=== PATIENT | female | born 1980 | race American Indian/Alaskan Native ===

== ENCOUNTER 2022-02-10 18:36 | Inpatient (IN) | payer MEDICARE ==
[2022-02-10] MEDS ORDERED: ACETAMINOPHEN 650 MG RECT SUPP PR STA (19:26)
[2022-02-10] MEDS ORDERED: SODIUM CHLORIDE 0.9% 500 ML 500 ML IV ONE (19:26)
[2022-02-10] MEDS ORDERED: cefTRIAXone/NS 1 GM/50 ML 1 GM/50 ML BAG IV ONE (19:46)
--- NOTE | 2022-02-10 20:26 | XRay Report ---
CHEST 1 VIEW 02/10/2022 7:20 PM INDICATION / CLINICAL INFORMATION: possible Sepsis. COMPARISON: None available. FINDINGS: SUPPORT DEVICES: None. HEART / MEDIASTINUM: No significant abnormality. LUNGS / PLEURA: Right greater than left coarsened interstitial markings may represent an atypical inf ectious process. No pneumothorax. ADDITIONAL FINDINGS: No significant additional findings. IMPRESSION: 1. Right lung infiltrates possibly representing developing pneumonia. Signer Name: Isaak Vital MD Signed: 02/10/2022 8:22 PM Workstation Name: [email or web address]
[2022-02-10 20:53] LABS: Basophils % (Auto) 0.1 % (0.0-1.8); Hemoglobin 9.9 gm/dl (10.1-14.3); Lymphocytes # (Auto) 0.5 K/mm3 (1.2-5.4); Lymphocytes % (Auto) 4.2 % (13.4-35.0); Mean Corpuscular HGB Conc 32 % (30-34); Mean Corpuscular Volume 91 fl (79-97); Monocytes % (Auto) 8.4 % (0.0-7.3); Platelet Count 642 K/mm3 (140-440); Red Cell Distribution Width 14.8 % (13.2-15.2)
[2022-02-10 20:58] LABS: INR 1.12 (0.87-1.13)
[2022-02-10 21:06] LABS: Albumin 3.2 g/dL (3.9-5); Calcium 11.8 mg/dL (8.4-10.2)
[2022-02-10 21:38] LABS: Chol/HDL Ratio 3.61 %
[2022-02-10 21:50] LABS: Color,Urine Yellow (Yellow)
[2022-02-10 21:53] LABS: Bacteria,Urine 3+ /HPF (Negative); Mucus,Urine FEW /HPF
[2022-02-10 21:54] LABS: Ictotest,Urine Negative (Negative)
[2022-02-10] MEDS ORDERED: SODIUM CHLORIDE 0.9% 1000 ML 1,000 ML ONE (22:04)
[2022-02-10] MEDS ORDERED: POTASSIUM CHLORIDE ER 20 MEQ TAB PO ONE (22:17)
--- NOTE | 2022-02-10 22:21 | Emergency Department Report ---
ED General Adult HPI - General Chief complaint: Altered Mental Status Stated complaint: AMS PUI?: No Time Seen by Provider: 02/10/22 19:45 Source: EMS Mode of arrival: Stretcher Limitations: Altered Mental Status - History of Present Illness Initial comments: Per EMS pt coming from [facility] was found to have AMS around 1500, per staff pt usually verbal however pt is now non-verbal and just looking around Pt febrile, tachycardic with HR of 140 -: days(s) Severity scale (0 -10): 0 Consistency: constant Improves with: none Worsens with: none Associated Symptoms: confusion, fever/chills, weakness Treatments Prior to Arrival: none - Related Data Allergies Allergy/AdvReac Type Severity Reaction Status Date / Time Penicillins Allergy Unknown Verified 02/10/22 19:25 ED Review of Systems ROS: Stated complaint: AMS Other details as noted in HPI Constitutional: denies: chills, fever Eyes: denies: eye pain, eye discharge, vision change ENT: denies: ear pain, throat pain Respiratory: denies: cough, shortness of breath, wheezing Cardiovascular: denies: chest pain, palpitations Endocrine: no symptoms reported Gastrointestinal: denies: abdominal pain, nausea, diarrhea Genitourinary: denies: urgency, dysuria, discharge Musculoskeletal: denies: back pain, joint swelling, arthralgia Skin: denies: rash, lesions Neurological: denies: headache, weakness, paresthesias Psychiatric: denies: anxiety, depression Hematological/Lymphatic: denies: easy bleeding, easy bruising ED Past Medical Hx - Past Medical History Previous Medical History?: No Hx Hypertension: No Hx HIV: Yes Additional medical history: chronic resp failure - Social History Smoking Status: Unknown if ever smoked ED Physical Exam - General Limitations: Altered Mental Status General appearance: lethargic, cachectic - Head Head exam: Present: atraumatic, normocephalic - Eye Eye exam: Present: normal appearance - ENT ENT exam: Present: mucous membranes moist - Neck Neck exam: Present: normal inspection - Respiratory Respiratory exam: Present: rales. Absent: respiratory distress - Cardiovascular Cardiovascular Exam: Present: normal rhythm, tachycardia. Absent: systolic murmur, diastolic murmur, rubs, gallop - GI/Abdominal GI/Abdominal exam: Present: soft, normal bowel sounds - Extremities Exam Extremities exam: Present: normal inspection - Back Exam Back exam: Present: normal inspection - Expanded Neurological Exam Expanded Neurological exam: Present: innattentive Best Eye Response (Spring): (4) open spontaneously Best Motor Response (Spring): (6) obeys commands Best Verbal Response (Spring): (4) confused conversation Spring Total: 14 - Psychiatric Psychiatric exam: Present: normal affect, normal mood - Skin Skin exam: Present: warm, dry, intact, normal color. Absent: rash ED Course Vital Signs 02/10/22 02/10/22 02/10/22 19:15 20:24 20:25 Temperature 101.5 F H 100.9 F H Pulse Rate 140 H 128 H 117 H Respiratory 26 H 39 H 22 Rate Blood Pressure 114/84 Blood Pressure 112/70 [Left] O2 Sat by Pulse 98 80 L Oximetry 02/10/22 02/10/22 02/10/22 20:30 20:46 21:00 Temperature Pulse Rate 126 H 124 H 119 H Respiratory 37 H 33 H 30 H Rate Blood Pressure 114/84 109/82 109/82 Blood Pressure [Left] O2 Sat by Pulse 89 92 94 Oximetry 02/10/22 02/10/22 02/10/22 21:16 21:30 21:45 Temperature Pulse Rate 119 H 118 H 118 H Respiratory 31 H 32 H 37 H Rate Blood Pressure 107/80 107/80 113/79 Blood Pressure [Left] O2 Sat by Pulse 95 97 98 Oximetry 02/10/22 22:01 Temperature Pulse Rate 116 H Respiratory 32 H Rate Blood Pressure 113/79 Blood Pressure [Left] O2 Sat by Pulse 99 Oximetry ED Medical Decision Making - Lab Data Result diagrams: 02/10/22 19:58 02/10/22 19:58 - EKG Data -: EKG Interpreted by Pr EKG shows normal: sinus rhythm Rate: tachycardia - EKG Data Interpretation: no acute changes, nonspecific ST-T wave katie Critical care attestation.: If time is entered above; I have spent that time in minutes in the direct care of this critically ill patient, excluding procedure time. ED Disposition Clinical Impression: Fever, Altered mental status, Pneumonia, Hypokalemia Disposition: ADMITTED INPATIENT Is pt being admited?: Yes Does the pt Need Aspirin: No Condition: Fair Instructions: Bacterial Pneumonia (ED) Referrals: XANDER GARCIA MD [Primary Care Provider] - 3-5 Days
[2022-02-10] MEDS ORDERED: ACETAMINOPHEN 325 MG TAB PO PRN (22:29)
[2022-02-10] MEDS ORDERED: MORPHINE 4 MG/1 ML INJ IV PRN (22:29)
[2022-02-10] MEDS ORDERED: MORPHINE 2 MG/1 ML INJ IV PRN (22:29)
[2022-02-10] MEDS ORDERED: ONDANSETRON 4 MG/2 ML INJ IV PRN (22:29)
[2022-02-10] MEDS ORDERED: MAGNESIUM HYDROXIDE (MOM) ORAL LIQD UDC PO PRN (22:29)
[2022-02-10] MEDS ORDERED: SODIUM CHLORIDE 0.9% 1000 ML 1,000 ML IV SCH (22:30)
--- NOTE | 2022-02-10 22:37 | History and Physical Report ---
History of Present Illness Date of examination: 02/10/22 Date of admission: 02/10/2022 Chief complaint: Altered Mental Status History of present illness: 41 year year female with known history of HIV -CD4 count unknown resident of a nursing brought in to the emergency room today for evaluation of changes in mental status. Most of the history was obtained from the ER staff as patient is unable to give any history at this time. Patient was said to have been having a fever in the [facility]. There has been no history of fall, no nausea or vomiting, no diarrhea, no hematuria or dysuria. Upon arrival in the emergency room patient was found to be tachycardic with heart rate in the 140s. Work-up in the emergency room today, lab reveals mild leukocytosis of 11.5, sodium of 146, hypokalemia of 2.7, BUN of 82 and creatinine of 1.8. Troponin 0.375. Urinalysis was significant for few WBCs and 3+ bacteria. Chest x-ray shows right lung infiltrate possibly representing developing pneumonia. Patient started on empiric IV antibiotics and IV fluid. Potassium is also being repleted. Past History Past Medical History: HIV/AIDS, other (Chronic Respiratory Failure ) Past Surgical History: No surgical history Social history: other (Resides in a Detention) Family history: no significant family history Medications and Allergies Allergies Allergy/AdvReac Type Severity Reaction Status Date / Time Penicillins Allergy Unknown Verified 02/10/22 19:25 Active Meds: Active Medications Acetaminophen (Acetaminophen 325 Mg Tab) 650 mg PO Q4H PRN PRN Reason: Pain MILD(1-3)/Fever >100.5/BONNER Heparin Sodium (Porcine) (Heparin 5,000 Unit/1 Ml Vial) 5,000 unit SUB-Q Q8HR MARTINEZ Sodium Chloride (Nacl 0.9% 1000 Ml) 1,000 mls @ 125 mls/hr IV DIRECT MARTINEZ Magnesium Hydroxide (Magnesium Hydroxide (Mom) Oral Liqd Udc) 30 ml PO Q4H PRN PRN Reason: Constipation Morphine Sulfate (Morphine 2 Mg/1 Ml Inj) 2 mg IV Q4H PRN PRN Reason: Pain, Moderate (4-6) Morphine Sulfate (Morphine 4 Mg/1 Ml Inj) 4 mg IV Q4H PRN PRN Reason: Pain , Severe (7-10) Ondansetron HCl (Ondansetron 4 Mg/2 Ml Inj) 4 mg IV Q8H PRN PRN Reason: Nausea And Vomiting Sodium Chloride (Sodium Chloride 0.9% 10 Ml Flush Syringe) 10 ml IV BID MARTINEZ Sodium Chloride (Sodium Chloride 0.9% 10 Ml Flush Syringe) 10 ml IV PRN PRN PRN Reason: LINE FLUSH Review of Systems ROS unobtainable: due to mental status Exam - Constitutional Vitals: Temp Pulse Resp BP Pulse Ox 100.9 F H 116 H 32 H 113/79 99 02/10/22 20:25 02/10/22 22:01 02/10/22 22:01 02/10/22 22:01 02/10/22 22:01 General appearance: Present: no acute distress, cachectic - EENT Eyes: Present: PERRL, EOM intact. Absent: scleral icterus ENT: hearing intact, clear oral mucosa, dentition normal - Neck Neck: Present: supple, normal ROM - Respiratory Respiratory effort: normal Respiratory: bilateral: diminished - Cardiovascular Rhythm: regular Heart Sounds: Present: S1 & S2. Absent: gallop, systolic murmur, diastolic murmur, rub, click - Extremities Extremities: no ischemia, pulses intact, pulses symmetrical, No edema, normal temperature, normal color, Full ROM Peripheral Pulses: within normal limits - Abdominal General gastrointestinal: Present: soft, non-tender, non-distended, normal bowel sounds. Absent: mass - Integumentary Integumentary: Present: clear, warm, dry, normal turgor. Absent: rash - Musculoskeletal Musculoskeletal: strength equal bilaterally - Psychiatric Psychiatric: appropriate mood/affect, intact judgment & insight, memory intact, cooperative - Neurologic Neurologic: CNII-XII intact, no focal deficits, moves all extremities HEART Score - HEART Score Troponin: Troponin T 0.375 ng/mL (0.00-0.029) H* 02/10/22 19:58 Results - Labs CBC & Chem 7: 02/10/22 19:58 02/10/22 19:58 Labs: Abnormal lab results 02/10/22 02/10/22 02/10/22 Range/Units 19:58 19:58 19:58 WBC 11.5 H (4.5-11.0) K/mm3 RBC 3.40 L (3.65-5.03) M/mm3 Hgb 9.9 L (10.1-14.3) gm/dl Plt Count 642 H (140-440) K/mm3 Lymph % (Auto) 4.2 L (13.4-35.0) % Mccone % (Auto) 8.4 H (0.0-7.3) % Lymph # (Auto) 0.5 L (1.2-5.4) K/mm3 [place]one # (Auto) 1.0 H (0.0-0.8) K/mm3 Seg Neutrophils % 87.3 H (40.0-70.0) % Seg Neutrophils # 10.0 H (1.8-7.7) K/mm3 PT 15.7 H (12.2-14.9) Sec. VBG pH (7.320-7.420) Sodium 146 H (137-145) mmol/L Potassium 2.7 L* (3.6-5.0) mmol/L Chloride 97.3 L (98-107) mmol/L Carbon Dioxide 33 H (22-30) mmol/L BUN 82 H (7-17) mg/dL Creatinine 1.8 H (0.6-1.2) mg/dL Glucose 130 H (65-100) mg/dL Calcium 11.8 H (8.4-10.2) mg/dL Total Creatine Kinase (30-135) units/L Troponin T (0.00-0.029) ng/mL Total Protein 8.9 H (6.3-8.2) g/dL Albumin 3.2 L (3.9-5) g/dL Triglycerides (2-149) mg/dL HDL Cholesterol (40-59) mg/dL Urine WBC (Auto) (0.0-6.0) /HPF 02/10/22 02/10/22 02/10/22 Range/Units 19:58 19:58 Unknown WBC (4.5-11.0) K/mm3 RBC (3.65-5.03) M/mm3 Hgb (10.1-14.3) gm/dl Plt Count (140-440) K/mm3 Lymph % (Auto) (13.4-35.0) % Mccone % (Auto) (0.0-7.3) % Lymph # (Auto) (1.2-5.4) K/mm3 M[place]one # (Auto) (0.0-0.8) K/mm3 Seg Neutrophils % (40.0-70.0) % Seg Neutrophils # (1.8-7.7) K/mm3 PT (12.2-14.9) Sec. VBG pH 7.483 H (7.320-7.420) Sodium (137-145) mmol/L Potassium (3.6-5.0) mmol/L Chloride (98-107) mmol/L Carbon Dioxide (22-30) mmol/L BUN (7-17) mg/dL Creatinine (0.6-1.2) mg/dL Glucose (65-100) mg/dL Calcium (8.4-10.2) mg/dL Total Creatine Kinase 469 H (30-135) units/L Troponin T 0.375 H* (0.00-0.029) ng/mL Total Protein (6.3-8.2) g/dL Albumin (3.9-5) g/dL Triglycerides 178 H (2-149) mg/dL HDL Cholesterol 36 L (40-59) mg/dL Urine WBC (Auto) 7.0 H (0.0-6.0) /HPF Assessment and Plan Assessment : 1.Altered Mental Status 2.Pneumonia 3.Hypokalemia 4.H/O HIV- CD 4 count unknown 5. Pyuria Plan: 1.Commenced on empiric antibiotics 2.Potassium will be repleted. Will Monitor chemistry 3.Resume on routine home medications 4.Consult placed to infectious disease for evaluation and recommendations. DVT Prophylaxis:SQ heparin Code Status: Full Code
[2022-02-10] MEDS ORDERED: VANCOMYCIN PHARMACY TO DOSE IV SCH (23:45)
[2022-02-10] MEDS ORDERED: VANCOMYCIN 1,250 MG in SODIUM CHLORIDE 0.9% 250ML 250 ML IV ONE (23:45)
[2022-02-11] MEDS: HEPARIN 5,000 UNIT/1 ML VIAL SUB-Q SCH ×3 (05:30→21:35)
--- NOTE | 2022-02-11 08:05 | Progress Note ---
Assessment and Plan Assessment and plan: #Sepsis secondary to acute cystitis #Left axilla wound, chronic -T-max 101.5, [facility] -Chest x-ray reviewed and UA with pyuria; urine culture pending -Blood cultures collected; coronavirus PCR also ordered -Continue vancomycin and cefepime at this time -Will order wound care for left axillary wound -Infectious disease consulted, assistance appreciated #Acute toxic metabolic encephalopathy -Unsure of patient's baseline, she is responsive to her name but unable to provide history -We will continue to monitor #Severe hypokalemia #Hypomagnesemia-resolved -K 2.7-> 2.9 -will continue to replete and monitor K levels -magnesium repleted #HIV -CD4 count unknown -Records reviewed from [facility], patient taking ARV -will restart prezista, ritonavir, emtricitabine/tenofovir at home doses -CD4 count collected -ID following, assistance appreciated #moderate calorie malnutrition #poor PO intake -Nutrition consult -if patient continues to have poor intake, may need PEG tube prior to discharge #Seizure disorder -Continue Keppra 1 g daily #Discharge planning -Patient a resident at [facility]. Next of kin contacted (mother Neetu Enamorado [phone]) voicemail left. Plan to discharge back to prison once clinically stable History Interval history: Patient febrile with last temp of 100.9. She does not respond to questioning but moaned when left arm move. Left axillary wound visualized and does not appear to be infected. We will continue with current care plan. Hospitalist Physical - Physical exam Narrative exam: GENERAL: Cachextic female. In no acute distress. HEENT: Poor dentition. Temporal wasting. PERRL. CHEST/LUNGS: CTAB on room air HEART/CARDIOVASCULAR: RRR. No murmur, rubs or gallops appreciated. ABDOMEN: +BS. NT/ND. SKIN: L axilla with white substance, no drainage appreciated. NEURO: No focal motor deficit appreciated. MUSCULOSKELETAL: No joint effusion EXTREMITIES: No cyanosis, clubbing or edema. PSYCH: Unable to assess. - Constitutional Vitals: Temp Pulse Resp BP Pulse Ox 100.9 F H 97 H 29 H 115/84 98 02/10/22 20:25 02/11/22 03:16 02/11/22 03:16 02/11/22 03:16 02/11/22 05:47 HEART Score - HEART Score Troponin: Troponin T 0.375 ng/mL (0.00-0.029) H* 02/10/22 19:58 Results - Labs CBC & Chem 7: 02/16/22 11:46 02/19/22 05:52 Labs: Laboratory Last Values WBC 11.5 K/mm3 (4.5-11.0) H 02/10/22 19:58 RBC 3.40 M/mm3 (3.65-5.03) L 02/10/22 19:58 Hgb 9.9 gm/dl (10.1-14.3) L 02/10/22 19:58 Hct 31.0 % (30.3-42.9) 02/10/22 19:58 MCV 91 fl (79-97) 02/10/22 19:58 MCH 29 pg (28-32) 02/10/22 19:58 MCHC 32 % (30-34) 02/10/22 19:58 RDW 14.8 % (13.2-15.2) 02/10/22 19:58 Plt Count 642 K/mm3 (140-440) H 02/10/22 19:58 Lymph % (Auto) 4.2 % (13.4-35.0) L 02/10/22 19:58 [place] % (Auto) 8.4 % (0.0-7.3) H 02/10/22 19:58 Eos % (Auto) 0.0 % (0.0-4.3) 02/10/22 19:58 Baso % (Auto) 0.1 % (0.0-1.8) 02/10/22 19:58 Lymph # (Auto) 0.5 K/mm3 (1.2-5.4) L 02/10/22 19:58 [place] # (Auto) 1.0 K/mm3 (0.0-0.8) H 02/10/22 19:58 Eos # (Auto) 0.0 K/mm3 (0.0-0.4) 02/10/22 19:58 Baso # (Auto) 0.0 K/mm3 (0.0-0.1) 02/10/22 19:58 Seg Neutrophils % 87.3 % (40.0-70.0) H 02/10/22 19:58 Seg Neutrophils # 10.0 K/mm3 (1.8-7.7) H 02/10/22 19:58 PT 15.7 Sec. (12.2-14.9) H 02/10/22 19:58 INR 1.12 (0.87-1.13) 02/10/22 19:58 VBG pH 7.483 (7.320-7.420) H 02/10/22 19:58 Sodium 146 mmol/L (137-145) H 02/10/22 19:58 Potassium 2.7 mmol/L (3.6-5.0) L* 02/10/22 19:58 Chloride 97.3 mmol/L (98-107) L 02/10/22 19:58 Carbon Dioxide 33 mmol/L (22-30) H 02/10/22 19:58 Anion Gap 18 mmol/L 02/10/22 19:58 BUN 82 mg/dL (7-17) H 02/10/22 19:58 Creatinine 1.8 mg/dL (0.6-1.2) H 02/10/22 19:58 Estimated GFR 38 ml/min 02/10/22 19:58 BUN/Creatinine Ratio 46 % 02/10/22 19:58 Glucose 130 mg/dL (65-100) H 02/10/22 19:58 Lactic Acid 0.90 mmol/L (0.7-2.0) 02/11/22 01:54 Calcium 11.8 mg/dL (8.4-10.2) H 02/10/22 19:58 Total Bilirubin 0.60 mg/dL (0.1-1.2) 02/10/22 19:58 AST 34 units/L (5-40) 02/10/22 19:58 ALT 12 units/L (7-56) 02/10/22 19:58 Alkaline Phosphatase 102 units/L (35-129) 02/10/22 19:58 Total Creatine Kinase 469 units/L (30-135) H 02/10/22 19:58 Troponin T 0.375 ng/mL (0.00-0.029) H* 02/10/22 19:58 Total Protein 8.9 g/dL (6.3-8.2) H 02/10/22 19:58 Albumin 3.2 g/dL (3.9-5) L 02/10/22 19:58 Albumin/Globulin Ratio 0.6 % 02/10/22 19:58 Triglycerides 178 mg/dL (2-149) H 02/10/22 19:58 Cholesterol 130 mg/dL (50-199) 02/10/22 19:58 LDL Cholesterol Direct 50 mg/dL (50-130) 02/10/22 19:58 HDL Cholesterol 36 mg/dL (40-59) L 02/10/22 19:58 Cholesterol/HDL Ratio 3.61 % 02/10/22 19:58 Urine Color Yellow (Yellow) 02/10/22 Unknown Urine Turbidity Clear (Clear) 02/10/22 Unknown Specific [place] (Man) 1.020 (1.003-1.030) 02/10/22 Unknown Ur Protein (Man) 2+ mg/dL (Negative) 02/10/22 Unknown Ur Ketones (Man) 5mg/dl (Negative) 02/10/22 Unknown Ur Nitrite (Man) Negative (Negative) 02/10/22 Unknown Urine Bilirubin (Man) Moderate (Negative) 02/10/22 Unknown Urine Ictotest Negative (Negative) 02/10/22 Unknown Leukocyte Esterase (Man) Negative (Negative) 02/10/22 Unknown Urine WBC (Auto) 7.0 /HPF (0.0-6.0) H 02/10/22 Unknown Urine RBC (Auto) 2.0 /HPF (0.0-6.0) 02/10/22 Unknown U Epithel Cells (Auto) 5.0 /HPF (0-13.0) 02/10/22 Unknown Urine Bacteria (Auto) 3+ /HPF (Negative) 02/10/22 Unknown Urine RBC (Manual) 5+ (Negative) 02/10/22 Unknown Urine Mucus Few /HPF 02/10/22 Unknown Urine Yeast (Budding) 2+ /HPF 02/10/22 Unknown Microbiology: Microbiology 02/10/22 19:58 Peripheral/Venous Blood Culture - Preliminary Culture in Progress 02/10/22 19:58 Peripheral/Venous Blood Culture - Preliminary Culture in Progress Bunn/IV: Voiding Method Incontinent Active Medications - Current Medications Current Medications: Generic Name Dose Route Start Last Admin Trade Name Freq PRN Reason Stop Dose Admin Acetaminophen 650 mg 02/10/22 22:29 Acetaminophen 325 Mg Tab PO Q4H PRN Pain MILD(1-3)/Fever >100.5/BONNER Heparin Sodium (Porcine) 5,000 unit 02/11/22 06:00 02/11/22 05:30 Heparin 5,000 Unit/1 Ml Vial SUB-Q 5,000 unit Q8HR MARTINEZ Administration Sodium Chloride 1,000 mls @ 125 mls/hr 02/10/22 22:30 02/11/22 04:26 Nacl 0.9% 1000 Ml IV 125 mls/hr DIRECT MARTINEZ Administration Cefepime HCl 2 gm in 100 mls @ 200 mls/hr 02/11/22 10:00 Cefepime/Ns 2 Gm/100 Ml IV Q12H MARTINEZ Protocol Vancomycin HCl 1 gm in 250 mls @ 166.667 mls/hr 02/11/22 22:00 Vancomycin/Ns 1 Gm/250 Ml IV Q24H MARTINEZ Magnesium Hydroxide 30 ml 02/10/22 22:29 Magnesium Hydroxide (Mom) Oral Liqd Udc PO Q4H PRN Constipation Morphine Sulfate 2 mg 02/10/22 22:29 02/11/22 04:23 Morphine 2 Mg/1 Ml Inj IV 2 mg Q4H PRN Administration Pain, Moderate (4-6) Morphine Sulfate 4 mg 02/10/22 22:29 Morphine 4 Mg/1 Ml Inj IV Q4H PRN Pain , Severe (7-10) Ondansetron HCl 4 mg 02/10/22 22:29 Ondansetron 4 Mg/2 Ml Inj IV Q8H PRN Nausea And Vomiting Sodium Chloride 10 ml 02/11/22 10:00 Sodium Chloride 0.9% 10 Ml Flush Syringe IV BID MARTINEZ Sodium Chloride 10 ml 02/10/22 22:29 Sodium Chloride 0.9% 10 Ml Flush Syringe IV PRN PRN LINE FLUSH
[2022-02-11 09:03] LABS: Calcium 10.6 mg/dL (8.4-10.2)
[2022-02-11] MEDS: CEFEPIME/NS 2 GM/100 ML 2 GM/100 ML BAG IV SCH ×2 (09:17→22:55)
[2022-02-11] MEDS: POTASSIUM CHLORIDE 10 MEQ 10 MEQ/100 ML BAG IV SCH ×4 (10:12→13:37)
[2022-02-11] MEDS: POTASSIUM CHLORIDE ER 20 MEQ TAB PO SCH ×2 (10:15→13:40)
--- NOTE | 2022-02-11 15:55 | Consultation ---
History of Present Illness - Reason for Consult Consult date: 02/11/22 - History of Present Illness 41-year-old female past medical history HIV, who is a [facility] of a [facility] presented to hospital with altered mental status. She was reportedly having fever at the [facility]. She is found to be septic, and urinalysis was revealing a possible UTI. Febrile to 101.5 with a white count of 11.5. eGFR 50. Blood cultures no growth so far. Currently on cefepime and vancomycin. Imaging personally reviewed: Chest x-ray: Right lung infiltrates Unable to complete review of systems due to altered mental status. Past History Past Medical History: HIV/AIDS, other (Chronic Respiratory Failure ) Past Surgical History: No surgical history Social history: other (Resides in a Senior Care) Family history: no significant family history Medications and Allergies Allergies Allergy/AdvReac Type Severity Reaction Status Date / Time Penicillins Allergy Unknown Verified 02/10/22 19:25 Home Medications Medication Instructions Recorded Confirmed Last Taken Type No Known Home Medications [No 02/11/22 02/11/22 Unknown History Reported Home Medications] Active Meds: Active Medications Acetaminophen (Acetaminophen 325 Mg Tab) 650 mg PO Q4H PRN PRN Reason: Pain MILD(1-3)/Fever >100.5/BONNER Heparin Sodium (Porcine) (Heparin 5,000 Unit/1 Ml Vial) 5,000 unit SUB-Q Q8HR MARTINEZ Last Admin: 02/11/22 14:13 Dose: 5,000 unit Sodium Chloride (Nacl 0.9% 1000 Ml) 1,000 mls @ 125 mls/hr IV DIRECT MARTINEZ Last Admin: 02/11/22 04:26 Dose: 125 mls/hr Cefepime HCl (Cefepime/Ns 2 Gm/100 Ml) 2 gm in 100 mls @ 200 mls/hr IV Q12H MARTINEZ; Protocol Last Admin: 02/11/22 09:17 Dose: 200 mls/hr Vancomycin HCl (Vancomycin/Ns 1 Gm/250 Ml) 1 gm in 250 mls @ 166.667 mls/hr IV Q24H MARTINEZ Magnesium Hydroxide (Magnesium Hydroxide (Mom) Oral Liqd Udc) 30 ml PO Q4H PRN PRN Reason: Constipation Morphine Sulfate (Morphine 2 Mg/1 Ml Inj) 2 mg IV Q4H PRN PRN Reason: Pain, Moderate (4-6) Last Admin: 02/11/22 04:23 Dose: 2 mg Morphine Sulfate (Morphine 4 Mg/1 Ml Inj) 4 mg IV Q4H PRN PRN Reason: Pain , Severe (7-10) Ondansetron HCl (Ondansetron 4 Mg/2 Ml Inj) 4 mg IV Q8H PRN PRN Reason: Nausea And Vomiting Sodium Chloride (Sodium Chloride 0.9% 10 Ml Flush Syringe) 10 ml IV BID MARTINEZ Last Admin: 02/11/22 09:17 Dose: 10 ml Sodium Chloride (Sodium Chloride 0.9% 10 Ml Flush Syringe) 10 ml IV PRN PRN PRN Reason: LINE FLUSH Physical Examination - Physical Exam Narrative exam: Physical Exam: Constitutional: Awake, confused Head, Ears, Nose: Normocephalic, atraumatic. External ears, nose normal Eyes: Conjunctivae/corneas clear. No icterus. No ptosis. Neck: Supple, no meningeal signs Oral: dentition fair, no thrush Cardiovascular: S1, S2 normal. Respiratory: Good air entry, clear to auscultation bilaterally GI: Soft, non-tender; bowel sounds normal. No peritoneal signs. Musculoskeletal: No pedal edema, no cyanosis. Skin: No rash or abscess Hem/Lymphatic: No palpable cervical or supraclavicular nodes. No lymphangitis Psych: Confused Neurological: Awake, confused - Constitutional Vitals: Vital Signs Temp Pulse Resp BP Pulse Ox 100.9 F H 97 H 29 H 115/84 100 02/10/22 20:25 02/11/22 03:16 02/11/22 03:16 02/11/22 03:16 02/11/22 10:00 Temperature -Last 24 Hours Temperature 100.9 F Temperature 101.5 F Results - Labs CBC & Chem 7: 02/10/22 19:58 02/11/22 07:58 Labs: Abnormal lab results 02/10/22 02/10/22 02/10/22 Range/Units 19:58 19:58 19:58 WBC 11.5 H (4.5-11.0) K/mm3 RBC 3.40 L (3.65-5.03) M/mm3 Hgb 9.9 L (10.1-14.3) gm/dl Plt Count 642 H (140-440) K/mm3 Lymph % (Auto) 4.2 L (13.4-35.0) % [place] % (Auto) 8.4 H (0.0-7.3) % Lymph # (Auto) 0.5 L (1.2-5.4) K/mm3 [place] # (Auto) 1.0 H (0.0-0.8) K/mm3 Seg Neutrophils % 87.3 H (40.0-70.0) % Seg Neutrophils # 10.0 H (1.8-7.7) K/mm3 PT 15.7 H (12.2-14.9) Sec. VBG pH (7.320-7.420) Sodium 146 H (137-145) mmol/L Potassium 2.7 L* (3.6-5.0) mmol/L Chloride 97.3 L (98-107) mmol/L Carbon Dioxide 33 H (22-30) mmol/L BUN 82 H (7-17) mg/dL Creatinine 1.8 H (0.6-1.2) mg/dL Glucose 130 H (65-100) mg/dL Calcium 11.8 H (8.4-10.2) mg/dL Magnesium (1.7-2.3) mg/dL Total Creatine Kinase (30-135) units/L Troponin T (0.00-0.029) ng/mL Total Protein 8.9 H (6.3-8.2) g/dL Albumin 3.2 L (3.9-5) g/dL Triglycerides (2-149) mg/dL HDL Cholesterol (40-59) mg/dL Urine WBC (Auto) (0.0-6.0) /HPF 02/10/22 02/10/22 02/10/22 Range/Units 19:58 19:58 Unknown WBC (4.5-11.0) K/mm3 RBC (3.65-5.03) M/mm3 Hgb (10.1-14.3) gm/dl Plt Count (140-440) K/mm3 Lymph % (Auto) (13.4-35.0) % [place] % (Auto) (0.0-7.3) % Lymph # (Auto) (1.2-5.4) K/mm3 [place] # (Auto) (0.0-0.8) K/mm3 Seg Neutrophils % (40.0-70.0) % Seg Neutrophils # (1.8-7.7) K/mm3 PT (12.2-14.9) Sec. VBG pH 7.483 H (7.320-7.420) Sodium (137-145) mmol/L Potassium (3.6-5.0) mmol/L Chloride (98-107) mmol/L Carbon Dioxide (22-30) mmol/L BUN (7-17) mg/dL Creatinine (0.6-1.2) mg/dL Glucose (65-100) mg/dL Calcium (8.4-10.2) mg/dL Magnesium (1.7-2.3) mg/dL Total Creatine Kinase 469 H (30-135) units/L Troponin T 0.375 H* (0.00-0.029) ng/mL Total Protein (6.3-8.2) g/dL Albumin (3.9-5) g/dL Triglycerides 178 H (2-149) mg/dL HDL Cholesterol 36 L (40-59) mg/dL Urine WBC (Auto) 7.0 H (0.0-6.0) /HPF 02/11/22 Range/Units 07:58 WBC (4.5-11.0) K/mm3 RBC (3.65-5.03) M/mm3 Hgb (10.1-14.3) gm/dl Plt Count (140-440) K/mm3 Lymph % (Auto) (13.4-35.0) % [place] % (Auto) (0.0-7.3) % Lymph # (Auto) (1.2-5.4) K/mm3 [place] # (Auto) (0.0-0.8) K/mm3 Seg Neutrophils % (40.0-70.0) % Seg Neutrophils # (1.8-7.7) K/mm3 PT (12.2-14.9) Sec. VBG pH (7.320-7.420) Sodium (137-145) mmol/L Potassium 2.8 L* (3.6-5.0) mmol/L Chloride (98-107) mmol/L Carbon Dioxide (22-30) mmol/L BUN 76 H (7-17) mg/dL Creatinine 1.4 H (0.6-1.2) mg/dL Glucose 111 H (65-100) mg/dL Calcium 10.6 H (8.4-10.2) mg/dL Magnesium 2.50 H (1.7-2.3) mg/dL Total Creatine Kinase (30-135) units/L Troponin T 0.281 H* D (0.00-0.029) ng/mL Total Protein (6.3-8.2) g/dL Albumin (3.9-5) g/dL Triglycerides (2-149) mg/dL HDL Cholesterol (40-59) mg/dL Urine WBC (Auto) (0.0-6.0) /HPF Assessment and Plan Cultures: Blood culture 02/10/2022 no growth so far A/P: 41-year-old female past medical history HIV now with: #Acute sepsis: Present with fevers, leukocytosis. Secondary to possible UTI. #Pyuria: With altered mental status, unable to assess for dysuria. Awaiting urine cultures. #Acute encephalopathy: Possibly secondary to UTI #HIV: Unable to assess if she is taking antiretrovirals. She is in a fci as such would presume she is on ART, however unclear what regimen #LEAH: Improving #Penicillin allergy: Tolerating cefepime Recs: -Continue cefepime for now. Plan 3 to 5 days -Follow-up blood, urine cultures -CD4, viral load ordered by primary team, follow-up results. -When encephalopathy improves, will assess if currently on ART Thank you for the consult, we will continue to follow. MD [facility] ([facility]) O: [phone] F: [phone]
[2022-02-11] MEDS: hydroCHLOROthiazide 25 MG TAB PO SCH (18:29)
[2022-02-11] MEDS: RITONAVIR 100 MG TAB PO SCH (18:29)
[2022-02-11] MEDS: DARUNAVIR 800 MG TAB PO SCH (18:29)
[2022-02-11] MEDS: EMTRICITABINE 200 MG CAP PO SCH (18:29)
[2022-02-11] MEDS: levETIRAcetam 500 MG TAB PO SCH (18:29)
[2022-02-11] MEDS: TENOFOVIR 300 MG TAB PO SCH (18:30)
[2022-02-11] MEDS ORDERED: VANCOMYCIN/NS 1 GM/250 ML 1 GM/250 ML BAG IV SCH (22:00)
[2022-02-11] MEDS: D5W/0.45% NACL 1,000 ML IV SCH (22:56)
[2022-02-12] MEDS: HEPARIN 5,000 UNIT/1 ML VIAL SUB-Q SCH ×3 (06:01→21:42)
[2022-02-12] MEDS ORDERED: POTASSIUM CHLORIDE ER 20 MEQ TAB PO SCH (10:00)
[2022-02-12] MEDS: CEFEPIME/NS 2 GM/100 ML 2 GM/100 ML BAG IV SCH ×2 (10:00→21:41)
[2022-02-12] MEDS: DARUNAVIR 800 MG TAB PO SCH (10:38)
[2022-02-12] MEDS: EMTRICITABINE 200 MG CAP PO SCH (10:38)
[2022-02-12] MEDS: levETIRAcetam 500 MG TAB PO SCH (10:38)
[2022-02-12] MEDS: hydroCHLOROthiazide 25 MG TAB PO SCH (10:38)
[2022-02-12] MEDS: ASPIRIN 81 MG TAB CHEW PO SCH (10:38)
[2022-02-12] MEDS: RITONAVIR 100 MG TAB PO SCH (10:38)
[2022-02-12] MEDS: TENOFOVIR 300 MG TAB PO SCH (10:39)
[2022-02-12] MEDS: POTASSIUM CHLORIDE 10 MEQ 10 MEQ/100 ML BAG IV SCH ×8 (11:47→21:41)
--- NOTE | 2022-02-12 11:48 | Progress Note ---
Assessment and Plan Cultures: Blood culture 02/10/2022 no growth so far A/P: 41-year-old female past medical history HIV now with: #Acute sepsis: Present with fevers, leukocytosis. Secondary to possible UTI. #Pyuria: With altered mental status, unable to assess for dysuria. Awaiting urine cultures. #Acute encephalopathy: Possibly secondary to UTI #HIV: Unable to assess if she is taking antiretrovirals. She is in a assisted as such would presume she is on ART, however unclear what regimen #LEAH: Improving #Penicillin allergy: Tolerating cefepime Recs: -Continue cefepime for now. Plan 3 to 5 days -Follow-up blood, urine cultures -CD4, viral load ordered by primary team, follow-up results. -When encephalopathy improves, will assess if currently on ART -Ordered new CBC in AM. Thank you for the consult, we will continue to follow. Dahlia Lucas MD [facility] ([facility] O: [phone] F: [phone] Subjective Date of service: 02/12/22 Interval history: Afebrile now, no acute changes. Urine culture with Enterococcus Objective - Exam Narrative Exam: Physical Exam: Constitutional: Awake, confused Head, Ears, Nose: Normocephalic, atraumatic. External ears, nose normal Eyes: Conjunctivae/corneas clear. No icterus. No ptosis. Neck: Supple, no meningeal signs Oral: dentition fair, no thrush Cardiovascular: S1, S2 normal. Respiratory: Good air entry, clear to auscultation bilaterally GI: Soft, non-tender; bowel sounds normal. No peritoneal signs. Musculoskeletal: No pedal edema, no cyanosis. Skin: No rash or abscess Hem/Lymphatic: No palpable cervical or supraclavicular nodes. No lymphangitis Psych: Confused Neurological: Awake, confused - Constitutional Vitals: Vital Signs Temp Pulse Resp BP Pulse Ox 97.3 F L 87 16 120/88 92 02/12/22 05:06 02/12/22 05:06 02/12/22 05:06 02/12/22 05:06 02/12/22 05:06 Temperature -Last 24 Hours Temperature 97.3 F Temperature 97.8 F - Labs CBC & Chem 7: 02/10/22 19:58 02/12/22 04:41 Labs: Abnormal lab results 02/11/22 02/12/22 02/12/22 Range/Units 08:49 04:41 04:41 Potassium 2.7 L* (3.6-5.0) mmol/L Troponin T 0.276 H* (0.00-0.029) ng/mL Coronavirus (PCR) Positive A (Negative)
--- NOTE | 2022-02-12 12:25 | Progress Note ---
Assessment and Plan Assessment and plan: #Sepsis secondary to Enterococcus UTI/cystitis #Left axilla wound, chronic -T-max 101.5, patient reported fevers at senior living -Chest x-ray reviewed and UA with pyuria; urine culture pending -Blood cultures collected; coronavirus PCR also ordered -Vancomycin discontinued. Continue cefepime (completes on 02/14/2022) -Will order wound care for left axillary wound -Infectious disease consulted, assistance appreciated #Acute toxic metabolic encephalopathy -Unsure of patient's baseline, she is responsive to her name but unable to provide history -We will continue to monitor #Severe hypokalemia #Hypomagnesemia-resolved -K 2.7-> 2.9-->2.8 -Continue aggressive potassium repletion. -magnesium repleted #HIV -CD4 count unknown -Records reviewed from [place], patient taking ARV -Continue prezista, ritonavir, emtricitabine/tenofovir at home doses -CD4 count collected -ID following, assistance appreciated #moderate calorie malnutrition #poor PO intake -Nutrition consult -if patient continues to have poor intake, may need PEG tube prior to discharge #Seizure disorder -Continue Keppra 1 g daily #Discharge planning -Patient a resident at [facility] Next of kin contacted (mother Neetu Enamorado [phone]) voicemail left. Plan to discharge back to senior living once clinically stable Disposition Plan: Continue medical management Total Time Spent with Patient (Minutes): 45 minutes History Interval history: No acute events overnight. Hospitalist Physical - Constitutional Vitals: Temp Pulse Resp BP Pulse Ox 97.3 F L 87 16 120/88 94 02/12/22 05:06 02/12/22 05:06 02/12/22 05:06 02/12/22 05:06 02/12/22 10:00 General appearance: Present: no acute distress, cachectic, disheveled - EENT Eyes: Present: PERRL, EOM intact ENT: hearing intact, clear oral mucosa, poor dentition, edentulous - Neck Neck: Present: supple, normal ROM - Respiratory Respiratory effort: normal Respiratory: bilateral: CTA - Cardiovascular Rhythm: regular Heart Sounds: Present: S1 & S2 - Extremities Extremities: no ischemia, pulses intact, pulses symmetrical, No edema, normal temperature, normal color Peripheral Pulses: within normal limits - Abdominal General gastrointestinal: soft, non-tender, non-distended, normal bowel sounds - Integumentary Integumentary: Present: clear, warm, dry - Psychiatric Psychiatric: other (Unable to fully examine given patient's acute metabolic encephalopathy) - Neurologic Neurologic: other (Generalized weakness; alert and oriented x1) - Allied Health Allied health notes reviewed: nursing, social work HEART Score - HEART Score Troponin: Troponin T 0.276 ng/mL (0.00-0.029) H* 02/12/22 04:41 Results - Labs CBC & Chem 7: 02/10/22 19:58 02/12/22 04:41 Labs: Laboratory Last Values WBC 11.5 K/mm3 (4.5-11.0) H 02/10/22 19:58 RBC 3.40 M/mm3 (3.65-5.03) L 02/10/22 19:58 Hgb 9.9 gm/dl (10.1-14.3) L 02/10/22 19:58 Hct 31.0 % (30.3-42.9) 02/10/22 19:58 MCV 91 fl (79-97) 02/10/22 19:58 MCH 29 pg (28-32) 02/10/22 19:58 MCHC 32 % (30-34) 02/10/22 19:58 RDW 14.8 % (13.2-15.2) 02/10/22 19:58 Plt Count 642 K/mm3 (140-440) H 02/10/22 19:58 Lymph % (Auto) 4.2 % (13.4-35.0) L 02/10/22 19:58 [place] % (Auto) 8.4 % (0.0-7.3) H 02/10/22 19:58 Eos % (Auto) 0.0 % (0.0-4.3) 02/10/22 19:58 Baso % (Auto) 0.1 % (0.0-1.8) 02/10/22 19:58 Lymph # (Auto) 0.5 K/mm3 (1.2-5.4) L 02/10/22 19:58 [place] # (Auto) 1.0 K/mm3 (0.0-0.8) H 02/10/22 19:58 Eos # (Auto) 0.0 K/mm3 (0.0-0.4) 02/10/22 19:58 Baso # (Auto) 0.0 K/mm3 (0.0-0.1) 02/10/22 19:58 Seg Neutrophils % 87.3 % (40.0-70.0) H 02/10/22 19:58 Seg Neutrophils # 10.0 K/mm3 (1.8-7.7) H 02/10/22 19:58 PT 15.7 Sec. (12.2-14.9) H 02/10/22 19:58 INR 1.12 (0.87-1.13) 02/10/22 19:58 VBG pH 7.483 (7.320-7.420) H 02/10/22 19:58 Sodium 145 mmol/L (137-145) 02/11/22 07:58 Potassium 2.7 mmol/L (3.6-5.0) L* 02/12/22 04:41 Chloride 105.4 mmol/L (98-107) 02/11/22 07:58 Carbon Dioxide 24 mmol/L (22-30) D 02/11/22 07:58 Anion Gap 18 mmol/L 02/11/22 07:58 BUN 76 mg/dL (7-17) H 02/11/22 07:58 Creatinine 1.4 mg/dL (0.6-1.2) H 02/11/22 07:58 Estimated GFR 50 ml/min 02/11/22 07:58 BUN/Creatinine Ratio 54 % 02/11/22 07:58 Glucose 111 mg/dL (65-100) H 02/11/22 07:58 POC Glucose 97 mg/dL (70-105) 02/12/22 05:54 Lactic Acid 0.90 mmol/L (0.7-2.0) 02/11/22 01:54 Calcium 10.6 mg/dL (8.4-10.2) H 02/11/22 07:58 Magnesium 2.50 mg/dL (1.7-2.3) H 02/11/22 07:58 Total Bilirubin 0.60 mg/dL (0.1-1.2) 02/10/22 19:58 AST 34 units/L (5-40) 02/10/22 19:58 ALT 12 units/L (7-56) 02/10/22 19:58 Alkaline Phosphatase 102 units/L (35-129) 02/10/22 19:58 Total Creatine Kinase 469 units/L (30-135) H 02/10/22 19:58 Troponin T 0.276 ng/mL (0.00-0.029) H* 02/12/22 04:41 Total Protein 8.9 g/dL (6.3-8.2) H 02/10/22 19:58 Albumin 3.2 g/dL (3.9-5) L 02/10/22 19:58 Albumin/Globulin Ratio 0.6 % 02/10/22 19:58 Triglycerides 178 mg/dL (2-149) H 02/10/22 19:58 Cholesterol 130 mg/dL (50-199) 02/10/22 19:58 LDL Cholesterol Direct 50 mg/dL (50-130) 02/10/22 19:58 HDL Cholesterol 36 mg/dL (40-59) L 02/10/22 19:58 Cholesterol/HDL Ratio 3.61 % 02/10/22 19:58 Urine Color Yellow (Yellow) 02/10/22 Unknown Urine Turbidity Clear (Clear) 02/10/22 Unknown Specific [place] (Man) 1.020 (1.003-1.030) 02/10/22 Unknown Ur Protein (Man) 2+ mg/dL (Negative) 02/10/22 Unknown Ur Ketones (Man) 5mg/dl (Negative) 02/10/22 Unknown Ur Nitrite (Man) Negative (Negative) 02/10/22 Unknown Urine Bilirubin (Man) Moderate (Negative) 02/10/22 Unknown Urine Ictotest Negative (Negative) 02/10/22 Unknown Leukocyte Esterase (Man) Negative (Negative) 02/10/22 Unknown Urine WBC (Auto) 7.0 /HPF (0.0-6.0) H 02/10/22 Unknown Urine RBC (Auto) 2.0 /HPF (0.0-6.0) 02/10/22 Unknown U Epithel Cells (Auto) 5.0 /HPF (0-13.0) 02/10/22 Unknown Urine Bacteria (Auto) 3+ /HPF (Negative) 02/10/22 Unknown Urine RBC (Manual) 5+ (Negative) 02/10/22 Unknown Urine Mucus Few /HPF 02/10/22 Unknown Urine Yeast ([place]) 2+ /HPF 02/10/22 Unknown Coronavirus (PCR) Positive (Negative) A 02/11/22 08:49 Microbiology: Microbiology 02/10/22 21:39 Urine,Clean Catch Urine Culture - Preliminary Enterococcus Species 02/10/22 19:58 Peripheral/Venous Blood Culture - Preliminary NO GROWTH AFTER 24 HOURS 02/10/22 19:58 Peripheral/Venous Blood Culture - Preliminary NO GROWTH AFTER 24 HOURS [place]/IV: Voiding Method Incontinent Active Medications - Current Medications Current Medications: Generic Name Dose Route Start Last Admin Trade Name Freq PRN Reason Stop Dose Admin Acetaminophen 650 mg 02/10/22 22:29 Acetaminophen 325 Mg Tab PO Q4H PRN Pain MILD(1-3)/Fever >100.5/BONNER Aspirin 81 mg 02/12/22 10:00 02/12/22 10:38 Aspirin 81 Mg Tab Chew PO Not Given QDAY MARTINEZ Atorvastatin Calcium 20 mg 02/11/22 22:00 02/11/22 21:35 Atorvastatin 20 Mg Tab PO 20 mg QHS MARTINEZ Administration Darunavir 800 mg 02/11/22 18:00 02/12/22 10:38 Darunavir 800 Mg Tab PO Not Given QDAY MARTINEZ Emtricitabine 200 mg 02/11/22 18:00 02/12/22 10:38 Emtricitabine 200 Mg Cap PO Not Given QDAY MARTINEZ Heparin Sodium (Porcine) 5,000 unit 02/11/22 06:00 02/12/22 06:01 Heparin 5,000 Unit/1 Ml Vial SUB-Q 5,000 unit Q8HR MARTINEZ Administration Hydrochlorothiazide 25 mg 02/11/22 18:00 02/12/22 10:38 Hydrochlorothiazide 25 Mg Tab PO Not Given QDAY MARTINEZ Cefepime HCl 2 gm in 100 mls @ 200 mls/hr 02/11/22 10:00 02/11/22 22:55 Cefepime/Ns 2 Gm/100 Ml IV 02/14/22 09:59 200 mls/hr Q12H MARTINEZ Administration Protocol Dextrose/Sodium Chloride 1,000 mls @ 75 mls/hr 02/11/22 22:00 02/11/22 22:56 D5/0.45ns IV 75 mls/hr DIRECT MARTINEZ Administration Potassium Chloride 10 meq in 100 mls @ 100 mls/hr 02/12/22 09:30 02/12/22 11:47 Kcl 10meq/100ml IV 02/12/22 13:29 100 mls/hr Q1H MARTINEZ Administration Potassium Chloride 10 meq in 100 mls @ 100 mls/hr 02/12/22 14:00 Kcl 10meq/100ml IV 02/12/22 17:59 Q1H MARTINEZ Levetiracetam 1,000 mg 02/11/22 18:00 02/12/22 10:38 Levetiracetam 500 Mg Tab PO Not Given QDAY MARTINEZ Magnesium Hydroxide 30 ml 02/10/22 22:29 Magnesium Hydroxide (Mom) Oral Liqd Udc PO Q4H PRN Constipation Morphine Sulfate 2 mg 02/10/22 22:29 02/11/22 04:23 Morphine 2 Mg/1 Ml Inj IV 2 mg Q4H PRN Administration Pain, Moderate (4-6) Morphine Sulfate 4 mg 02/10/22 22:29 Morphine 4 Mg/1 Ml Inj IV Q4H PRN Pain , Severe (7-10) Ondansetron HCl 4 mg 02/10/22 22:29 Ondansetron 4 Mg/2 Ml Inj IV Q8H PRN Nausea And Vomiting Ritonavir 100 mg 02/11/22 18:00 02/12/22 10:38 Ritonavir 100 Mg Tab PO Not Given QDAY MARTINEZ Sodium Chloride 10 ml 02/11/22 10:00 02/11/22 21:35 Sodium Chloride 0.9% 10 Ml Flush Syringe IV 10 ml BID MARTINEZ Administration Sodium Chloride 10 ml 02/10/22 22:29 Sodium Chloride 0.9% 10 Ml Flush Syringe IV PRN PRN LINE FLUSH Tenofovir Disoproxil Fumarate 300 mg 02/11/22 18:00 02/12/22 10:39 Tenofovir 300 Mg Tab PO Not Given QDAY MARTINEZ Nutrition/Malnutrition Assess - Dietary Evaluation Nutrition/Malnutrition Findings: Nutrition Notes Start: 02/11/22 14:09 Freq: Status: Active Protocol: Document 02/12/22 11:09 CM (Rec: 02/12/22 11:21 CM [id number]) Co-Sign 02/12/22 11:09 WW Nutrition Notes Need for Assessment generated from: MD Order Initial or Follow up Brief Note Current Diagnosis Acute Kidney Injury,Sepsis Other Pertinent Diagnosis AMS, HIV, COVID-19 Current Diet Renal Diet Labs/Tests 02/12: K 2.7 BUN 76 Cr 1.4 Mg 2.5 Ca 10.6 Pertinent Medications 02/12: Atorvastatin Hydrochlorothiazide Height 5 ft Weight 63 kg [place] Body Weight (kg) 45.45 BMI 27.1 Intake Prior to Admission Poor Weight change and time frame 14-23lb unintentional wt loss prior to admission per malnutrition screening tool assessment. Weight Status Overweight Subjective/Other Information RD consult for malnutrition per MD. Pt currently COVID-19+ per RN. Appetite changes, bilaterally weak plasterer maintenance strength per physical assessment. No %PO intake per ADL notes. Pt refused eating/drinking per RN. MD notified by RN. Unable to perform nutrition- focused physical assessment at this time. Attempted to call pt and mother - no answer. Percent of energy/protein needs met: Renal Diet provides 2072kcal / 77g PRO q day (109% / 101%) Current % PO Negligible Minimum of two criteria No #1 Nutrition Diagnosis Altered nutrition-related laboratory values Diagnosis Progress(for reassessment Continues documentation) Nutrition Intervention Change Diet Order: Continue current diet order Goal #1 Pt to consume >75% of estimated energy/protein needs through current diet order Goal #2 Pt to maintain current wt status within 2.5% during LOS Follow-Up By: 02/14/22 Additional Comments Monitor %PO intake, nutrition- related labs, and wt status.
[2022-02-12 13:09] LABS: BUN/Creatinine Ratio 63; Blood Urea Nitrogen 63 mg/dL (7-17); Calcium 10.4 mg/dL (8.4-10.2); Hemolysis Index 115
[2022-02-13] MEDS: D5W/0.45% NACL 1,000 ML IV SCH ×2 (03:04→15:50)
[2022-02-13 05:27] LABS: Hematocrit 24.6 % (30.3-42.9); Hemoglobin 7.9 gm/dl (10.1-14.3); Mean Corpuscular HGB Conc 32 % (30-34); Mean Corpuscular Volume 92 fl (79-97); Platelet Count 336 K/mm3 (140-440); Red Blood Count 2.68 M/mm3 (3.65-5.03); Red Cell Distribution Width 15.5 % (13.2-15.2)
[2022-02-13 05:44] LABS: BUN/Creatinine Ratio 57; Blood Urea Nitrogen 51 mg/dL (7-17); Calcium 10.4 mg/dL (8.4-10.2); Hemolysis Index 28
[2022-02-13] MEDS: HEPARIN 5,000 UNIT/1 ML VIAL SUB-Q SCH ×3 (06:09→21:04)
[2022-02-13 06:25] LABS: Basophils % (Manual) 0 % (0.0-1.8); Eosinophils % (Manual) 0 % (0.0-4.3); Platelet Estimate Consistent w Auto; Total Cells Counted 100
--- NOTE | 2022-02-13 10:08 | Progress Note ---
Assessment and Plan Cultures: Blood culture 02/10/2022 no growth so far A/P: 41-year-old female past medical history HIV now with: #Acute sepsis: Present with fevers, leukocytosis. Secondary to possible UTI. #Pyuria: With altered mental status, unable to assess for dysuria. Awaiting urine cultures. #Acute encephalopathy: Possibly secondary to UTI #HIV: Noted she is on Truvada, Prezcobix. Continue. #LEAH: Improving #Penicillin allergy: Tolerating cefepime Recs: -Continue cefepime for now. Plan 3 days -Follow-up blood, urine cultures -CD4, viral load ordered by primary team, follow-up results. -Continue Truvada, Prezcobix Thank you for the consult, we will sign off. Please call questions. Dahlia Lucas MD [facility] ([facility]) O: [phone] F: [phone] Subjective Date of service: 02/13/22 Interval history: Remains afebrile, white count 7.3. Objective - Exam Narrative Exam: Physical Exam: Constitutional: Awake, confused Head, Ears, Nose: Normocephalic, atraumatic. External ears, nose normal Eyes: Conjunctivae/corneas clear. No icterus. No ptosis. Neck: Supple, no meningeal signs Oral: dentition fair, no thrush Cardiovascular: S1, S2 normal. Respiratory: Good air entry, clear to auscultation bilaterally GI: Soft, non-tender; bowel sounds normal. No peritoneal signs. Musculoskeletal: No pedal edema, no cyanosis. Skin: No rash or abscess Hem/Lymphatic: No palpable cervical or supraclavicular nodes. No lymphangitis Psych: Confused Neurological: Awake, confused - Constitutional Vitals: Vital Signs Temp Pulse Resp BP Pulse Ox 97.5 F L 106 H 17 138/87 100 02/12/22 21:51 02/12/22 21:51 02/12/22 22:00 02/12/22 21:51 02/12/22 22:00 Temperature -Last 24 Hours Temperature 97.5 F Temperature 98.2 F Temperature 97.5 F - Labs CBC & Chem 7: 02/13/22 04:17 02/13/22 04:17 Labs: Abnormal lab results 09/02/13/22 02/13/22 Range/Units 12:52 04:17 04:17 RBC 2.68 L (3.65-5.03) M/mm3 Hgb 7.9 L (10.1-14.3) gm/dl Hct 24.6 L D (30.3-42.9) % RDW 15.5 H (13.2-15.2) % Seg Neuts % (Manual) 95.0 H (40.0-70.0) % Lymphocytes % (Manual) 2.0 L (13.4-35.0) % Lymphocytes # (Manual) 0.1 L (1.2-5.4) K/mm3 Sodium 146 H 147 H (137-145) mmol/L Potassium 3.1 L (3.6-5.0) mmol/L Chloride 112.4 H 116.1 H (98-107) mmol/L Carbon Dioxide 20 L 21 L (22-30) mmol/L BUN 63 H 51 H (7-17) mg/dL Calcium 10.4 H 10.4 H (8.4-10.2) mg/dL
[2022-02-13] MEDS: DARUNAVIR 800 MG TAB PO SCH (10:52)
[2022-02-13] MEDS: TENOFOVIR 300 MG TAB PO SCH (10:52)
[2022-02-13] MEDS: RITONAVIR 100 MG TAB PO SCH (10:52)
[2022-02-13] MEDS: ASPIRIN 81 MG TAB CHEW PO SCH (10:52)
[2022-02-13] MEDS: EMTRICITABINE 200 MG CAP PO SCH (10:52)
[2022-02-13] MEDS: hydroCHLOROthiazide 25 MG TAB PO SCH (10:52)
[2022-02-13] MEDS: levETIRAcetam 500 MG TAB PO SCH (10:53)
[2022-02-13] MEDS: CEFEPIME/NS 2 GM/100 ML 2 GM/100 ML BAG IV SCH ×2 (10:53→21:04)
--- NOTE | 2022-02-13 11:40 | Progress Note ---
Assessment and Plan Assessment and plan: #Sepsis secondary to Enterococcus UTI/cystitis #Left axilla wound, chronic -T-max 101.5, patient reported fevers at custodial -Chest x-ray reviewed and UA with pyuria; urine culture pending -Blood cultures collected; coronavirus PCR also ordered -Vancomycin discontinued. Continue cefepime (completes on 02/14/2022) -Will order wound care for left axillary wound -Infectious disease consulted, assistance appreciated #Acute toxic metabolic encephalopathy -Unsure of patient's baseline, she is responsive to her name but unable to provide history -We will continue to monitor #Severe hypokalemiaresolved #Hypomagnesemia-resolved -K 2.7-> 2.9-->2.8--> 3.7 -Continue aggressive potassium repletion. -magnesium repleted #HIV -CD4 count unknown -Records reviewed from [facility], patient taking ARV -Continue prezista, ritonavir, emtricitabine/tenofovir at home doses -CD4 count collected -ID following, assistance appreciated #moderate calorie malnutrition #poor PO intake -Nutrition consult -if patient continues to have poor intake, may need PEG tube prior to discharge #Seizure disorder -Continue Keppra 1 g daily #Discharge planning -Patient a resident at [facility]. Next of kin contacted (mother Neetu Enamorado [phone]) voicemail left. Plan to discharge back to custodial once clinically stable Social: Multiple attempts at the need trying to contact patient's/mother and were unsuccessful. We will continue to follow the patient's mother but we will consider notifying the police for a welfare check. Disposition Plan: Continue medical management Total Time Spent with Patient (Minutes): 45 min History Interval history: No acute events overnight. Hospitalist Physical - Constitutional Vitals: Temp Pulse Resp BP Pulse Ox 97.5 F L 106 H 17 138/87 100 02/12/22 21:51 02/12/22 21:51 02/12/22 22:00 02/12/22 21:51 02/12/22 22:00 General appearance: Present: no acute distress, cachectic, disheveled - EENT Eyes: Present: PERRL, EOM intact ENT: hearing intact, poor dentition, edentulous - Neck Neck: Present: supple, normal ROM - Respiratory Respiratory effort: normal Respiratory: bilateral: diminished - Cardiovascular Heart rate: 106 Rhythm: regular Heart Sounds: Present: S1 & S2 - Extremities Extremities: no ischemia, pulses intact, pulses symmetrical, normal temperature, normal color Peripheral Pulses: within normal limits - Abdominal General gastrointestinal: soft, non-tender, non-distended, normal bowel sounds - Integumentary Integumentary: Present: clear, warm, dry - Psychiatric Psychiatric: agitated, depressed - Neurologic Neurologic: CNII-XII intact - Allied Health Allied health notes reviewed: nursing, social work HEART Score - HEART Score Troponin: Troponin T 0.276 ng/mL (0.00-0.029) H* 02/12/22 04:41 Results - Labs CBC & Chem 7: 02/13/22 04:17 02/13/22 04:17 Labs: Laboratory Last Values WBC 7.3 K/mm3 (4.5-11.0) 02/13/22 04:17 RBC 2.68 M/mm3 (3.65-5.03) L 02/13/22 04:17 Hgb 7.9 gm/dl (10.1-14.3) L 02/13/22 04:17 Hct 24.6 % (30.3-42.9) L D 02/13/22 04:17 MCV 92 fl (79-97) 02/13/22 04:17 MCH 30 pg (28-32) 02/13/22 04:17 MCHC 32 % (30-34) 02/13/22 04:17 RDW 15.5 % (13.2-15.2) H 02/13/22 04:17 Plt Count 336 K/mm3 (140-440) 02/13/22 04:17 Lymph % (Auto) 4.2 % (13.4-35.0) L 02/10/22 19:58 [place] % (Auto) 8.4 % (0.0-7.3) H 02/10/22 19:58 Eos % (Auto) 0.0 % (0.0-4.3) 02/10/22 19:58 Baso % (Auto) 0.1 % (0.0-1.8) 02/10/22 19:58 Lymph # (Auto) 0.5 K/mm3 (1.2-5.4) L 02/10/22 19:58 [place] # (Auto) 1.0 K/mm3 (0.0-0.8) H 02/10/22 19:58 Eos # (Auto) 0.0 K/mm3 (0.0-0.4) 02/10/22 19:58 Baso # (Auto) 0.0 K/mm3 (0.0-0.1) 02/10/22 19:58 Add Manual Diff Complete 02/13/22 04:17 Total Counted 100 02/13/22 04:17 Seg Neutrophils % Pretzel Twister 02/13/22 04:17 Seg Neuts % (Manual) 95.0 % (40.0-70.0) H 02/13/22 04:17 Band Neutrophils % 0 % 02/13/22 04:17 Lymphocytes % (Manual) 2.0 % (13.4-35.0) L 02/13/22 04:17 Reactive Lymphs % (Man) 0 % 02/13/22 04:17 Monocytes % (Manual) 3.0 % (0.0-7.3) 02/13/22 04:17 Eosinophils % (Manual) 0 % (0.0-4.3) 02/13/22 04:17 Basophils % (Manual) 0 % (0.0-1.8) 02/13/22 04:17 Metamyelocytes % 0 % 02/13/22 04:17 Myelocytes % 0 % 02/13/22 04:17 Promyelocytes % 0 % 02/13/22 04:17 Blast Cells % 0 % 02/13/22 04:17 Nucleated RBC % Not Reportable 02/13/22 04:17 Seg Neutrophils # 10.0 K/mm3 (1.8-7.7) H 02/10/22 19:58 Seg Neutrophils # Man 6.9 K/mm3 (1.8-7.7) 02/13/22 04:17 Band Neutrophils # 0.0 K/mm3 02/13/22 04:17 Lymphocytes # (Manual) 0.1 K/mm3 (1.2-5.4) L 02/13/22 04:17 Abs React Lymphs (Man) 0.0 K/mm3 02/13/22 04:17 Monocytes # (Manual) 0.2 K/mm3 (0.0-0.8) 02/13/22 04:17 Eosinophils # (Manual) 0.0 K/mm3 (0.0-0.4) 02/13/22 04:17 Basophils # (Manual) 0.0 K/mm3 (0.0-0.1) 02/13/22 04:17 Metamyelocytes # 0.0 K/mm3 02/13/22 04:17 Myelocytes # 0.0 K/mm3 02/13/22 04:17 Promyelocytes # 0.0 K/mm3 02/13/22 04:17 Blast Cells # 0.0 K/mm3 02/13/22 04:17 WBC Morphology Not Reportable 02/13/22 04:17 Hypersegmented Neuts Not Reportable 02/13/22 04:17 Hyposegmented Neuts Not Reportable 02/13/22 04:17 Hypogranular Neuts Not Reportable 02/13/22 04:17 Smudge Cells Not Reportable 02/13/22 04:17 Toxic Granulation Not Reportable 02/13/22 04:17 Toxic Vacuolation Not Reportable 02/13/22 04:17 Dohle Bodies Not Reportable 02/13/22 04:17 Pelger-Huet Anomaly Not Reportable 02/13/22 04:17 April Rods Not Reportable 02/13/22 04:17 Platelet Estimate Consistent w auto 02/13/22 04:17 Clumped Platelets Not Reportable 02/13/22 04:17 Plt Clumps, EDTA Not Reportable 02/13/22 04:17 Large Platelets Not Reportable 02/13/22 04:17 Giant Platelets Not Reportable 02/13/22 04:17 Platelet Satelliting Not Reportable 02/13/22 04:17 Plt Morphology Comment Not Reportable 02/13/22 04:17 RBC Morphology Not Reportable 02/13/22 04:17 Dimorphic RBCs Not Reportable 02/13/22 04:17 Polychromasia Not Reportable 02/13/22 04:17 Hypochromasia Not Reportable 02/13/22 04:17 Poikilocytosis Not Reportable 02/13/22 04:17 Anisocytosis Not Reportable 02/13/22 04:17 Microcytosis Not Reportable 02/13/22 04:17 Macrocytosis Not Reportable 02/13/22 04:17 Spherocytes Not Reportable 02/13/22 04:17 Pappenheimer Bodies Not Reportable 02/13/22 04:17 Sickle Cells Not Reportable 02/13/22 04:17 Target Cells Not Reportable 02/13/22 04:17 Tear Drop Cells Not Reportable 02/13/22 04:17 Ovalocytes Not Reportable 02/13/22 04:17 Helmet Cells Not Reportable 02/13/22 04:17 [place] Bodies Not Reportable 02/13/22 04:17 [place] Rings Not Reportable 02/13/22 04:17 [place] Cells Not Reportable 02/13/22 04:17 Bite Cells Not Reportable 02/13/22 04:17 Crenated Cell Not Reportable 02/13/22 04:17 Elliptocytes Not Reportable 02/13/22 04:17 Acanthocytes (Spur) Not Reportable 02/13/22 04:17 Rouleaux Not Reportable 02/13/22 04:17 Hemoglobin C Crystals Not Reportable 02/13/22 04:17 Schistocytes Not Reportable 02/13/22 04:17 Malaria parasites Not Reportable 02/13/22 04:17 Flo Bodies Not Reportable 02/13/22 04:17 Hem Pathologist Commnt No 02/13/22 04:17 PT 15.7 Sec. (12.2-14.9) H 02/10/22 19:58 INR 1.12 (0.87-1.13) 02/10/22 19:58 VBG pH 7.483 (7.320-7.420) H 02/10/22 19:58 Sodium 147 mmol/L (137-145) H 02/13/22 04:17 Potassium 3.7 mmol/L (3.6-5.0) 02/13/22 04:17 Chloride 116.1 mmol/L (98-107) H 02/13/22 04:17 Carbon Dioxide 21 mmol/L (22-30) L 02/13/22 04:17 Anion Gap 14 mmol/L 02/13/22 04:17 BUN 51 mg/dL (7-17) H 02/13/22 04:17 Creatinine 0.9 mg/dL (0.6-1.2) 02/13/22 04:17 Estimated GFR > 60 ml/min 02/13/22 04:17 BUN/Creatinine Ratio 57 % 02/13/22 04:17 Glucose 84 mg/dL (65-100) 02/13/22 04:17 POC Glucose 100 mg/dL (70-105) 02/13/22 05:59 Lactic Acid 0.90 mmol/L (0.7-2.0) 02/11/22 01:54 Calcium 10.4 mg/dL (8.4-10.2) H 02/13/22 04:17 Magnesium 2.50 mg/dL (1.7-2.3) H 02/11/22 07:58 Total Bilirubin 0.60 mg/dL (0.1-1.2) 02/10/22 19:58 AST 34 units/L (5-40) 02/10/22 19:58 ALT 12 units/L (7-56) 02/10/22 19:58 Alkaline Phosphatase 102 units/L (35-129) 02/10/22 19:58 Total Creatine Kinase 469 units/L (30-135) H 02/10/22 19:58 Troponin T 0.276 ng/mL (0.00-0.029) H* 02/12/22 04:41 Total Protein 8.9 g/dL (6.3-8.2) H 02/10/22 19:58 Albumin 3.2 g/dL (3.9-5) L 02/10/22 19:58 Albumin/Globulin Ratio 0.6 % 02/10/22 19:58 Triglycerides 178 mg/dL (2-149) H 02/10/22 19:58 Cholesterol 130 mg/dL (50-199) 02/10/22 19:58 LDL Cholesterol Direct 50 mg/dL (50-130) 02/10/22 19:58 HDL Cholesterol 36 mg/dL (40-59) L 02/10/22 19:58 Cholesterol/HDL Ratio 3.61 % 02/10/22 19:58 Urine Color Yellow (Yellow) 02/10/22 Unknown Urine Turbidity Clear (Clear) 02/10/22 Unknown Specific [place] (Man) 1.020 (1.003-1.030) 02/10/22 Unknown Ur Protein (Man) 2+ mg/dL (Negative) 02/10/22 Unknown Ur Ketones (Man) 5mg/dl (Negative) 02/10/22 Unknown Ur Nitrite (Man) Negative (Negative) 02/10/22 Unknown Urine Bilirubin (Man) Moderate (Negative) 02/10/22 Unknown Urine Ictotest Negative (Negative) 02/10/22 Unknown Leukocyte Esterase (Man) Negative (Negative) 02/10/22 Unknown Urine WBC (Auto) 7.0 /HPF (0.0-6.0) H 02/10/22 Unknown Urine RBC (Auto) 2.0 /HPF (0.0-6.0) 02/10/22 Unknown U Epithel Cells (Auto) 5.0 /HPF (0-13.0) 02/10/22 Unknown Urine Bacteria (Auto) 3+ /HPF (Negative) 02/10/22 Unknown Urine RBC (Manual) 5+ (Negative) 02/10/22 Unknown Urine Mucus Few /HPF 02/10/22 Unknown Urine Yeast (Budding) 2+ /HPF 02/10/22 Unknown Coronavirus (PCR) Positive (Negative) A 02/11/22 08:49 Microbiology: Microbiology 02/10/22 19:58 Peripheral/Venous Blood Culture - Preliminary NO GROWTH AFTER 48 HOURS 02/10/22 19:58 Peripheral/Venous Blood Culture - Preliminary NO GROWTH AFTER 48 HOURS 02/10/22 21:39 Urine,Clean Catch Urine Culture - Preliminary Enterococcus Species Bunn/IV: Voiding Method Incontinent Active Medications - Current Medications Current Medications: Generic Name Dose Route Start Last Admin Trade Name Freq PRN Reason Stop Dose Admin Acetaminophen 650 mg 02/10/22 22:29 Acetaminophen 325 Mg Tab PO Q4H PRN Pain MILD(1-3)/Fever >100.5/BONNER Aspirin 81 mg 02/12/22 10:00 02/13/22 10:52 Aspirin 81 Mg Tab Chew PO 81 mg QDAY MARTINEZ Administration Atorvastatin Calcium 20 mg 02/11/22 22:00 02/12/22 21:42 Atorvastatin 20 Mg Tab PO 20 mg QHS MARTINEZ Administration Darunavir 800 mg 02/11/22 18:00 02/13/22 10:52 Darunavir 800 Mg Tab PO 800 mg QDAY MARTINEZ Administration Emtricitabine 200 mg 02/11/22 18:00 02/13/22 10:52 Emtricitabine 200 Mg Cap PO 200 mg QDAY MARTINEZ Administration Heparin Sodium (Porcine) 5,000 unit 02/11/22 06:00 02/13/22 06:09 Heparin 5,000 Unit/1 Ml Vial SUB-Q 5,000 unit Q8HR MARTINEZ Administration Hydrochlorothiazide 25 mg 02/11/22 18:00 02/13/22 10:52 Hydrochlorothiazide 25 Mg Tab PO 25 mg QDAY MARTINEZ Administration Cefepime HCl 2 gm in 100 mls @ 200 mls/hr 02/11/22 10:00 02/13/22 10:53 Cefepime/Ns 2 Gm/100 Ml IV 02/14/22 09:59 200 mls/hr Q12H MARTINEZ Administration Protocol Dextrose/Sodium Chloride 1,000 mls @ 75 mls/hr 02/11/22 22:00 02/13/22 03:04 D5/0.45ns IV 75 mls/hr DIRECT MARTINEZ Administration Levetiracetam 1,000 mg 02/11/22 18:00 02/13/22 10:53 Levetiracetam 500 Mg Tab PO 1,000 mg QDAY MARTINEZ Administration Magnesium Hydroxide 30 ml 02/10/22 22:29 Magnesium Hydroxide (Mom) Oral Liqd Udc PO Q4H PRN Constipation Morphine Sulfate 2 mg 02/10/22 22:29 02/11/22 04:23 Morphine 2 Mg/1 Ml Inj IV 2 mg Q4H PRN Administration Pain, Moderate (4-6) Morphine Sulfate 4 mg 02/10/22 22:29 Morphine 4 Mg/1 Ml Inj IV Q4H PRN Pain , Severe (7-10) Ondansetron HCl 4 mg 02/10/22 22:29 Ondansetron 4 Mg/2 Ml Inj IV Q8H PRN Nausea And Vomiting Ritonavir 100 mg 02/11/22 18:00 02/13/22 10:52 Ritonavir 100 Mg Tab PO 100 mg QDAY MARTINEZ Administration Sodium Chloride 10 ml 02/11/22 10:00 02/13/22 10:53 Sodium Chloride 0.9% 10 Ml Flush Syringe IV 10 ml BID MARTINEZ Administration Sodium Chloride 10 ml 02/10/22 22:29 Sodium Chloride 0.9% 10 Ml Flush Syringe IV PRN PRN LINE FLUSH Tenofovir Disoproxil Fumarate 300 mg 02/11/22 18:00 02/13/22 10:52 Tenofovir 300 Mg Tab PO 300 mg QDAY MARTINEZ Administration Nutrition/Malnutrition Assess - Dietary Evaluation Nutrition/Malnutrition Findings: Nutrition Notes Start: 02/11/22 14:09 Freq: Status: Active Protocol: Document 02/13/22 08:28 CM (Rec: 02/13/22 08:39 CM [id number]) Co-Sign 02/13/22 08:28 WW Nutrition Notes Need for Assessment generated from: MD Order Initial or Follow up Assessment Current Diagnosis Sepsis,Malnutrition Other Pertinent Diagnosis AMS, HIV, Seizure Current Diet Pureed Diet Labs/Tests 02/13: Na 147 Cl 116.1 CO2 21 BUN 51 Pertinent Medications 02/13: Atorvastatin Hydrochlorothiazide Height 5 ft Weight 63 kg [place] Body Weight (kg) 45.45 BMI 27.1 Intake Prior to Admission Poor Weight change and time frame 14-23lb unintentional wt loss prior to admission per malnutrition screening tool assessment. Weight Status Overweight Subjective/Other Information RD consult for write/manage tube feed. Diet modified to pureed 02/12. Potential PEG placement prior to d/c per MD. No NG tube/PEG placed at this time. No diet % per ADL notes. Appetite changes / swallowing impaired, abdomen soft, flat, BS+ per physical assessment. Weight remains stable per EMR. Tube feed recommendations below when medically necessary . Percent of energy/protein needs met: Pureed Diet provides 1804kcal/ 77g PRO q day (92%/101%) Burn Absent Trauma Absent GI Symptoms None Difficulty In Swallowing Food Allergy No Skin Integrity/Comment Sukhwinder 14 - Area of concern Current % PO Negligible Minimum of two criteria No #1 Diagnosis Progress(for reassessment Continues documentation) Is patient on ventilator? No Is Patient Ambulatory and/or Out of Bed No REE-([facility]-confined to bed) 1462.980 Kcal/Kg value to use for calculation 31 Approximate Energy Requirements Using 1953 kcal/Kg Calculation Used for Recommendations Kcal/kg Additional Notes Protein: 1.0-1.2g/kg ABW; 63- 76g PRO q day Fluids: 1mL/kcal or per MD Nutrition Intervention Change Diet Order: Continue current diet as tolerable. Nutrition Support: Once NG or PEG tube placed, recommend initiating Osmolite 1.5 @ 20mL/hr and increasing by 10mL q 8hr to goal rate of 50mL/hr. Flush with 150mL q 4hr or per MD. Kcal 1,800 Protein (gm) 75 % RDI: 93%kcal/100%AA Goal #1 Pt to consume >75% of estimated energy/protein needs through current diet order Goal #2 Pt to maintain current wt status within 2.5% during LOS Follow-Up By: 02/15/22 Additional Comments Monitor %PO intake, nutrition- related labs, and wt status.
--- NOTE | 2022-02-13 14:15 | Electrocardiograph Report ---
[facility] Test Date: 2022-02-10 Test Time: 21:07:54 Pat Name: ANIA ESPINOZA Department: Room: A352 Gender: F Special Education Coordinator: ANU : 1980 Requested By: BETHANIE ONEIL Order Number: [id number] Reading MD: Leida Ward Measurements Intervals [place] Rate: 119 P: 4 [place]: 53 QRS: 43 QRSD: 107 T: 23 QT: 424 QTc: 597 Interpretive Statements Sinus tachycardia Nonspecific ST segment changes Prolonged QT interval No previous ECG available for comparison Electronically Signed On 02-13-2022 14:15:42 EDT by Leida Ward
[2022-02-13 14:49] LABS: CD4/CD8 Ratio 0.24 (0.86-5.00)
[2022-02-14] MEDS ORDERED: TEMAZEPAM 15 MG CAP PO PRN (03:08)
[2022-02-14] MEDS: HEPARIN 5,000 UNIT/1 ML VIAL SUB-Q SCH ×3 (05:31→21:17)
[2022-02-14 08:19] LABS: BUN/Creatinine Ratio 52; Blood Urea Nitrogen 47 mg/dL (7-17); Calcium 10.6 mg/dL (8.4-10.2); Hemolysis Index 0
[2022-02-14] MEDS: hydroCHLOROthiazide 25 MG TAB PO SCH (11:29)
[2022-02-14] MEDS: levETIRAcetam 500 MG TAB PO SCH (11:29)
[2022-02-14] MEDS: DARUNAVIR 800 MG TAB PO SCH (11:30)
[2022-02-14] MEDS: TENOFOVIR 300 MG TAB PO SCH (11:30)
[2022-02-14] MEDS: ASPIRIN 81 MG TAB CHEW PO SCH (11:30)
[2022-02-14] MEDS: RITONAVIR 100 MG TAB PO SCH (11:30)
[2022-02-14] MEDS: EMTRICITABINE 200 MG CAP PO SCH (11:30)
[2022-02-14] MEDS ORDERED: POTASSIUM CHLORIDE 20 MEQ 20 MEQ/100 ML BAG IV SCH (14:00)
--- NOTE | 2022-02-14 17:40 | Progress Note ---
Assessment and Plan Assessment and plan: #Sepsis secondary to Enterococcus UTI/cystitis #Left axilla wound, chronic -T-max 101.5, patient reported fevers at skilled nursing -Chest x-ray reviewed and UA with pyuria; urine culture pending -Blood cultures collected; coronavirus PCR also ordered -Vancomycin discontinued. Continue cefepime (completes on 02/14/2022) -Will order wound care for left axillary wound -Infectious disease consulted, assistance appreciated #Acute toxic metabolic encephalopathy -Unsure of patient's baseline, she is responsive to her name but unable to provide history -We will continue to monitor #Severe hypokalemia #Hypomagnesemia-resolved -K 2.7-> 2.9-->2.8--> 3.7--> 3.0 -Continue aggressive potassium repletion. -magnesium repleted #HIV -CD4 count unknown -Records reviewed from [place], patient taking ARV -Continue prezista, ritonavir, emtricitabine/tenofovir at home doses -CD4 count collected -ID following, assistance appreciated #moderate calorie malnutrition #poor PO intake -Nutrition consult -if patient continues to have poor intake, may need PEG tube prior to discharge #Seizure disorder -Continue Keppra 1 g daily #Discharge planning -Patient a resident at [facility]. Next of kin contacted (mother Neetu Enamorado [phone]) voicemail left. Plan to discharge back to skilled nursing once clinically stable Social: Multiple attempts at the need trying to contact patient's/mother and were unsuccessful. We will continue to follow the patient's mother but we will consider notifying the police for a welfare check. Disposition Plan: Continue medical management Total Time Spent with Patient (Minutes): 45 minutes History Interval history: No acute events overnight. Hospitalist Physical - Constitutional Vitals: Temp Pulse Resp BP Pulse Ox 97.4 F L 100 H 16 99/72 96 02/14/22 05:04 02/14/22 05:04 02/14/22 05:04 02/14/22 05:04 02/14/22 05:04 General appearance: Present: no acute distress, cachectic, disheveled - EENT Eyes: Present: PERRL, EOM intact ENT: hearing intact, clear oral mucosa, poor dentition, edentulous - Neck Neck: Present: supple, normal ROM - Respiratory Respiratory effort: normal Respiratory: bilateral: diminished - Cardiovascular Rhythm: regular Heart Sounds: Present: S1 & S2 - Extremities Extremities: no ischemia, pulses intact, pulses symmetrical, No edema, normal temperature, normal color Peripheral Pulses: within normal limits - Abdominal General gastrointestinal: soft, non-tender, non-distended, normal bowel sounds - Integumentary Integumentary: Present: clear, warm, dry - Psychiatric Psychiatric: appropriate mood/affect, other - Neurologic Neurologic: CNII-XII intact, other (Alert and oriented x1) - Allied Health Allied health notes reviewed: nursing HEART Score - HEART Score Troponin: Troponin T 0.276 ng/mL (0.00-0.029) H* 02/12/22 04:41 Results - Labs CBC & Chem 7: 02/13/22 04:17 02/14/22 06:58 Labs: Laboratory Last Values WBC 7.3 K/mm3 (4.5-11.0) 02/13/22 04:17 RBC 2.68 M/mm3 (3.65-5.03) L 02/13/22 04:17 Hgb 7.9 gm/dl (10.1-14.3) L 02/13/22 04:17 Hct 24.6 % (30.3-42.9) L D 02/13/22 04:17 MCV 92 fl (79-97) 02/13/22 04:17 MCH 30 pg (28-32) 02/13/22 04:17 MCHC 32 % (30-34) 02/13/22 04:17 RDW 15.5 % (13.2-15.2) H 02/13/22 04:17 Plt Count 336 K/mm3 (140-440) 02/13/22 04:17 Lymph % (Auto) 4.2 % (13.4-35.0) L 02/10/22 19:58 Callahan % (Auto) 8.4 % (0.0-7.3) H 02/10/22 19:58 Eos % (Auto) 0.0 % (0.0-4.3) 02/10/22 19:58 Baso % (Auto) 0.1 % (0.0-1.8) 02/10/22 19:58 Lymph # (Auto) 0.5 K/mm3 (1.2-5.4) L 02/10/22 19:58 Callahan # (Auto) 1.0 K/mm3 (0.0-0.8) H 02/10/22 19:58 Eos # (Auto) 0.0 K/mm3 (0.0-0.4) 18 19:58 Baso # (Auto) 0.0 K/mm3 (0.0-0.1) 02/10/22 19:58 Add Manual Diff Complete 02/13/22 04:17 Total Counted 100 02/13/22 04:17 Seg Neutrophils % Metal Wire Technician 02/13/22 04:17 Seg Neuts % (Manual) 95.0 % (40.0-70.0) H 02/13/22 04:17 Band Neutrophils % 0 % 02/13/22 04:17 Lymphocytes % (Manual) 2.0 % (13.4-35.0) L 02/13/22 04:17 Reactive Lymphs % (Man) 0 % 02/13/22 04:17 Monocytes % (Manual) 3.0 % (0.0-7.3) 02/13/22 04:17 Eosinophils % (Manual) 0 % (0.0-4.3) 02/13/22 04:17 Basophils % (Manual) 0 % (0.0-1.8) 02/13/22 04:17 Metamyelocytes % 0 % 02/13/22 04:17 Myelocytes % 0 % 02/13/22 04:17 Promyelocytes % 0 % 02/13/22 04:17 Blast Cells % 0 % 02/13/22 04:17 Nucleated RBC % Not Reportable 02/13/22 04:17 Seg Neutrophils # 10.0 K/mm3 (1.8-7.7) H 02/10/22 19:58 Seg Neutrophils # Man 6.9 K/mm3 (1.8-7.7) 02/13/22 04:17 Band Neutrophils # 0.0 K/mm3 02/13/22 04:17 Abs Lymphs (Manual) 344 cells/uL (850-3900) L 02/11/22 08:08 Lymphocytes # (Manual) 0.1 K/mm3 (1.2-5.4) L 02/13/22 04:17 Abs React Lymphs (Man) 0.0 K/mm3 02/13/22 04:17 Monocytes # (Manual) 0.2 K/mm3 (0.0-0.8) 02/13/22 04:17 Eosinophils # (Manual) 0.0 K/mm3 (0.0-0.4) 02/13/22 04:17 Basophils # (Manual) 0.0 K/mm3 (0.0-0.1) 02/13/22 04:17 Metamyelocytes # 0.0 K/mm3 02/13/22 04:17 Myelocytes # 0.0 K/mm3 02/13/22 04:17 Promyelocytes # 0.0 K/mm3 02/13/22 04:17 Blast Cells # 0.0 K/mm3 02/13/22 04:17 WBC Morphology Not Reportable 02/13/22 04:17 Hypersegmented Neuts Not Reportable 02/13/22 04:17 Hyposegmented Neuts Not Reportable 02/13/22 04:17 Hypogranular Neuts Not Reportable 02/13/22 04:17 Smudge Cells Not Reportable 02/13/22 04:17 Toxic Granulation Not Reportable 02/13/22 04:17 Toxic Vacuolation Not Reportable 02/13/22 04:17 Dohle Bodies Not Reportable 02/13/22 04:17 Pelger-Huet Anomaly Not Reportable 02/13/22 04:17 April Rods Not Reportable 02/13/22 04:17 Platelet Estimate Consistent w auto 02/13/22 04:17 Clumped Platelets Not Reportable 02/13/22 04:17 Plt Clumps, EDTA Not Reportable 02/13/22 04:17 Large Platelets Not Reportable 02/13/22 04:17 Giant Platelets Not Reportable 02/13/22 04:17 Platelet Satelliting Not Reportable 02/13/22 04:17 Plt Morphology Comment Not Reportable 02/13/22 04:17 RBC Morphology Not Reportable 02/13/22 04:17 Dimorphic RBCs Not Reportable 02/13/22 04:17 Polychromasia Not Reportable 02/13/22 04:17 Hypochromasia Not Reportable 02/13/22 04:17 Poikilocytosis Not Reportable 02/13/22 04:17 Anisocytosis Not Reportable 02/13/22 04:17 Microcytosis Not Reportable 02/13/22 04:17 Macrocytosis Not Reportable 02/13/22 04:17 Spherocytes Not Reportable 02/13/22 04:17 Pappenheimer Bodies Not Reportable 02/13/22 04:17 Sickle Cells Not Reportable 02/13/22 04:17 Target Cells Not Reportable 02/13/22 04:17 Tear Drop Cells Not Reportable 02/13/22 04:17 Ovalocytes Not Reportable 02/13/22 04:17 Helmet Cells Not Reportable 02/13/22 04:17 [place] Bodies Not Reportable 02/13/22 04:17 [place] Rings Not Reportable 02/13/22 04:17 [place] Cells Not Reportable 02/13/22 04:17 Bite Cells Not Reportable 02/13/22 04:17 Crenated Cell Not Reportable 02/13/22 04:17 Elliptocytes Not Reportable 02/13/22 04:17 Acanthocytes (Spur) Not Reportable 02/13/22 04:17 Rouleaux Not Reportable 02/13/22 04:17 Hemoglobin C Crystals Not Reportable 02/13/22 04:17 Schistocytes Not Reportable 02/13/22 04:17 Malaria parasites Not Reportable 02/13/22 04:17 Flo Bodies Not Reportable 02/13/22 04:17 Hem Pathologist Commnt No 02/13/22 04:17 PT 15.7 Sec. (12.2-14.9) H 02/10/22 19:58 INR 1.12 (0.87-1.13) 02/10/22 19:58 VBG pH 7.483 (7.320-7.420) H 02/10/22 19:58 Sodium 145 mmol/L (137-145) 02/14/22 06:58 Potassium 3.0 mmol/L (3.6-5.0) L 02/14/22 06:58 Chloride 113.5 mmol/L (98-107) H 02/14/22 06:58 Carbon Dioxide 22 mmol/L (22-30) 02/14/22 06:58 Anion Gap 13 mmol/L 02/14/22 06:58 BUN 47 mg/dL (7-17) H 02/14/22 06:58 Creatinine 0.9 mg/dL (0.6-1.2) 02/14/22 06:58 Estimated GFR > 60 ml/min 02/14/22 06:58 BUN/Creatinine Ratio 52 % 02/14/22 06:58 Glucose 81 mg/dL (65-100) 02/14/22 06:58 POC Glucose 83 mg/dL (70-105) 02/14/22 10:51 Lactic Acid 0.90 mmol/L (0.7-2.0) 02/11/22 01:54 Calcium 10.6 mg/dL (8.4-10.2) H 02/14/22 06:58 Phosphorus 2.30 mg/dL (2.5-4.5) L 02/14/22 06:58 Magnesium 1.90 mg/dL (1.7-2.3) 02/14/22 06:58 Total Bilirubin 0.60 mg/dL (0.1-1.2) 02/10/22 19:58 AST 34 units/L (5-40) 02/10/22 19:58 ALT 12 units/L (7-56) 02/10/22 19:58 Alkaline Phosphatase 102 units/L (35-129) 02/10/22 19:58 Total Creatine Kinase 469 units/L (30-135) H 02/10/22 19:58 Troponin T 0.276 ng/mL (0.00-0.029) H* 02/12/22 04:41 Total Protein 8.9 g/dL (6.3-8.2) H 02/10/22 19:58 Albumin 3.2 g/dL (3.9-5) L 02/10/22 19:58 Albumin/Globulin Ratio 0.6 % 02/10/22 19:58 Triglycerides 178 mg/dL (2-149) H 02/10/22 19:58 Cholesterol 130 mg/dL (50-199) 02/10/22 19:58 LDL Cholesterol Direct 50 mg/dL (50-130) 02/10/22 19:58 HDL Cholesterol 36 mg/dL (40-59) L 02/10/22 19:58 Cholesterol/HDL Ratio 3.61 % 02/10/22 19:58 Urine Color Yellow (Yellow) 02/10/22 Unknown Urine Turbidity Clear (Clear) 02/10/22 Unknown Specific [place] (Man) 1.020 (1.003-1.030) 02/10/22 Unknown Ur Protein (Man) 2+ mg/dL (Negative) 02/10/22 Unknown Ur Ketones (Man) 5mg/dl (Negative) 02/10/22 Unknown Ur Nitrite (Man) Negative (Negative) 02/10/22 Unknown Urine Bilirubin (Man) Moderate (Negative) 02/10/22 Unknown Urine Ictotest Negative (Negative) 02/10/22 Unknown Leukocyte Esterase (Man) Negative (Negative) 02/10/22 Unknown Urine WBC (Auto) 7.0 /HPF (0.0-6.0) H 02/10/22 Unknown Urine RBC (Auto) 2.0 /HPF (0.0-6.0) 02/10/22 Unknown U Epithel Cells (Auto) 5.0 /HPF (0-13.0) 02/10/22 Unknown Urine Bacteria (Auto) 3+ /HPF (Negative) 02/10/22 Unknown Urine RBC (Manual) 5+ (Negative) 02/10/22 Unknown Urine Mucus Few /HPF 02/10/22 Unknown Urine Yeast (Budding) 2+ /HPF 02/10/22 Unknown Lymph Enumerat CD4/CD8 0.24 (0.86-5.00) L 02/11/22 08:08 % CD3 Cells 53 % (57-85) L 02/11/22 08:08 Absolute CD3 Count 184 cells/uL (840-3060) L 02/11/22 08:08 % CD4 Cells 10 % (30-61) L 02/11/22 08:08 Absolute CD4 Count 34 cells/uL (490-1740) L 02/11/22 08:08 % CD8 Cells 42 % (12-42) 02/11/22 08:08 Absolute CD8 Count 145 cells/uL (180-1170) L 02/11/22 08:08 % CD19 Cells 10 % (6-29) 02/11/22 08:08 Absolute CD19 Count 35 cells/uL (110-660) L 02/11/22 08:08 Coronavirus (PCR) Positive (Negative) A 02/11/22 08:49 Microbiology: Microbiology 02/10/22 21:39 Urine,Clean Catch Urine Culture - Preliminary Enterococcus Faecium 02/10/22 19:58 Peripheral/Venous Blood Culture - Preliminary NO GROWTH AFTER 72 HOURS 02/10/22 19:58 Peripheral/Venous Blood Culture - Preliminary NO GROWTH AFTER 72 HOURS Bunn/IV: Voiding Method Incontinent Active Medications - Current Medications Current Medications: Generic Name Dose Route Start Last Admin Trade Name Freq PRN Reason Stop Dose Admin Acetaminophen 650 mg 02/10/22 22:29 Acetaminophen 325 Mg Tab PO Q4H PRN Pain MILD(1-3)/Fever >100.5/BONNER Aspirin 81 mg 02/12/22 10:00 02/14/22 11:30 Aspirin 81 Mg Tab Chew PO 81 mg QDAY MARTINEZ Administration Atorvastatin Calcium 20 mg 02/11/22 22:00 02/13/22 21:04 Atorvastatin 20 Mg Tab PO 20 mg QHS MARTINEZ Administration Darunavir 800 mg 02/11/22 18:00 02/14/22 11:30 Darunavir 800 Mg Tab PO 800 mg QDAY MARTINEZ Administration Emtricitabine 200 mg 02/11/22 18:00 02/14/22 11:30 Emtricitabine 200 Mg Cap PO 200 mg QDAY MARTINEZ Administration Heparin Sodium (Porcine) 5,000 unit 02/11/22 06:00 02/14/22 13:11 Heparin 5,000 Unit/1 Ml Vial SUB-Q 5,000 unit Q8HR MARTINEZ Administration Hydrochlorothiazide 25 mg 02/11/22 18:00 02/14/22 11:29 Hydrochlorothiazide 25 Mg Tab PO 25 mg QDAY MARTINEZ Administration Dextrose/Sodium Chloride 1,000 mls @ 75 mls/hr 02/11/22 22:00 02/13/22 15:50 D5/0.45ns IV 75 mls/hr DIRECT MARTINEZ Administration Potassium Chloride 10 meq in 100 mls @ 100 mls/hr 02/14/22 14:00 Kcl 10meq/100ml IV 02/14/22 17:59 Q1H MARTINEZ Levetiracetam 1,000 mg 02/11/22 18:00 02/14/22 11:29 Levetiracetam 500 Mg Tab PO 1,000 mg QDAY MARTINEZ Administration Magnesium Hydroxide 30 ml 02/10/22 22:29 Magnesium Hydroxide (Mom) Oral Liqd Udc PO Q4H PRN Constipation Morphine Sulfate 2 mg 02/10/22 22:29 02/11/22 04:23 Morphine 2 Mg/1 Ml Inj IV 2 mg Q4H PRN Administration Pain, Moderate (4-6) Morphine Sulfate 4 mg 02/10/22 22:29 Morphine 4 Mg/1 Ml Inj IV Q4H PRN Pain , Severe (7-10) Ondansetron HCl 4 mg 02/10/22 22:29 Ondansetron 4 Mg/2 Ml Inj IV Q8H PRN Nausea And Vomiting Ritonavir 100 mg 02/11/22 18:00 02/14/22 11:30 Ritonavir 100 Mg Tab PO 100 mg QDAY MARTINEZ Administration Sodium Chloride 10 ml 02/11/22 10:00 02/14/22 11:31 Sodium Chloride 0.9% 10 Ml Flush Syringe IV 10 ml BID MARTINEZ Administration Sodium Chloride 10 ml 02/10/22 22:29 Sodium Chloride 0.9% 10 Ml Flush Syringe IV PRN PRN LINE FLUSH Tenofovir Disoproxil Fumarate 300 mg 02/11/22 18:00 02/14/22 11:30 Tenofovir 300 Mg Tab PO 300 mg QDAY MARTINEZ Administration Nutrition/Malnutrition Assess - Dietary Evaluation Nutrition/Malnutrition Findings: Nutrition Notes Start: 02/11/22 14:09 Freq: Status: Active Protocol: Document 02/13/22 08:28 CM (Rec: 02/13/22 08:39 CM [id number]) Co-Sign 02/13/22 08:28 WW Nutrition Notes Need for Assessment generated from: MD Order Initial or Follow up Assessment Current Diagnosis Sepsis,Malnutrition Other Pertinent Diagnosis AMS, HIV, Seizure Current Diet Pureed Diet Labs/Tests 02/13: Na 147 Cl 116.1 CO2 21 BUN 51 Pertinent Medications 02/13: Atorvastatin Hydrochlorothiazide Height 5 ft Weight 63 kg [place] Body Weight (kg) 45.45 BMI 27.1 Intake Prior to Admission Poor Weight change and time frame 14-23lb unintentional wt loss prior to admission per malnutrition screening tool assessment. Weight Status Overweight Subjective/Other Information RD consult for write/manage tube feed. Diet modified to pureed 02/12. Potential PEG placement prior to d/c per MD. No NG tube/PEG placed at this time. 25% Lunch consumed today per ADL notes. Appetite changes / swallowing impaired, abdomen soft, flat, BS+ per physical assessment. Weight remains stable per EMR. Tube feed recommendations below when medically necessary . Pt will eat with assistance and consumed 50% of her meal at lunch per RN - recommend assistance by RN tech during pt's LOS. Percent of energy/protein needs met: Pureed Diet provides 1804kcal/ 77g PRO q day (92%/101%) Burn Absent Trauma Absent GI Symptoms None Difficulty In Swallowing Food Allergy No Skin Integrity/Comment Sukhwinder 14 - Area of concern Current % PO Negligible Minimum of two criteria No Fluid Accumulation N/A Reduced Contaminated Land Consultant Strength N/A (non-severe) Protein-Calorie Malnutrition N\A #2 Nutrition Diagnosis Inadequate oral intake Etiology Inability to self-feed As Evidenced by Signs and Symptoms RN report of pt consuming if assisted. No eating/drinking without assistance. #1 Nutrition Diagnosis Altered nutrition-related laboratory values Diagnosis Progress(for reassessment Continues documentation) Is patient on ventilator? No Is Patient Ambulatory and/or Out of Bed No REE-([facility]-confined to bed) 1462.980 Kcal/Kg value to use for calculation 31 Approximate Energy Requirements Using 1953 kcal/Kg Calculation Used for Recommendations Kcal/kg Additional Notes Protein: 1.0-1.2g/kg ABW; 63- 76g PRO q day Fluids: 1mL/kcal or per MD Nutrition Intervention Change Diet Order: Continue current diet as tolerable. Nutrition Support: If NG or PEG tube placed, recommend initiating Osmolite 1.5 @ 20mL/hr and increasing by 10mL q 8hr to goal rate of 50mL/hr. Flush with 150mL q 4hr or per MD. Kcal 1,800 Protein (gm) 75 % RDI: 93%kcal/100%AA Goal #1 Pt to consume >75% of estimated energy/protein needs through current diet order Goal #2 Pt to maintain current wt status within 2.5% during LOS Follow-Up By: 02/15/22 Additional Comments Monitor %PO intake, eating assistance, nutrition-related labs, and wt status.
[2022-02-14] MEDS: POTASSIUM CHLORIDE 10 MEQ 10 MEQ/100 ML BAG IV SCH ×3 (18:00→21:15)
[2022-02-14] MEDS: D5W/0.45% NACL 1,000 ML IV SCH (18:01)
[2022-02-15] MEDS: HEPARIN 5,000 UNIT/1 ML VIAL SUB-Q SCH ×3 (06:39→23:28)
[2022-02-15] MEDS: EMTRICITABINE 200 MG CAP PO SCH (11:00)
[2022-02-15] MEDS: hydroCHLOROthiazide 25 MG TAB PO SCH (12:00)
[2022-02-15] MEDS: ASPIRIN 81 MG TAB CHEW PO SCH (12:00)
[2022-02-15] MEDS: levETIRAcetam 500 MG TAB PO SCH (12:00)
[2022-02-15] MEDS: DARUNAVIR 800 MG TAB PO SCH (12:01)
[2022-02-15] MEDS: RITONAVIR 100 MG TAB PO SCH (12:59)
[2022-02-15] MEDS: TENOFOVIR 300 MG TAB PO SCH (13:02)
[2022-02-15 13:59] LABS: BUN/Creatinine Ratio 46; Blood Urea Nitrogen 41 mg/dL (7-17); Hemolysis Index 9
[2022-02-15 16:09] LABS: HIV-1 RNA QN PCR 2.35 Log cps/mL
--- NOTE | 2022-02-15 19:43 | Progress Note ---
Assessment and Plan Assessment and plan: #Sepsis secondary to Enterococcus UTI/cystitis #Left axilla wound, chronic -T-max 101.5, patient reported fevers at residential -Chest x-ray reviewed and UA with pyuria; urine culture pending -Blood cultures collected; coronavirus PCR also ordered -Vancomycin discontinued. Continue cefepime (completes on 02/14/2022) -Will order wound care for left axillary wound -Infectious disease consulted, assistance appreciated #Acute toxic metabolic encephalopathy -Unsure of patient's baseline, she is responsive to her name but unable to provide history -We will continue to monitor #Severe hypokalemia #Hypomagnesemia-resolved -K 2.7-> 2.9-->2.8--> 3.7--> 3.0 -Continue aggressive potassium repletion. -magnesium repleted #HIV -CD4 count unknown -Records reviewed from [place], patient taking ARV -Continue prezista, ritonavir, emtricitabine/tenofovir at home doses -CD4 count collected -ID following, assistance appreciated #moderate calorie malnutrition #poor PO intake -Nutrition consult -if patient continues to have poor intake, may need PEG tube prior to discharge #Seizure disorder -Continue Keppra 1 g daily #Discharge planning -Patient a resident at [facility]. Next of kin contacted (mother Neetu Enamorado [phone]) voicemail left. Plan to discharge back to residential once clinically stable Social: Multiple attempts at the need trying to contact patient's/mother and were unsuccessful. We will continue to follow the patient's mother but we will consider notifying the police for a welfare check. Disposition Plan: Continue medical management Total Time Spent with Patient (Minutes): 45 minutes History Interval history: No acute events overnight. Hospitalist Physical - Constitutional Vitals: Temp Pulse Resp BP Pulse Ox 97.6 F 71 18 116/82 100 02/15/22 17:03 02/15/22 17:03 02/15/22 17:03 02/15/22 17:03 02/15/22 17:03 General appearance: Present: no acute distress, cachectic, disheveled - EENT Eyes: Present: PERRL, EOM intact ENT: hearing intact, oropharyngeal erythema, poor dentition, edentulous - Neck Neck: Present: supple, normal ROM - Respiratory Respiratory: bilateral: CTA - Cardiovascular Rhythm: regular Heart Sounds: Present: S1 & S2 - Extremities Extremities: no ischemia, pulses intact, pulses symmetrical, No edema, normal temperature, normal color Peripheral Pulses: within normal limits - Abdominal General gastrointestinal: soft, non-tender, non-distended, normal bowel sounds - Integumentary Integumentary: Present: clear, warm, dry - Psychiatric Psychiatric: other (Unable to fully assess given patient's current medical condition) - Neurologic Neurologic: other (Alert and oriented x1) - Allied Health Allied health notes reviewed: nursing, social work, case management HEART Score - HEART Score Troponin: Troponin T 0.276 ng/mL (0.00-0.029) H* 02/12/22 04:41 Results - Labs CBC & Chem 7: 02/13/22 04:17 02/15/22 13:20 Labs: Laboratory Last Values WBC 7.3 K/mm3 (4.5-11.0) 02/13/22 04:17 RBC 2.68 M/mm3 (3.65-5.03) L 02/13/22 04:17 Hgb 7.9 gm/dl (10.1-14.3) L 02/13/22 04:17 Hct 24.6 % (30.3-42.9) L D 02/13/22 04:17 MCV 92 fl (79-97) 02/13/22 04:17 MCH 30 pg (28-32) 02/13/22 04:17 MCHC 32 % (30-34) 02/13/22 04:17 RDW 15.5 % (13.2-15.2) H 02/13/22 04:17 Plt Count 336 K/mm3 (140-440) 02/13/22 04:17 Lymph % (Auto) 4.2 % (13.4-35.0) L 02/10/22 19:58 [place] % (Auto) 8.4 % (0.0-7.3) H 02/10/22 19:58 Eos % (Auto) 0.0 % (0.0-4.3) 02/10/22 19:58 Baso % (Auto) 0.1 % (0.0-1.8) 02/10/22 19:58 Lymph # (Auto) 0.5 K/mm3 (1.2-5.4) L 02/10/22 19:58 [place] # (Auto) 1.0 K/mm3 (0.0-0.8) H 02/10/22 19:58 Eos # (Auto) 0.0 K/mm3 (0.0-0.4) 18 19:58 Baso # (Auto) 0.0 K/mm3 (0.0-0.1) 02/10/22 19:58 Add Manual Diff Complete 02/13/22 04:17 Total Counted 100 02/13/22 04:17 Seg Neutrophils % Independent Freight Agent 02/13/22 04:17 Seg Neuts % (Manual) 95.0 % (40.0-70.0) H 02/13/22 04:17 Band Neutrophils % 0 % 02/13/22 04:17 Lymphocytes % (Manual) 2.0 % (13.4-35.0) L 02/13/22 04:17 Reactive Lymphs % (Man) 0 % 02/13/22 04:17 Monocytes % (Manual) 3.0 % (0.0-7.3) 02/13/22 04:17 Eosinophils % (Manual) 0 % (0.0-4.3) 02/13/22 04:17 Basophils % (Manual) 0 % (0.0-1.8) 02/13/22 04:17 Metamyelocytes % 0 % 02/13/22 04:17 Myelocytes % 0 % 02/13/22 04:17 Promyelocytes % 0 % 02/13/22 04:17 Blast Cells % 0 % 02/13/22 04:17 Nucleated RBC % Not Reportable 02/13/22 04:17 Seg Neutrophils # 10.0 K/mm3 (1.8-7.7) H 02/10/22 19:58 Seg Neutrophils # Man 6.9 K/mm3 (1.8-7.7) 02/13/22 04:17 Band Neutrophils # 0.0 K/mm3 02/13/22 04:17 Abs Lymphs (Manual) 344 cells/uL (850-3900) L 02/11/22 08:08 Lymphocytes # (Manual) 0.1 K/mm3 (1.2-5.4) L 02/13/22 04:17 Abs React Lymphs (Man) 0.0 K/mm3 02/13/22 04:17 Monocytes # (Manual) 0.2 K/mm3 (0.0-0.8) 02/13/22 04:17 Eosinophils # (Manual) 0.0 K/mm3 (0.0-0.4) 02/13/22 04:17 Basophils # (Manual) 0.0 K/mm3 (0.0-0.1) 02/13/22 04:17 Metamyelocytes # 0.0 K/mm3 02/13/22 04:17 Myelocytes # 0.0 K/mm3 02/13/22 04:17 Promyelocytes # 0.0 K/mm3 02/13/22 04:17 Blast Cells # 0.0 K/mm3 02/13/22 04:17 WBC Morphology Not Reportable 02/13/22 04:17 Hypersegmented Neuts Not Reportable 02/13/22 04:17 Hyposegmented Neuts Not Reportable 02/13/22 04:17 Hypogranular Neuts Not Reportable 02/13/22 04:17 Smudge Cells Not Reportable 02/13/22 04:17 Toxic Granulation Not Reportable 02/13/22 04:17 Toxic Vacuolation Not Reportable 02/13/22 04:17 Dohle Bodies Not Reportable 02/13/22 04:17 Pelger-Huet Anomaly Not Reportable 02/13/22 04:17 April Rods Not Reportable 02/13/22 04:17 Platelet Estimate Consistent w auto 02/13/22 04:17 Clumped Platelets Not Reportable 02/13/22 04:17 Plt Clumps, EDTA Not Reportable 02/13/22 04:17 Large Platelets Not Reportable 02/13/22 04:17 Giant Platelets Not Reportable 02/13/22 04:17 Platelet Satelliting Not Reportable 02/13/22 04:17 Plt Morphology Comment Not Reportable 02/13/22 04:17 RBC Morphology Not Reportable 02/13/22 04:17 Dimorphic RBCs Not Reportable 02/13/22 04:17 Polychromasia Not Reportable 02/13/22 04:17 Hypochromasia Not Reportable 02/13/22 04:17 Poikilocytosis Not Reportable 02/13/22 04:17 Anisocytosis Not Reportable 02/13/22 04:17 Microcytosis Not Reportable 02/13/22 04:17 Macrocytosis Not Reportable 02/13/22 04:17 Spherocytes Not Reportable 02/13/22 04:17 Pappenheimer Bodies Not Reportable 02/13/22 04:17 Sickle Cells Not Reportable 02/13/22 04:17 Target Cells Not Reportable 02/13/22 04:17 Tear Drop Cells Not Reportable 02/13/22 04:17 Ovalocytes Not Reportable 02/13/22 04:17 Helmet Cells Not Reportable 02/13/22 04:17 [place] Bodies Not Reportable 02/13/22 04:17 [place] Rings Not Reportable 02/13/22 04:17 [place] Cells Not Reportable 02/13/22 04:17 Bite Cells Not Reportable 02/13/22 04:17 Crenated Cell Not Reportable 02/13/22 04:17 Elliptocytes Not Reportable 02/13/22 04:17 Acanthocytes (Spur) Not Reportable 02/13/22 04:17 Rouleaux Not Reportable 02/13/22 04:17 Hemoglobin C Crystals Not Reportable 02/13/22 04:17 Schistocytes Not Reportable 02/13/22 04:17 Malaria parasites Not Reportable 02/13/22 04:17 Flo Bodies Not Reportable 02/13/22 04:17 Hem Pathologist Commnt No 02/13/22 04:17 PT 15.7 Sec. (12.2-14.9) H 02/10/22 19:58 INR 1.12 (0.87-1.13) 02/10/22 19:58 VBG pH 7.483 (7.320-7.420) H 02/10/22 19:58 Sodium 141 mmol/L (137-145) 02/15/22 13:20 Potassium 3.1 mmol/L (3.6-5.0) L 02/15/22 13:20 Chloride 111.4 mmol/L (98-107) H 02/15/22 13:20 Carbon Dioxide 19 mmol/L (22-30) L 02/15/22 13:20 Anion Gap 14 mmol/L 02/15/22 13:20 BUN 41 mg/dL (7-17) H 02/15/22 13:20 Creatinine 0.9 mg/dL (0.6-1.2) 02/15/22 13:20 Estimated GFR > 60 ml/min 02/15/22 13:20 BUN/Creatinine Ratio 46 % 02/15/22 13:20 Glucose 95 mg/dL (65-100) 02/15/22 13:20 POC Glucose 92 mg/dL (70-105) 02/15/22 12:07 Lactic Acid 0.90 mmol/L (0.7-2.0) 02/11/22 01:54 Calcium 10.0 mg/dL (8.4-10.2) 02/15/22 13:20 Phosphorus 2.30 mg/dL (2.5-4.5) L 02/14/22 06:58 Magnesium 1.90 mg/dL (1.7-2.3) 02/14/22 06:58 Total Bilirubin 0.60 mg/dL (0.1-1.2) 02/10/22 19:58 AST 34 units/L (5-40) 02/10/22 19:58 ALT 12 units/L (7-56) 02/10/22 19:58 Alkaline Phosphatase 102 units/L (35-129) 02/10/22 19:58 Total Creatine Kinase 469 units/L (30-135) H 02/10/22 19:58 Troponin T 0.276 ng/mL (0.00-0.029) H* 02/12/22 04:41 Total Protein 8.9 g/dL (6.3-8.2) H 02/10/22 19:58 Albumin 3.2 g/dL (3.9-5) L 02/10/22 19:58 Albumin/Globulin Ratio 0.6 % 02/10/22 19:58 Triglycerides 178 mg/dL (2-149) H 02/10/22 19:58 Cholesterol 130 mg/dL (50-199) 02/10/22 19:58 LDL Cholesterol Direct 50 mg/dL (50-130) 02/10/22 19:58 HDL Cholesterol 36 mg/dL (40-59) L 02/10/22 19:58 Cholesterol/HDL Ratio 3.61 % 02/10/22 19:58 Urine Color Yellow (Yellow) 02/10/22 Unknown Urine Turbidity Clear (Clear) 02/10/22 Unknown Specific [place] (Man) 1.020 (1.003-1.030) 02/10/22 Unknown Ur Protein (Man) 2+ mg/dL (Negative) 02/10/22 Unknown Ur Ketones (Man) 5mg/dl (Negative) 02/10/22 Unknown Ur Nitrite (Man) Negative (Negative) 02/10/22 Unknown Urine Bilirubin (Man) Moderate (Negative) 02/10/22 Unknown Urine Ictotest Negative (Negative) 02/10/22 Unknown Leukocyte Esterase (Man) Negative (Negative) 02/10/22 Unknown Urine WBC (Auto) 7.0 /HPF (0.0-6.0) H 02/10/22 Unknown Urine RBC (Auto) 2.0 /HPF (0.0-6.0) 02/10/22 Unknown U Epithel Cells (Auto) 5.0 /HPF (0-13.0) 02/10/22 Unknown Urine Bacteria (Auto) 3+ /HPF (Negative) 02/10/22 Unknown Urine RBC (Manual) 5+ (Negative) 02/10/22 Unknown Urine Mucus Few /HPF 02/10/22 Unknown Urine Yeast (Budding) 2+ /HPF 02/10/22 Unknown Lymph Enumerat CD4/CD8 0.24 (0.86-5.00) L 02/11/22 08:08 % CD3 Cells 53 % (57-85) L 02/11/22 08:08 Absolute CD3 Count 184 cells/uL (840-3060) L 02/11/22 08:08 % CD4 Cells 10 % (30-61) L 02/11/22 08:08 Absolute CD4 Count 34 cells/uL (490-1740) L 02/11/22 08:08 % CD8 Cells 42 % (12-42) 02/11/22 08:08 Absolute CD8 Count 145 cells/uL (180-1170) L 02/11/22 08:08 % CD19 Cells 10 % (6-29) 02/11/22 08:08 Absolute CD19 Count 35 cells/uL (110-660) L 02/11/22 08:08 Coronavirus (PCR) Positive (Negative) A 02/11/22 08:49 HIV-1 RNA PCR copies/ml 225 Copies/mL H 02/13/22 08:47 HIV-1 RNA (PCR) log 2.35 Log cps/mL H 02/13/22 08:47 Microbiology: Microbiology 02/10/22 19:58 Peripheral/Venous Blood Culture - Preliminary NO GROWTH AFTER 4 DAYS 02/10/22 19:58 Peripheral/Venous Blood Culture - Preliminary NO GROWTH AFTER 4 DAYS Bunn/IV: Voiding Method Incontinent Active Medications - Current Medications Current Medications: Generic Name Dose Route Start Last Admin Trade Name Freq PRN Reason Stop Dose Admin Acetaminophen 650 mg 02/10/22 22:29 Acetaminophen 325 Mg Tab PO Q4H PRN Pain MILD(1-3)/Fever >100.5/BONNER Aspirin 81 mg 02/12/22 10:00 02/15/22 12:00 Aspirin 81 Mg Tab Chew PO 81 mg QDAY MARTINEZ Administration Atorvastatin Calcium 20 mg 02/11/22 22:00 02/14/22 21:17 Atorvastatin 20 Mg Tab PO 20 mg QHS MARTINEZ Administration Darunavir 800 mg 02/11/22 18:00 02/15/22 12:01 Darunavir 800 Mg Tab PO 800 mg QDAY MARTINEZ Administration Emtricitabine 200 mg 02/11/22 18:00 02/15/22 11:00 Emtricitabine 200 Mg Cap PO 200 mg QDAY MARTINEZ Administration Heparin Sodium (Porcine) 5,000 unit 02/11/22 06:00 02/15/22 14:03 Heparin 5,000 Unit/1 Ml Vial SUB-Q 5,000 unit Q8HR MARTINEZ Administration Hydrochlorothiazide 25 mg 02/11/22 18:00 02/15/22 12:00 Hydrochlorothiazide 25 Mg Tab PO 25 mg QDAY MARTINEZ Administration Dextrose/Sodium Chloride 1,000 mls @ 75 mls/hr 02/11/22 22:00 02/14/22 18:01 D5/0.45ns IV 75 mls/hr DIRECT MARTINEZ Administration Levetiracetam 1,000 mg 02/11/22 18:00 02/15/22 12:00 Levetiracetam 500 Mg Tab PO 1,000 mg QDAY MARTINEZ Administration Magnesium Hydroxide 30 ml 02/10/22 22:29 Magnesium Hydroxide (Mom) Oral Liqd Udc PO Q4H PRN Constipation Morphine Sulfate 2 mg 02/10/22 22:29 02/11/22 04:23 Morphine 2 Mg/1 Ml Inj IV 2 mg Q4H PRN Administration Pain, Moderate (4-6) Morphine Sulfate 4 mg 02/10/22 22:29 Morphine 4 Mg/1 Ml Inj IV Q4H PRN Pain , Severe (7-10) Ondansetron HCl 4 mg 02/10/22 22:29 Ondansetron 4 Mg/2 Ml Inj IV Q8H PRN Nausea And Vomiting Ritonavir 100 mg 02/11/22 18:00 02/15/22 12:59 Ritonavir 100 Mg Tab PO 100 mg QDAY MARTINEZ Administration Sodium Chloride 10 ml 02/11/22 10:00 02/15/22 12:59 Sodium Chloride 0.9% 10 Ml Flush Syringe IV 10 ml BID MARTINEZ Administration Sodium Chloride 10 ml 02/10/22 22:29 Sodium Chloride 0.9% 10 Ml Flush Syringe IV PRN PRN LINE FLUSH Tenofovir Disoproxil Fumarate 300 mg 02/11/22 18:00 02/15/22 13:02 Tenofovir 300 Mg Tab PO Not Given QDAY MARTINEZ Nutrition/Malnutrition Assess - Dietary Evaluation Nutrition/Malnutrition Findings: Nutrition Notes Start: 02/11/22 14:09 Freq: Status: Active Protocol: Document 02/15/22 15:07 CM (Rec: 02/15/22 15:13 CM [id number]) Co-Sign 02/15/22 15:07 WW Nutrition Notes Initial or Follow up Brief Note Current Diagnosis Sepsis,Malnutrition Other Pertinent Diagnosis AMS, HIV, Seizure, L Axilla Wound Current Diet Pureed Diet Labs/Tests 02/15: K 3.0 Cl 113.5 BUN 47 Pertinent Medications 02/15: Atorvastatin Hctz Height 5 ft Weight 63 kg [place] Body Weight (kg) 45.45 BMI 27.1 Subjective/Other Information RD follow-up per protocol. 25% Lunch/Dinner 02/13 per ADL notes. 25% breakfast 02/15 per RN. Low appetite, decreased PO intake. No PEG or NGT placed at this time. Recommend initiating enteral nutrition within next 24-48 hours with PO intake continues to be <50%. Percent of energy/protein needs met: Pureed Diet provides 1804kcal/ 77g PRO q day (92%/101%) GI Symptoms None Difficulty In Swallowing Food Allergy No #2 Nutrition Diagnosis Inadequate oral intake Diagnosis Progress(for reassessment Continues documentation) #1 Nutrition Diagnosis Altered nutrition-related laboratory values Diagnosis Progress(for reassessment Improved documentation) Is patient on ventilator? No Is Patient Ambulatory and/or Out of Bed No REE-([place]-St. Jeor-confined to bed) 1462.980 Kcal/Kg value to use for calculation 31 Approximate Energy Requirements Using 1953 kcal/Kg Calculation Used for Recommendations Kcal/kg Additional Notes Protein: 1.0-1.2g/kg ABW; 63- 76g PRO q day Fluids: 1mL/kcal or per MD Nutrition Intervention Change Diet Order: Continue current diet as tolerable. Nutrition Support: Recommend initiating enteral nutrition within 24-48hrs if PO intake does not increase. Osmolite 1.5 @ 20mL/hr and increasing by 10mL q 8hr to goal rate of 50mL/hr. Flush with 150mL q 4hr or per MD. Kcal 1,800 Protein (gm) 75 % RDI: 93%kcal/100%AA Goal #1 Pt to consume >75% of estimated energy/protein needs through current diet order Goal #2 Pt to maintain current wt status within 2.5% during LOS Goal #3 Initiate enteral nutrition within 24-48 hrs if PO intake remains <50% Follow-Up By: 02/16/22 Additional Comments Monitor %PO intake, enteral nutrition administration, eating assistance, nutrition- related labs, and wt status.
[2022-02-15] MEDS: POTASSIUM CHLORIDE 10 MEQ 10 MEQ/100 ML BAG IV SCH ×3 (20:10→22:49)
[2022-02-16] MEDS: POTASSIUM CHLORIDE 10 MEQ 10 MEQ/100 ML BAG IV SCH ×5 (00:51→06:11)
[2022-02-16] MEDS: HEPARIN 5,000 UNIT/1 ML VIAL SUB-Q SCH ×3 (06:20→21:42)
[2022-02-16] MEDS: D5W/0.45% NACL 1,000 ML IV SCH ×2 (06:21→21:41)
[2022-02-16 07:23] LABS: BUN/Creatinine Ratio 43; Blood Urea Nitrogen 39 mg/dL (7-17); Calcium 10.3 mg/dL (8.4-10.2); Hemolysis Index 0
[2022-02-16 12:37] LABS: Hematocrit 26.8 % (30.3-42.9); Hemoglobin 8.6 gm/dl (10.1-14.3); Mean Corpuscular HGB Conc 32 % (30-34); Mean Corpuscular Volume 92 fl (79-97); Platelet Count 199 K/mm3 (140-440); Red Blood Count 2.91 M/mm3 (3.65-5.03); Red Cell Distribution Width 16.6 % (13.2-15.2)
--- NOTE | 2022-02-16 13:45 | Progress Note ---
Assessment and Plan Assessment and plan: #Sepsis secondary to Enterococcus UTI/cystitis #Left axilla wound, chronic -T-max 101.5, [facility] -Chest x-ray reviewed and UA with pyuria; urine culture pending -Blood cultures collected; coronavirus PCR also ordered -Vancomycin discontinued. Continue cefepime (completes on 02/14/2022) -Will order wound care for left axillary wound -Infectious disease consulted, assistance appreciated #Acute toxic metabolic encephalopathy -Unsure of patient's baseline, she is responsive to her name but unable to provide history -We will continue to monitor #Severe hypokalemiaresolved #Hypomagnesemia-resolved -K 2.7-> 2.9-->2.8--> 3.7--> 3.0-->4.8 -Continue aggressive potassium repletion. -magnesium repleted #HIV -CD4 count unknown -Records reviewed from [place], patient taking ARV -Continue prezista, ritonavir, emtricitabine/tenofovir at home doses -CD4 count collected -ID following, assistance appreciated #moderate calorie malnutrition #poor PO intake -Nutrition consult -if patient continues to have poor intake, may need PEG tube prior to discharge #Seizure disorder -Continue Keppra 1 g daily #Discharge planning -Patient a resident at [facility]. Next of kin contacted (mother Neetu Enamorado [phone]) voicemail left. Plan to [facility] back to jail once clinically stable Social: Multiple attempts at the need trying to contact patient's/mother and were unsuccessful. We will continue to follow the patient's mother but we will consider notifying the police for a welfare check. Disposition Plan: Pending placement Total Time Spent with Patient (Minutes): 30 minutes History Interval history: No acute events overnight. Hospitalist Physical - Constitutional Vitals: Temp Pulse Resp BP Pulse Ox 97.0 F L 86 16 107/78 93 02/16/22 11:32 02/16/22 11:32 02/16/22 11:32 02/16/22 11:32 02/16/22 11:32 General appearance: Present: no acute distress, cachectic, disheveled - EENT Eyes: Present: PERRL, EOM intact ENT: hearing intact, oropharyngeal erythema, poor dentition, edentulous - Neck Neck: Present: supple, normal ROM - Respiratory Respiratory effort: normal Respiratory: bilateral: CTA - Cardiovascular Rhythm: regular Heart Sounds: Present: S1 & S2 - Extremities Extremities: no ischemia, pulses intact, pulses symmetrical, No edema, normal temperature, normal color Peripheral Pulses: within normal limits - Abdominal General gastrointestinal: soft, non-tender, non-distended, normal bowel sounds - Integumentary Integumentary: Present: clear, warm, dry - Psychiatric Psychiatric: other (Confused and requiring excessive redirection) - Neurologic Neurologic: other (Alert and oriented x1) - Allied Health Allied health notes reviewed: nursing HEART Score - HEART Score Troponin: Troponin T 0.276 ng/mL (0.00-0.029) H* 02/12/22 04:41 Results - Labs CBC & Chem 7: 02/16/22 11:46 02/16/22 06:53 Labs: Laboratory Last Values WBC 6.9 K/mm3 (4.5-11.0) 02/16/22 11:46 RBC 2.91 M/mm3 (3.65-5.03) L 02/16/22 11:46 Hgb 8.6 gm/dl (10.1-14.3) L 02/16/22 11:46 Hct 26.8 % (30.3-42.9) L 02/16/22 11:46 MCV 92 fl (79-97) 02/16/22 11:46 MCH 30 pg (28-32) 02/16/22 11:46 MCHC 32 % (30-34) 02/16/22 11:46 RDW 16.6 % (13.2-15.2) H 02/16/22 11:46 Plt Count 199 K/mm3 (140-440) 02/16/22 11:46 Lymph % (Auto) 4.2 % (13.4-35.0) L 02/10/22 19:58 Starr % (Auto) 8.4 % (0.0-7.3) H 02/10/22 19:58 Eos % (Auto) 0.0 % (0.0-4.3) 02/10/22 19:58 Baso % (Auto) 0.1 % (0.0-1.8) 02/10/22 19:58 Lymph # (Auto) 0.5 K/mm3 (1.2-5.4) L 02/10/22 19:58 Starr # (Auto) 1.0 K/mm3 (0.0-0.8) H 02/10/22 19:58 Eos # (Auto) 0.0 K/mm3 (0.0-0.4) 18 19:58 Baso # (Auto) 0.0 K/mm3 (0.0-0.1) 02/10/22 19:58 Add Manual Diff Complete 02/13/22 04:17 Total Counted 100 02/13/22 04:17 Seg Neutrophils % [employer] 02/13/22 04:17 Seg Neuts % (Manual) 95.0 % (40.0-70.0) H 02/13/22 04:17 Band Neutrophils % 0 % 02/13/22 04:17 Lymphocytes % (Manual) 2.0 % (13.4-35.0) L 02/13/22 04:17 Reactive Lymphs % (Man) 0 % 02/13/22 04:17 Monocytes % (Manual) 3.0 % (0.0-7.3) 02/13/22 04:17 Eosinophils % (Manual) 0 % (0.0-4.3) 02/13/22 04:17 Basophils % (Manual) 0 % (0.0-1.8) 02/13/22 04:17 Metamyelocytes % 0 % 02/13/22 04:17 Myelocytes % 0 % 02/13/22 04:17 Promyelocytes % 0 % 02/13/22 04:17 Blast Cells % 0 % 02/13/22 04:17 Nucleated RBC % Not Reportable 02/13/22 04:17 Seg Neutrophils # 10.0 K/mm3 (1.8-7.7) H 02/10/22 19:58 Seg Neutrophils # Man 6.9 K/mm3 (1.8-7.7) 02/13/22 04:17 Band Neutrophils # 0.0 K/mm3 02/13/22 04:17 Abs Lymphs (Manual) 344 cells/uL (850-3900) L 02/11/22 08:08 Lymphocytes # (Manual) 0.1 K/mm3 (1.2-5.4) L 02/13/22 04:17 Abs React Lymphs (Man) 0.0 K/mm3 02/13/22 04:17 Monocytes # (Manual) 0.2 K/mm3 (0.0-0.8) 02/13/22 04:17 Eosinophils # (Manual) 0.0 K/mm3 (0.0-0.4) 02/13/22 04:17 Basophils # (Manual) 0.0 K/mm3 (0.0-0.1) 02/13/22 04:17 Metamyelocytes # 0.0 K/mm3 02/13/22 04:17 Myelocytes # 0.0 K/mm3 02/13/22 04:17 Promyelocytes # 0.0 K/mm3 02/13/22 04:17 Blast Cells # 0.0 K/mm3 02/13/22 04:17 WBC Morphology Not Reportable 02/13/22 04:17 Hypersegmented Neuts Not Reportable 02/13/22 04:17 Hyposegmented Neuts Not Reportable 02/13/22 04:17 Hypogranular Neuts Not Reportable 02/13/22 04:17 Smudge Cells Not Reportable 02/13/22 04:17 Toxic Granulation Not Reportable 02/13/22 04:17 Toxic Vacuolation Not Reportable 02/13/22 04:17 Dohle Bodies Not Reportable 02/13/22 04:17 Pelger-Huet Anomaly Not Reportable 02/13/22 04:17 April Rods Not Reportable 02/13/22 04:17 Platelet Estimate Consistent w auto 02/13/22 04:17 Clumped Platelets Not Reportable 02/13/22 04:17 Plt Clumps, EDTA Not Reportable 02/13/22 04:17 Large Platelets Not Reportable 02/13/22 04:17 Giant Platelets Not Reportable 02/13/22 04:17 Platelet Satelliting Not Reportable 02/13/22 04:17 Plt Morphology Comment Not Reportable 02/13/22 04:17 RBC Morphology Not Reportable 02/13/22 04:17 Dimorphic RBCs Not Reportable 02/13/22 04:17 Polychromasia Not Reportable 02/13/22 04:17 Hypochromasia Not Reportable 02/13/22 04:17 Poikilocytosis Not Reportable 02/13/22 04:17 Anisocytosis Not Reportable 02/13/22 04:17 Microcytosis Not Reportable 02/13/22 04:17 Macrocytosis Not Reportable 02/13/22 04:17 Spherocytes Not Reportable 02/13/22 04:17 Pappenheimer Bodies Not Reportable 02/13/22 04:17 Sickle Cells Not Reportable 02/13/22 04:17 Target Cells Not Reportable 02/13/22 04:17 Tear Drop Cells Not Reportable 02/13/22 04:17 Ovalocytes Not Reportable 02/13/22 04:17 Helmet Cells Not Reportable 02/13/22 04:17 Medrano-Charlo Bodies Not Reportable 02/13/22 04:17 [place] Rings Not Reportable 02/13/22 04:17 Lindsay Cells Not Reportable 02/13/22 04:17 Bite Cells Not Reportable 02/13/22 04:17 Crenated Cell Not Reportable 02/13/22 04:17 Elliptocytes Not Reportable 02/13/22 04:17 Acanthocytes (Spur) Not Reportable 02/13/22 04:17 Rouleaux Not Reportable 02/13/22 04:17 Hemoglobin C Crystals Not Reportable 02/13/22 04:17 Schistocytes Not Reportable 02/13/22 04:17 Malaria parasites Not Reportable 02/13/22 04:17 Flo Bodies Not Reportable 02/13/22 04:17 Hem Pathologist Commnt No 02/13/22 04:17 PT 15.7 Sec. (12.2-14.9) H 02/10/22 19:58 INR 1.12 (0.87-1.13) 02/10/22 19:58 VBG pH 7.483 (7.320-7.420) H 02/10/22 19:58 Sodium 139 mmol/L (137-145) 02/16/22 06:53 Potassium 4.8 mmol/L (3.6-5.0) D 02/16/22 06:53 Chloride 110.1 mmol/L (98-107) H 02/16/22 06:53 Carbon Dioxide 22 mmol/L (22-30) 02/16/22 06:53 Anion Gap 12 mmol/L 02/16/22 06:53 BUN 39 mg/dL (7-17) H 02/16/22 06:53 Creatinine 0.9 mg/dL (0.6-1.2) 02/16/22 06:53 Estimated GFR > 60 ml/min 02/16/22 06:53 BUN/Creatinine Ratio 43 % 02/16/22 06:53 Glucose 79 mg/dL (65-100) 02/16/22 06:53 POC Glucose 105 mg/dL (70-105) 02/15/22 23:39 Lactic Acid 0.90 mmol/L (0.7-2.0) 02/11/22 01:54 Calcium 10.3 mg/dL (8.4-10.2) H 02/16/22 06:53 Phosphorus 2.30 mg/dL (2.5-4.5) L 02/14/22 06:58 Magnesium 1.90 mg/dL (1.7-2.3) 02/14/22 06:58 Total Bilirubin 0.60 mg/dL (0.1-1.2) 02/10/22 19:58 AST 34 units/L (5-40) 02/10/22 19:58 ALT 12 units/L (7-56) 02/10/22 19:58 Alkaline Phosphatase 102 units/L (35-129) 02/10/22 19:58 Total Creatine Kinase 469 units/L (30-135) H 02/10/22 19:58 Troponin T 0.276 ng/mL (0.00-0.029) H* 02/12/22 04:41 Total Protein 8.9 g/dL (6.3-8.2) H 02/10/22 19:58 Albumin 3.2 g/dL (3.9-5) L 02/10/22 19:58 Albumin/Globulin Ratio 0.6 % 02/10/22 19:58 Triglycerides 178 mg/dL (2-149) H 02/10/22 19:58 Cholesterol 130 mg/dL (50-199) 02/10/22 19:58 LDL Cholesterol Direct 50 mg/dL (50-130) 02/10/22 19:58 HDL Cholesterol 36 mg/dL (40-59) L 02/10/22 19:58 Cholesterol/HDL Ratio 3.61 % 02/10/22 19:58 Urine Color Yellow (Yellow) 02/10/22 Unknown Urine Turbidity Clear (Clear) 02/10/22 Unknown Specific [place] (Man) 1.020 (1.003-1.030) 02/10/22 Unknown Ur Protein (Man) 2+ mg/dL (Negative) 02/10/22 Unknown Ur Ketones (Man) 5mg/dl (Negative) 02/10/22 Unknown Ur Nitrite (Man) Negative (Negative) 02/10/22 Unknown Urine Bilirubin (Man) Moderate (Negative) 02/10/22 Unknown Urine Ictotest Negative (Negative) 02/10/22 Unknown Leukocyte Esterase (Man) Negative (Negative) 02/10/22 Unknown Urine WBC (Auto) 7.0 /HPF (0.0-6.0) H 02/10/22 Unknown Urine RBC (Auto) 2.0 /HPF (0.0-6.0) 02/10/22 Unknown U Epithel Cells (Auto) 5.0 /HPF (0-13.0) 02/10/22 Unknown Urine Bacteria (Auto) 3+ /HPF (Negative) 02/10/22 Unknown Urine RBC (Manual) 5+ (Negative) 02/10/22 Unknown Urine Mucus Few /HPF 02/10/22 Unknown Urine Yeast (Budding) 2+ /HPF 02/10/22 Unknown Lymph Enumerat CD4/CD8 0.24 (0.86-5.00) L 02/11/22 08:08 % CD3 Cells 53 % (57-85) L 02/11/22 08:08 Absolute CD3 Count 184 cells/uL (840-3060) L 02/11/22 08:08 % CD4 Cells 10 % (30-61) L 02/11/22 08:08 Absolute CD4 Count 34 cells/uL (490-1740) L 02/11/22 08:08 % CD8 Cells 42 % (12-42) 02/11/22 08:08 Absolute CD8 Count 145 cells/uL (180-1170) L 02/11/22 08:08 % CD19 Cells 10 % (6-29) 02/11/22 08:08 Absolute CD19 Count 35 cells/uL (110-660) L 02/11/22 08:08 Coronavirus (PCR) Positive (Negative) A 02/11/22 08:49 HIV-1 RNA PCR copies/ml 225 Copies/mL H 02/13/22 08:47 HIV-1 RNA (PCR) log 2.35 Log cps/mL H 09/21/22 08:47 Microbiology: Microbiology 02/10/22 19:58 Peripheral/Venous Blood Culture - Final NO GROWTH AFTER 5 DAYS 02/10/22 19:58 Peripheral/Venous Blood Culture - Final NO GROWTH AFTER 5 DAYS Bunn/IV: Voiding Method Incontinent Active Medications - Current Medications Current Medications: Generic Name Dose Route Start Last Admin Trade Name Freq PRN Reason Stop Dose Admin Acetaminophen 650 mg 02/10/22 22:29 Acetaminophen 325 Mg Tab PO Q4H PRN Pain MILD(1-3)/Fever >100.5/BONNER Aspirin 81 mg 02/12/22 10:00 02/15/22 12:00 Aspirin 81 Mg Tab Chew PO 81 mg QDAY MARTINEZ Administration Atorvastatin Calcium 20 mg 02/11/22 22:00 02/15/22 23:28 Atorvastatin 20 Mg Tab PO 20 mg QHS MARTINEZ Administration Darunavir 800 mg 02/11/22 18:00 02/15/22 12:01 Darunavir 800 Mg Tab PO 800 mg QDAY MARTINEZ Administration Emtricitabine 200 mg 02/11/22 18:00 02/15/22 11:00 Emtricitabine 200 Mg Cap PO 200 mg QDAY MARTINEZ Administration Heparin Sodium (Porcine) 5,000 unit 02/11/22 06:00 02/16/22 06:20 Heparin 5,000 Unit/1 Ml Vial SUB-Q 5,000 unit Q8HR MARTINEZ Administration Hydrochlorothiazide 25 mg 02/11/22 18:00 02/15/22 12:00 Hydrochlorothiazide 25 Mg Tab PO 25 mg QDAY MARTINEZ Administration Dextrose/Sodium Chloride 1,000 mls @ 75 mls/hr 02/11/22 22:00 02/16/22 06:21 D5/0.45ns IV 75 mls/hr DIRECT MARTINEZ Administration Levetiracetam 1,000 mg 02/11/22 18:00 02/15/22 12:00 Levetiracetam 500 Mg Tab PO 1,000 mg QDAY MARTINEZ Administration Magnesium Hydroxide 30 ml 02/10/22 22:29 Magnesium Hydroxide (Mom) Oral Liqd Udc PO Q4H PRN Constipation Morphine Sulfate 2 mg 02/10/22 22:29 02/11/22 04:23 Morphine 2 Mg/1 Ml Inj IV 2 mg Q4H PRN Administration Pain, Moderate (4-6) Morphine Sulfate 4 mg 09/18/22 22:29 Morphine 4 Mg/1 Ml Inj IV Q4H PRN Pain , Severe (7-10) Ondansetron HCl 4 mg 02/10/22 22:29 Ondansetron 4 Mg/2 Ml Inj IV Q8H PRN Nausea And Vomiting Ritonavir 100 mg 02/11/22 18:00 02/15/22 12:59 Ritonavir 100 Mg Tab PO 100 mg QDAY MARTINEZ Administration Sodium Chloride 10 ml 02/11/22 10:00 02/15/22 23:29 Sodium Chloride 0.9% 10 Ml Flush Syringe IV 10 ml BID MARTINEZ Administration Sodium Chloride 10 ml 02/10/22 22:29 Sodium Chloride 0.9% 10 Ml Flush Syringe IV PRN PRN LINE FLUSH Tenofovir Disoproxil Fumarate 300 mg 02/11/22 18:00 02/15/22 13:02 Tenofovir 300 Mg Tab PO Not Given QDAY [facility] Nutrition/Malnutrition Assess - Dietary Evaluation Nutrition/Malnutrition Findings: Nutrition Notes Start: 02/11/22 14:09 Freq: Status: Active Protocol: Document 02/16/22 12:11 JOSSELINE (Rec: 02/16/22 12:59 JOSSELINE [id number]) Nutrition Notes Initial or Follow up Reassessment Current Diagnosis Sepsis,Malnutrition Other Pertinent Diagnosis Metabolic Encephalopathy, UTI, Cystitis, Seizures, HIV, COVID-19. Current Diet NPO, TF-Jevity 1.2 Robert @ 40 ml /hr (from D 02/16). Labs/Tests 02/16: Cl 110.1, BUN 39, Ca 10 .3. Pertinent Medications 02/16: D5/0.45ns @ 75ml/hr, others nutritionally unremarkable. Height 5 ft Weight 63 kg [place] Body Weight (kg) 45.45 BMI 27.1 Weight change and time frame No body weight change reported in 5 days. Weight Status Overweight Subjective/Other Information RD consult for dietary advancement assessment. Pt currently on NPO. RN requested TF over the phone , order will be posted later, I will prescribe TF to provide Pt with energy/protein needs during LOS. Pt is on Room Air, O2 saturation @ 100%, according to Physical Assessment History notes. Pt is incontinent, according to Physical Assessment History notes. Pt has missing teeth, according to Physical Assessment History notes. Pt remains isolated due to COVID-19 infection, according to Physical Assessment History notes. Pt is a SNF resident, according to Progress notes. Percent of energy/protein needs met: Prescribed TF-Jevity 1.2 Robert @ 40 ml/hr provides for energy/ protein needs (1140 Kcal/53 g) during LOS, 106% Kcal; 100% AA. Burn Absent Trauma Absent GI Symptoms Other Difficulty In Swallowing Food Allergy No Skin Integrity/Comment L-Axila wound. Current % PO Other Minimum of two criteria No Fluid Accumulation N/A Reduced Blow Down Helper Strength N/A (non-severe) Protein-Calorie Malnutrition N\A #2 Nutrition Diagnosis Inadequate oral intake Comments: RN requested TF order over the phone on 02/16. Diagnosis Progress(for reassessment Continues documentation) #1 Nutrition Diagnosis Altered nutrition-related laboratory values Comments: 02/16: Cl 110.1, BUN 39, Ca 10 .3. Diagnosis Progress(for reassessment Resolved documentation) Is patient on ventilator? No Is Patient Ambulatory and/or Out of Bed No REE-([facility]-confined to bed) 1462.980 Kcal/Kg value to use for calculation 17 Approximate Energy Requirements Using 1071 kcal/Kg Calculation Used for Recommendations Kcal/kg Additional Notes Protein: 0.8-1 g/Kg ABW; 50-63 g/day. Fluids: 1 ml/Kcal, or as per MD. Nutrition Intervention Change Diet Order: Discontinued. Nutrition Support: Start TF-Jevity 1.2 Robert @ 40 ml/hr. Flush: 50 ml water Q 4 , or as per MD. Kcal 1,140 Protein (gm) 53 Carbohydrates (gm) 161 Fat (gm) 37 Fluid (mL) 767 Fiber (gm) 17 % RDI: 106% Kcal; 100% AA. Goal #1 Provide at least 75% of energy /protein needs through Enteral Feeding during LOS. Follow-Up By: 02/18/22 Additional Comments Start monitoring TF tolerance and BM.
--- NOTE | 2022-02-16 13:56 | XRay Report ---
ABDOMEN 1 VIEW INDICATION / CLINICAL INFORMATION: verify dobhoff for feeding. COMPARISON: None available. FINDINGS: TUBES / LINES: A Dobbhoff tube terminates over the gastric antrum. BOWEL GAS PATTERN: No significant abnormality. FREE AIR / EXTRALUMINAL GAS: None seen. ADDITIONAL FINDINGS: No significant additional findings. IMPRESSION: Dobbhoff tube as above. No acute abdominal findings. Signer Name: Juanjo Bond MD Signed: 02/16/2022 1:52 PM Workstation Name: [id number]
[2022-02-16] MEDS: DARUNAVIR 800 MG TAB PO SCH (16:18)
[2022-02-16] MEDS: EMTRICITABINE 200 MG CAP PO SCH (16:18)
[2022-02-16] MEDS: hydroCHLOROthiazide 25 MG TAB PO SCH (16:18)
[2022-02-16] MEDS: TENOFOVIR 300 MG TAB PO SCH (16:18)
[2022-02-16] MEDS: ASPIRIN 81 MG TAB CHEW PO SCH (16:18)
[2022-02-16] MEDS: levETIRAcetam 500 MG TAB PO SCH (16:18)
[2022-02-16] MEDS: RITONAVIR 100 MG TAB PO SCH (16:19)
[2022-02-17 06:23] LABS: BUN/Creatinine Ratio 44; Blood Urea Nitrogen 35 mg/dL (7-17); Hemolysis Index 1
[2022-02-17] MEDS: HEPARIN 5,000 UNIT/1 ML VIAL SUB-Q SCH ×3 (06:27→21:58)
--- NOTE | 2022-02-17 10:07 | Progress Note ---
Assessment and Plan Assessment and plan: #Sepsis secondary to Enterococcus UTI/cystitisresolved #Left axilla wound, chronic -T-max 101.5, patient reported fevers at snf -Chest x-ray reviewed and UA with pyuria; urine culture pending -Blood cultures collected; coronavirus PCR also ordered -Vancomycin discontinued. Continue cefepime (completes on 02/14/2022) -Will order wound care for left axillary wound -Infectious disease consulted, assistance appreciated #Acute toxic metabolic encephalopathy -Unsure of patient's baseline, she is responsive to her name but unable to provide history -We will continue to monitor #Severe hypokalemiaresolved #Hypomagnesemia-resolved -K 2.7-> 2.9-->2.8--> 3.7--> 3.0-->4.8 -Continue aggressive potassium repletion. -magnesium repleted #End-stage HIV/AIDS -CD4 count unknown -Records reviewed from [place], patient taking ARV -Continue prezista, ritonavir, emtricitabine/tenofovir at home doses -CD4 count collected -ID following, assistance appreciated #moderate calorie malnutrition #poor PO intake -Nutrition consult -if patient continues to have poor intake, may need PEG tube prior to discharge #Seizure disorder -Continue Keppra 1 g daily #Discharge planning -Patient a resident at [facility]. Next of kin contacted (mother Neetu Enamorado [phone]) voicemail left. Plan to discharge back to snf once clinically stable Social: Multiple attempts at the need trying to contact patient's/mother and were unsuccessful. We will continue to follow the patient's mother but we will consider notifying the police for a welfare check. Unsuccessful welfare check as Neetu Childers address is currently unknown. Patient likely will need to become [place] of the state. Patient is also appropria te as a hospice candidate given the severe deterioration she has experienced from end-stage HIV/AIDS. Disposition Plan: Pending placement Total Time Spent with Patient (Minutes): 30 minutes History Interval history: No acute events overnight. Hospitalist Physical - Constitutional Vitals: Temp Pulse Resp BP Pulse Ox 96.9 F L 91 H 17 106/71 98 02/17/22 06:29 02/17/22 06:29 02/17/22 06:29 02/17/22 06:29 02/17/22 06:29 General appearance: Present: no acute distress, cachectic, disheveled - EENT Eyes: Present: PERRL, EOM intact ENT: hearing intact, oropharyngeal erythema, poor dentition, edentulous, other (NG tube in place) - Neck Neck: Present: supple, normal ROM - Respiratory Respiratory effort: normal Respiratory: bilateral: CTA - Cardiovascular Rhythm: regular Heart Sounds: Present: S1 & S2 - Extremities Extremities: no ischemia, pulses intact, pulses symmetrical, No edema, normal temperature, normal color Peripheral Pulses: within normal limits - Abdominal General gastrointestinal: soft, non-tender, non-distended, normal bowel sounds - Integumentary Integumentary: Present: clear, warm, dry - Psychiatric Psychiatric: other (Unable to fully determine given level of mentation) - Neurologic Neurologic: CNII-XII intact, other (Alert and oriented x1) - Allied Health Allied health notes reviewed: nursing HEART Score - HEART Score Troponin: Troponin T 0.276 ng/mL (0.00-0.029) H* 02/12/22 04:41 Results - Labs CBC & Chem 7: 02/16/22 11:46 02/17/22 05:18 Labs: Laboratory Last Values WBC 6.9 K/mm3 (4.5-11.0) 02/16/22 11:46 RBC 2.91 M/mm3 (3.65-5.03) L 02/16/22 11:46 Hgb 8.6 gm/dl (10.1-14.3) L 02/16/22 11:46 Hct 26.8 % (30.3-42.9) L 02/16/22 11:46 MCV 92 fl (79-97) 02/16/22 11:46 MCH 30 pg (28-32) 02/16/22 11:46 MCHC 32 % (30-34) 02/16/22 11:46 RDW 16.6 % (13.2-15.2) H 02/16/22 11:46 Plt Count 199 K/mm3 (140-440) 02/16/22 11:46 Lymph % (Auto) 4.2 % (13.4-35.0) L 02/10/22 19:58 [place] % (Auto) 8.4 % (0.0-7.3) H 02/10/22 19:58 Eos % (Auto) 0.0 % (0.0-4.3) 02/10/22 19:58 Baso % (Auto) 0.1 % (0.0-1.8) 02/10/22 19:58 Lymph # (Auto) 0.5 K/mm3 (1.2-5.4) L 02/10/22 19:58 [place] # (Auto) 1.0 K/mm3 (0.0-0.8) H 02/10/22 19:58 Eos # (Auto) 0.0 K/mm3 (0.0-0.4) 02/10/22 19:58 Baso # (Auto) 0.0 K/mm3 (0.0-0.1) 02/10/22 19:58 Add Manual Diff Complete 02/13/22 04:17 Total Counted 100 02/13/22 04:17 Seg Neutrophils % Carbon Paper Machine Operator 02/13/22 04:17 Seg Neuts % (Manual) 95.0 % (40.0-70.0) H 02/13/22 04:17 Band Neutrophils % 0 % 02/13/22 04:17 Lymphocytes % (Manual) 2.0 % (13.4-35.0) L 02/13/22 04:17 Reactive Lymphs % (Man) 0 % 02/13/22 04:17 Monocytes % (Manual) 3.0 % (0.0-7.3) 02/13/22 04:17 Eosinophils % (Manual) 0 % (0.0-4.3) 02/13/22 04:17 Basophils % (Manual) 0 % (0.0-1.8) 02/13/22 04:17 Metamyelocytes % 0 % 02/13/22 04:17 Myelocytes % 0 % 02/13/22 04:17 Promyelocytes % 0 % 02/13/22 04:17 Blast Cells % 0 % 02/13/22 04:17 Nucleated RBC % Not Reportable 02/13/22 04:17 Seg Neutrophils # 10.0 K/mm3 (1.8-7.7) H 02/10/22 19:58 Seg Neutrophils # Man 6.9 K/mm3 (1.8-7.7) 02/13/22 04:17 Band Neutrophils # 0.0 K/mm3 02/13/22 04:17 Abs Lymphs (Manual) 344 cells/uL (850-3900) L 02/11/22 08:08 Lymphocytes # (Manual) 0.1 K/mm3 (1.2-5.4) L 02/13/22 04:17 Abs React Lymphs (Man) 0.0 K/mm3 02/13/22 04:17 Monocytes # (Manual) 0.2 K/mm3 (0.0-0.8) 02/13/22 04:17 Eosinophils # (Manual) 0.0 K/mm3 (0.0-0.4) 02/13/22 04:17 Basophils # (Manual) 0.0 K/mm3 (0.0-0.1) 02/13/22 04:17 Metamyelocytes # 0.0 K/mm3 02/13/22 04:17 Myelocytes # 0.0 K/mm3 02/13/22 04:17 Promyelocytes # 0.0 K/mm3 02/13/22 04:17 Blast Cells # 0.0 K/mm3 02/13/22 04:17 WBC Morphology Not Reportable 02/13/22 04:17 Hypersegmented Neuts Not Reportable 02/13/22 04:17 Hyposegmented Neuts Not Reportable 02/13/22 04:17 Hypogranular Neuts Not Reportable 02/13/22 04:17 Smudge Cells Not Reportable 02/13/22 04:17 Toxic Granulation Not Reportable 02/13/22 04:17 Toxic Vacuolation Not Reportable 02/13/22 04:17 Dohle Bodies Not Reportable 02/13/22 04:17 Pelger-Huet Anomaly Not Reportable 02/13/22 04:17 April Rods Not Reportable 02/13/22 04:17 Platelet Estimate Consistent w auto 02/13/22 04:17 Clumped Platelets Not Reportable 02/13/22 04:17 Plt Clumps, EDTA Not Reportable 02/13/22 04:17 Large Platelets Not Reportable 02/13/22 04:17 Giant Platelets Not Reportable 02/13/22 04:17 Platelet Satelliting Not Reportable 02/13/22 04:17 Plt Morphology Comment Not Reportable 02/13/22 04:17 RBC Morphology Not Reportable 02/13/22 04:17 Dimorphic RBCs Not Reportable 02/13/22 04:17 Polychromasia Not Reportable 02/13/22 04:17 Hypochromasia Not Reportable 02/13/22 04:17 Poikilocytosis Not Reportable 02/13/22 04:17 Anisocytosis Not Reportable 02/13/22 04:17 Microcytosis Not Reportable 02/13/22 04:17 Macrocytosis Not Reportable 02/13/22 04:17 Spherocytes Not Reportable 02/13/22 04:17 Pappenheimer Bodies Not Reportable 02/13/22 04:17 Sickle Cells Not Reportable 02/13/22 04:17 Target Cells Not Reportable 02/13/22 04:17 Tear Drop Cells Not Reportable 02/13/22 04:17 Ovalocytes Not Reportable 02/13/22 04:17 Helmet Cells Not Reportable 02/13/22 04:17 [place] Bodies Not Reportable 02/13/22 04:17 Stone Rings Not Reportable 02/13/22 04:17 [place] Cells Not Reportable 02/13/22 04:17 Bite Cells Not Reportable 02/13/22 04:17 Crenated Cell Not Reportable 02/13/22 04:17 Elliptocytes Not Reportable 02/13/22 04:17 Acanthocytes (Spur) Not Reportable 02/13/22 04:17 Rouleaux Not Reportable 02/13/22 04:17 Hemoglobin C Crystals Not Reportable 02/13/22 04:17 Schistocytes Not Reportable 02/13/22 04:17 Malaria parasites Not Reportable 02/13/22 04:17 Flo Bodies Not Reportable 02/13/22 04:17 Hem Pathologist Commnt No 02/13/22 04:17 PT 15.7 Sec. (12.2-14.9) H 02/10/22 19:58 INR 1.12 (0.87-1.13) 02/10/22 19:58 VBG pH 7.483 (7.320-7.420) H 02/10/22 19:58 Sodium 134 mmol/L (137-145) L 02/17/22 05:18 Potassium 4.1 mmol/L (3.6-5.0) 02/17/22 05:18 Chloride 108.2 mmol/L (98-107) H 02/17/22 05:18 Carbon Dioxide 18 mmol/L (22-30) L 02/17/22 05:18 Anion Gap 12 mmol/L 02/17/22 05:18 BUN 35 mg/dL (7-17) H 02/17/22 05:18 Creatinine 0.8 mg/dL (0.6-1.2) 02/17/22 05:18 Estimated GFR > 60 ml/min 02/17/22 05:18 BUN/Creatinine Ratio 44 % 02/17/22 05:18 Glucose 93 mg/dL (65-100) 02/17/22 05:18 POC Glucose 125 mg/dL (70-105) H 02/16/22 16:33 Lactic Acid 0.90 mmol/L (0.7-2.0) 02/11/22 01:54 Calcium 10.0 mg/dL (8.4-10.2) 02/17/22 05:18 Phosphorus 2.30 mg/dL (2.5-4.5) L 02/14/22 06:58 Magnesium 1.90 mg/dL (1.7-2.3) 02/14/22 06:58 Total Bilirubin 0.60 mg/dL (0.1-1.2) 02/10/22 19:58 AST 34 units/L (5-40) 02/10/22 19:58 ALT 12 units/L (7-56) 02/10/22 19:58 Alkaline Phosphatase 102 units/L (35-129) 02/10/22 19:58 Total Creatine Kinase 469 units/L (30-135) H 02/10/22 19:58 Troponin T 0.276 ng/mL (0.00-0.029) H* 02/12/22 04:41 Total Protein 8.9 g/dL (6.3-8.2) H 02/10/22 19:58 Albumin 3.2 g/dL (3.9-5) L 02/10/22 19:58 Albumin/Globulin Ratio 0.6 % 02/10/22 19:58 Triglycerides 178 mg/dL (2-149) H 02/10/22 19:58 Cholesterol 130 mg/dL (50-199) 02/10/22 19:58 LDL Cholesterol Direct 50 mg/dL (50-130) 02/10/22 19:58 HDL Cholesterol 36 mg/dL (40-59) L 02/10/22 19:58 Cholesterol/HDL Ratio 3.61 % 02/10/22 19:58 Urine Color Yellow (Yellow) 02/10/22 Unknown Urine Turbidity Clear (Clear) 02/10/22 Unknown Specific [place] (Man) 1.020 (1.003-1.030) 02/10/22 Unknown Ur Protein (Man) 2+ mg/dL (Negative) 02/10/22 Unknown Ur Ketones (Man) 5mg/dl (Negative) 02/10/22 Unknown Ur Nitrite (Man) Negative (Negative) 02/10/22 Unknown Urine Bilirubin (Man) Moderate (Negative) 02/10/22 Unknown Urine Ictotest Negative (Negative) 02/10/22 Unknown Leukocyte Esterase (Man) Negative (Negative) 02/10/22 Unknown Urine WBC (Auto) 7.0 /HPF (0.0-6.0) H 02/10/22 Unknown Urine RBC (Auto) 2.0 /HPF (0.0-6.0) 02/10/22 Unknown U Epithel Cells (Auto) 5.0 /HPF (0-13.0) 02/10/22 Unknown Urine Bacteria (Auto) 3+ /HPF (Negative) 02/10/22 Unknown Urine RBC (Manual) 5+ (Negative) 02/10/22 Unknown Urine Mucus Few /HPF 02/10/22 Unknown Urine Yeast (Budding) 2+ /HPF 02/10/22 Unknown Lymph Enumerat CD4/CD8 0.24 (0.86-5.00) L 02/11/22 08:08 % CD3 Cells 53 % (57-85) L 02/11/22 08:08 Absolute CD3 Count 184 cells/uL (840-3060) L 02/11/22 08:08 % CD4 Cells 10 % (30-61) L 02/11/22 08:08 Absolute CD4 Count 34 cells/uL (490-1740) L 02/11/22 08:08 % CD8 Cells 42 % (12-42) 02/11/22 08:08 Absolute CD8 Count 145 cells/uL (180-1170) L 02/11/22 08:08 % CD19 Cells 10 % (6-29) 02/11/22 08:08 Absolute CD19 Count 35 cells/uL (110-660) L 02/11/22 08:08 Coronavirus (PCR) Positive (Negative) A 02/11/22 08:49 HIV-1 RNA PCR copies/ml 225 Copies/mL H 02/13/22 08:47 HIV-1 RNA (PCR) log 2.35 Log cps/mL H 02/13/22 08:47 [place]/IV: Voiding Method External Female Catheter Active Medications - Current Medications Current Medications: Generic Name Dose Route Start Last Admin Trade Name Freq PRN Reason Stop Dose Admin Acetaminophen 650 mg 02/10/22 22:29 Acetaminophen 325 Mg Tab PO Q4H PRN Pain MILD(1-3)/Fever >100.5/BONNER Aspirin 81 mg 02/12/22 10:00 02/16/22 16:18 Aspirin 81 Mg Tab Chew PO 81 mg QDAY MARTINEZ Administration Atorvastatin Calcium 20 mg 02/11/22 22:00 02/16/22 21:42 Atorvastatin 20 Mg Tab PO 20 mg QHS MARTINEZ Administration Darunavir 800 mg 02/11/22 18:00 02/16/22 16:18 Darunavir 800 Mg Tab PO 800 mg QDAY MARTINEZ Administration Emtricitabine 200 mg 02/11/22 18:00 02/16/22 16:18 Emtricitabine 200 Mg Cap PO 200 mg QDAY MARTINEZ Administration Heparin Sodium (Porcine) 5,000 unit 02/11/22 06:00 02/17/22 06:27 Heparin 5,000 Unit/1 Ml Vial SUB-Q 5,000 unit Q8HR MARTINEZ Administration Hydrochlorothiazide 25 mg 02/11/22 18:00 02/16/22 16:18 Hydrochlorothiazide 25 Mg Tab PO 25 mg QDAY MARTINEZ Administration Dextrose/Sodium Chloride 1,000 mls @ 75 mls/hr 02/11/22 22:00 02/16/22 21:41 D5/0.45ns IV 75 mls/hr DIRECT MARTINEZ Administration Levetiracetam 1,000 mg 02/11/22 18:00 02/16/22 16:18 Levetiracetam 500 Mg Tab PO 1,000 mg QDAY MARTINEZ Administration Magnesium Hydroxide 30 ml 02/10/22 22:29 Magnesium Hydroxide (Mom) Oral Liqd Udc PO Q4H PRN Constipation Morphine Sulfate 2 mg 02/10/22 22:29 02/11/22 04:23 Morphine 2 Mg/1 Ml Inj IV 2 mg Q4H PRN Administration Pain, Moderate (4-6) Morphine Sulfate 4 mg 02/10/22 22:29 Morphine 4 Mg/1 Ml Inj IV Q4H PRN Pain , Severe (7-10) Ondansetron HCl 4 mg 02/10/22 22:29 Ondansetron 4 Mg/2 Ml Inj IV Q8H PRN Nausea And Vomiting Ritonavir 100 mg 02/11/22 18:00 02/16/22 16:19 Ritonavir 100 Mg Tab PO 100 mg QDAY MARTINEZ Administration Sodium Chloride 10 ml 02/11/22 10:00 02/16/22 21:42 Sodium Chloride 0.9% 10 Ml Flush Syringe IV 10 ml BID MARTINEZ Administration Sodium Chloride 10 ml 02/10/22 22:29 Sodium Chloride 0.9% 10 Ml Flush Syringe IV PRN PRN LINE FLUSH Tenofovir Disoproxil Fumarate 300 mg 02/11/22 18:00 02/16/22 16:18 Tenofovir 300 Mg Tab PO 300 mg QDAY MARTINEZ Administration Nutrition/Malnutrition Assess - Dietary Evaluation Nutrition/Malnutrition Findings: Nutrition Notes Start: 02/11/22 14:09 Freq: Status: Active Protocol: Document 02/16/22 12:11 JOSSELINE (Rec: 02/16/22 12:59 JOSSELINE [email or web address]) Nutrition Notes Initial or Follow up Reassessment Current Diagnosis Sepsis,Malnutrition Other Pertinent Diagnosis Metabolic Encephalopathy, UTI, Cystitis, Seizures, HIV, COVID-19. Current Diet NPO, TF-Glucerna 1.2 Robert @ 40 ml/hr (from D 02/16). Labs/Tests 02/16: Cl 110.1, BUN 39, Ca 10 .3. Pertinent Medications 02/16: D5/0.45ns @ 75ml/hr, others nutritionally unremarkable. Height 5 ft Weight 63 kg [place] Body Weight (kg) 45.45 BMI 27.1 Weight change and time frame No body weight change reported in 5 days. Weight Status Overweight Subjective/Other Information RD consult for dietary advancement assessment. Pt currently on NPO. RN requested TF over the phone , order will be posted later, I will prescribe TF to provide Pt with energy/protein needs during LOS. Originally I did prescribe Jevity 1.2 Robert, but is not currently available, so I replaced it for Glucerna 1.2 Robert. Pt is on Room Air, O2 saturation @ 100%, according to Physical Assessment History notes. Pt is incontinent, according to Physical Assessment History notes. Pt has missing teeth, according to Physical Assessment History notes. Pt remains isolated due to COVID-19 infection, according to Physical Assessment History notes. Pt is a SNF resident, according to Progress notes. Percent of energy/protein needs met: Prescribed TF-Glucerna 1.2 Robert @ 40 ml/hr provides for energy/protein needs (1140 Kcal/57 g) during LOS, 106% Kcal; 100% AA. Burn Absent Trauma Absent GI Symptoms Other Difficulty In Swallowing Food Allergy No Skin Integrity/Comment L-Axila wound. Current % PO Other Minimum of two criteria No Fluid Accumulation N/A Reduced Marketing Campaign Analyst Strength N/A (non-severe) Protein-Calorie Malnutrition N\A #2 Nutrition Diagnosis Inadequate oral intake Comments: RN requested TF order over the phone on 02/16. Diagnosis Progress(for reassessment Continues documentation) #1 Nutrition Diagnosis Altered nutrition-related laboratory values Comments: 02/16: Cl 110.1, BUN 39, Ca 10 .3. Diagnosis Progress(for reassessment Resolved documentation) Is patient on ventilator? No Is Patient Ambulatory and/or Out of Bed No REE-([facility]-confined to bed) 1462.980 Kcal/Kg value to use for calculation 17 Approximate Energy Requirements Using 1071 kcal/Kg Calculation Used for Recommendations Kcal/kg Additional Notes Protein: 0.8-1 g/Kg ABW; 50-63 g/day. Fluids: 1 ml/Kcal, or as per MD. Nutrition Intervention Change Diet Order: Discontinued. Nutrition Support: Start TF-Glucerna 1.2 Robert @ 40 ml/hr. Flush: 50 ml water Q 4 , or as per MD. Kcal 1,140 Protein (gm) 57 Carbohydrates (gm) 109 Fat (gm) 57 Fluid (mL) 765 Fiber (gm) 15 % RDI: 106% Kcal; 100% AA. Goal #1 Provide at least 75% of energy /protein needs through Enteral Feeding during LOS. Follow-Up By: 02/18/22 Additional Comments Start monitoring TF tolerance and BM.
[2022-02-17] MEDS: levETIRAcetam 500 MG TAB PO SCH (10:08)
[2022-02-17] MEDS: DARUNAVIR 800 MG TAB PO SCH (10:08)
[2022-02-17] MEDS: TENOFOVIR 300 MG TAB PO SCH (10:08)
[2022-02-17] MEDS: EMTRICITABINE 200 MG CAP PO SCH (10:08)
[2022-02-17] MEDS: RITONAVIR 100 MG TAB PO SCH (10:08)
[2022-02-17] MEDS: hydroCHLOROthiazide 25 MG TAB PO SCH (10:08)
[2022-02-17] MEDS: ASPIRIN 81 MG TAB CHEW PO SCH (10:08)
[2022-02-17] MEDS: D5W/0.45% NACL 1,000 ML IV SCH (19:27)
--- NOTE | 2022-02-18 00:51 | XRay Report ---
CHEST 1 VIEW 02/17/2022 10:59 PM INDICATION / CLINICAL INFORMATION: aspiration pneumonia. COMPARISON: 02/11/2022 FINDINGS: SUPPORT DEVICES: Nasogastric tube courses into the stomach in expected position, but its distal tip i s located below the field of view. HEART / MEDIASTINUM: No significant abnormality. LUNGS / PLEURA: New right lower lobe alveolar infiltrates concerning for acute aspiration pneumonia. No pneumothorax. ADDITIONAL FINDINGS: None IMPRESSION: 1. New right lower lobe alveolar infiltrates concerning for acute aspiration pneumonia. 2. Expected position of the nasogastric tube. Signer Name: Isaak Shaffer MD Signed: 02/18/2022 12:47 AM Workstation Name: [id number]
[2022-02-18] MEDS: DEXTROSE 50% IN WATER (25GM) 50 ML SYRINGE IV PRN (04:35)
[2022-02-18] MEDS: HEPARIN 5,000 UNIT/1 ML VIAL SUB-Q SCH ×3 (05:12→22:05)
[2022-02-18] MEDS: D5W/0.45% NACL 1,000 ML IV SCH ×2 (06:00→22:26)
[2022-02-18 09:27] LABS: BUN/Creatinine Ratio 34; Blood Urea Nitrogen 31 mg/dL (7-17); Calcium 9.5 mg/dL (8.4-10.2); Hemolysis Index 49
[2022-02-18] MEDS ORDERED: SCOPOLAMINE TRANSDERMAL PATCH 72 HR TD SCH (10:00)
[2022-02-18] MEDS: hydroCHLOROthiazide 25 MG TAB PO SCH (11:21)
[2022-02-18] MEDS: ASPIRIN 81 MG TAB CHEW PO SCH (11:21)
[2022-02-18] MEDS: RITONAVIR 100 MG TAB PO SCH (11:22)
[2022-02-18] MEDS: EMTRICITABINE 200 MG CAP PO SCH (11:22)
[2022-02-18] MEDS: TENOFOVIR 300 MG TAB PO SCH (11:22)
[2022-02-18] MEDS: levETIRAcetam 500 MG/5 ML ORAL LIQD PO SCH (11:36)
[2022-02-18] MEDS: DARUNAVIR 800 MG TAB PO SCH (11:37)
[2022-02-18] MEDS: METOPROLOL TARTRATE 25 MG TAB PO SCH ×2 (11:38→22:06)
--- NOTE | 2022-02-18 14:28 | Progress Note ---
Assessment and Plan Assessment and plan: #Right lower lobe consolidation secondary to aspiration Chest x-ray revealing right lower lobe solid lesion consistent with patient Patient is likely aspirating oral secretions. Ordering scopolamine patch. Holding on antibiotics as the patient may only experience pneumonitis versus pneumonia. Patient becomes hemodynamically stable, antibiotics will be initiated. Continue to monitor #Sepsis secondary to Enterococcus UTI/cystitisresolved #Left axilla wound, chronic -T-max 101.5, patient reported fevers at shelter -Chest x-ray reviewed and UA with pyuria; urine culture pending -Blood cultures collected; coronavirus PCR also ordered -Vancomycin discontinued. Continue cefepime (completes on 02/14/2022) -Will order wound care for left axillary wound -Infectious disease consulted, assistance appreciated #Acute toxic metabolic encephalopathy -Unsure of patient's baseline, she is responsive to her name but unable to provide history -We will continue to monitor #Severe hypokalemiaresolved #Hypomagnesemia-resolved -K 2.7-> 2.9-->2.8--> 3.7--> 3.0-->4.8 -Continue aggressive potassium repletion. -magnesium repleted #End-stage HIV/AIDS -CD4 count unknown -Records reviewed from [place], patient taking ARV -Continue prezista, ritonavir, emtricitabine/tenofovir at home doses -CD4 count collected -ID following, assistance appreciated #moderate calorie malnutrition #poor PO intake -Nutrition consult -if patient continues to have poor intake, may need PEG tube prior to discharge #Seizure disorder -Continue Keppra 1 g daily #Discharge planning -Patient a resident at [facility]. Next of kin contacted (mother Neetu Enamorado [phone]) voicemail left. Plan to discharge back to shelter once clinically stable Social: Multiple attempts at the need trying to contact patient's/mother and were unsuccessful. We will continue to follow the patient's mother but we will consider notifying the police for a welfare check. Unsuccessful welfare check as Neetu Childers address is currently unknown. Patient likely will need to become [place] of the state. Patient is also appropriate as a hospice candidate given the severe deterioration she has experienced from end-stage HIV/AIDS. Disposition Plan: Pending placement Total Time Spent with Patient (Minutes): 45 minutes History Interval history: Patient had an episode of increased work of breathing last night resulting in her obtaining a chest x-ray. Chest x-ray was remarkable for new right lower lobe consolidation consistent with acute aspiration. Hospitalist Physical - Constitutional Vitals: Temp Pulse Resp BP Pulse Ox 97.8 F 118 H 18 106/75 99 02/18/22 11:39 02/18/22 11:39 02/18/22 11:39 02/18/22 11:39 02/18/22 11:39 General appearance: Present: no acute distress, cachectic, disheveled - EENT Eyes: Present: PERRL, EOM intact ENT: hearing intact, oropharyngeal erythema, poor dentition, edentulous, other (NG tube in place) - Neck Neck: Present: supple, normal ROM - Respiratory Respiratory effort: normal Respiratory: bilateral: CTA - Cardiovascular Rhythm: regular Heart Sounds: Present: S1 & S2 - Extremities Extremities: no ischemia, pulses intact, pulses symmetrical, No edema, normal temperature, normal color, abnormal (Bilateral lower extremity contractures) Peripheral Pulses: within normal limits - Abdominal General gastrointestinal: soft, non-tender, non-distended, normal bowel sounds - Integumentary Integumentary: Present: clear, warm, dry - Psychiatric Psychiatric: other (Unable to fully assess given patient's encephalopathy) - Neurologic Neurologic: CNII-XII intact, other (Alert and oriented x1) - Allied Health Allied health notes reviewed: nursing, social work, case management HEART Score - HEART Score Troponin: Troponin T 0.276 ng/mL (0.00-0.029) H* 02/12/22 04:41 Results - Labs CBC & Chem 7: 02/16/22 11:46 02/18/22 08:19 Labs: Laboratory Last Values WBC 6.9 K/mm3 (4.5-11.0) 02/16/22 11:46 RBC 2.91 M/mm3 (3.65-5.03) L 02/16/22 11:46 Hgb 8.6 gm/dl (10.1-14.3) L 02/16/22 11:46 Hct 26.8 % (30.3-42.9) L 02/16/22 11:46 MCV 92 fl (79-97) 02/16/22 11:46 MCH 30 pg (28-32) 02/16/22 11:46 MCHC 32 % (30-34) 02/16/22 11:46 RDW 16.6 % (13.2-15.2) H 02/16/22 11:46 Plt Count 199 K/mm3 (140-440) 02/16/22 11:46 Lymph % (Auto) 4.2 % (13.4-35.0) L 02/10/22 19:58 [place] % (Auto) 8.4 % (0.0-7.3) H 02/10/22 19:58 Eos % (Auto) 0.0 % (0.0-4.3) 02/10/22 19:58 Baso % (Auto) 0.1 % (0.0-1.8) 02/10/22 19:58 Lymph # (Auto) 0.5 K/mm3 (1.2-5.4) L 02/10/22 19:58 [place] # (Auto) 1.0 K/mm3 (0.0-0.8) H 02/10/22 19:58 Eos # (Auto) 0.0 K/mm3 (0.0-0.4) 02/10/22 19:58 Baso # (Auto) 0.0 K/mm3 (0.0-0.1) 02/10/22 19:58 Add Manual Diff Complete 02/13/22 04:17 Total Counted 100 02/13/22 04:17 Seg Neutrophils % Lead Electrician 02/13/22 04:17 Seg Neuts % (Manual) 95.0 % (40.0-70.0) H 02/13/22 04:17 Band Neutrophils % 0 % 02/13/22 04:17 Lymphocytes % (Manual) 2.0 % (13.4-35.0) L 02/13/22 04:17 Reactive Lymphs % (Man) 0 % 02/13/22 04:17 Monocytes % (Manual) 3.0 % (0.0-7.3) 02/13/22 04:17 Eosinophils % (Manual) 0 % (0.0-4.3) 02/13/22 04:17 Basophils % (Manual) 0 % (0.0-1.8) 02/13/22 04:17 Metamyelocytes % 0 % 02/13/22 04:17 Myelocytes % 0 % 02/13/22 04:17 Promyelocytes % 0 % 02/13/22 04:17 Blast Cells % 0 % 02/13/22 04:17 Nucleated RBC % Not Reportable 02/13/22 04:17 Seg Neutrophils # 10.0 K/mm3 (1.8-7.7) H 02/10/22 19:58 Seg Neutrophils # Man 6.9 K/mm3 (1.8-7.7) 02/13/22 04:17 Band Neutrophils # 0.0 K/mm3 02/13/22 04:17 Abs Lymphs (Manual) 344 cells/uL (850-3900) L 02/11/22 08:08 Lymphocytes # (Manual) 0.1 K/mm3 (1.2-5.4) L 02/13/22 04:17 Abs React Lymphs (Man) 0.0 K/mm3 02/13/22 04:17 Monocytes # (Manual) 0.2 K/mm3 (0.0-0.8) 02/13/22 04:17 Eosinophils # (Manual) 0.0 K/mm3 (0.0-0.4) 02/13/22 04:17 Basophils # (Manual) 0.0 K/mm3 (0.0-0.1) 02/13/22 04:17 Metamyelocytes # 0.0 K/mm3 02/13/22 04:17 Myelocytes # 0.0 K/mm3 02/13/22 04:17 Promyelocytes # 0.0 K/mm3 02/13/22 04:17 Blast Cells # 0.0 K/mm3 02/13/22 04:17 WBC Morphology Not Reportable 02/13/22 04:17 Hypersegmented Neuts Not Reportable 02/13/22 04:17 Hyposegmented Neuts Not Reportable 02/13/22 04:17 Hypogranular Neuts Not Reportable 02/13/22 04:17 Smudge Cells Not Reportable 02/13/22 04:17 Toxic Granulation Not Reportable 02/13/22 04:17 Toxic Vacuolation Not Reportable 02/13/22 04:17 Dohle Bodies Not Reportable 02/13/22 04:17 Pelger-Huet Anomaly Not Reportable 02/13/22 04:17 April Rods Not Reportable 02/13/22 04:17 Platelet Estimate Consistent w auto 02/13/22 04:17 Clumped Platelets Not Reportable 02/13/22 04:17 Plt Clumps, EDTA Not Reportable 02/13/22 04:17 Large Platelets Not Reportable 02/13/22 04:17 Giant Platelets Not Reportable 02/13/22 04:17 Platelet Satelliting Not Reportable 02/13/22 04:17 Plt Morphology Comment Not Reportable 02/13/22 04:17 RBC Morphology Not Reportable 02/13/22 04:17 Dimorphic RBCs Not Reportable 02/13/22 04:17 Polychromasia Not Reportable 02/13/22 04:17 Hypochromasia Not Reportable 02/13/22 04:17 Poikilocytosis Not Reportable 02/13/22 04:17 Anisocytosis Not Reportable 02/13/22 04:17 Microcytosis Not Reportable 02/13/22 04:17 Macrocytosis Not Reportable 02/13/22 04:17 Spherocytes Not Reportable 02/13/22 04:17 Pappenheimer Bodies Not Reportable 02/13/22 04:17 Sickle Cells Not Reportable 02/13/22 04:17 Target Cells Not Reportable 02/13/22 04:17 Tear Drop Cells Not Reportable 02/13/22 04:17 Ovalocytes Not Reportable 02/13/22 04:17 Helmet Cells Not Reportable 02/13/22 04:17 [place] Bodies Not Reportable 02/13/22 04:17 [place] Rings Not Reportable 02/13/22 04:17 [place] Cells Not Reportable 02/13/22 04:17 Bite Cells Not Reportable 02/13/22 04:17 Crenated Cell Not Reportable 02/13/22 04:17 Elliptocytes Not Reportable 02/13/22 04:17 Acanthocytes (Spur) Not Reportable 02/13/22 04:17 Rouleaux Not Reportable 02/13/22 04:17 Hemoglobin C Crystals Not Reportable 02/13/22 04:17 Schistocytes Not Reportable 02/13/22 04:17 Malaria parasites Not Reportable 02/13/22 04:17 Flo Bodies Not Reportable 02/13/22 04:17 Hem Pathologist Commnt No 02/13/22 04:17 PT 15.7 Sec. (12.2-14.9) H 09/18/22 19:58 INR 1.12 (0.87-1.13) 02/10/22 19:58 VBG pH 7.483 (7.320-7.420) H 02/10/22 19:58 Sodium 133 mmol/L (137-145) L 02/18/22 08:19 Potassium 3.6 mmol/L (3.6-5.0) 02/18/22 08:19 Chloride 104.1 mmol/L (98-107) 02/18/22 08:19 Carbon Dioxide 19 mmol/L (22-30) L 02/18/22 08:19 Anion Gap 14 mmol/L 02/18/22 08:19 BUN 31 mg/dL (7-17) H 02/18/22 08:19 Creatinine 0.9 mg/dL (0.6-1.2) 02/18/22 08:19 Estimated GFR > 60 ml/min 02/18/22 08:19 BUN/Creatinine Ratio 34 % 02/18/22 08:19 Glucose 84 mg/dL (65-100) 02/18/22 08:19 POC Glucose 77 mg/dL (70-105) 02/18/22 04:02 Lactic Acid 0.90 mmol/L (0.7-2.0) 02/11/22 01:54 Calcium 9.5 mg/dL (8.4-10.2) 02/18/22 08:19 Phosphorus 2.30 mg/dL (2.5-4.5) L 02/14/22 06:58 Magnesium 1.90 mg/dL (1.7-2.3) 02/14/22 06:58 Total Bilirubin 0.60 mg/dL (0.1-1.2) 02/10/22 19:58 AST 34 units/L (5-40) 02/10/22 19:58 ALT 12 units/L (7-56) 02/10/22 19:58 Alkaline Phosphatase 102 units/L (35-129) 02/10/22 19:58 Total Creatine Kinase 469 units/L (30-135) H 02/10/22 19:58 Troponin T 0.276 ng/mL (0.00-0.029) H* 02/12/22 04:41 Total Protein 8.9 g/dL (6.3-8.2) H 02/10/22 19:58 Albumin 3.2 g/dL (3.9-5) L 02/10/22 19:58 Albumin/Globulin Ratio 0.6 % 02/10/22 19:58 Triglycerides 178 mg/dL (2-149) H 02/10/22 19:58 Cholesterol 130 mg/dL (50-199) 02/10/22 19:58 LDL Cholesterol Direct 50 mg/dL (50-130) 02/10/22 19:58 HDL Cholesterol 36 mg/dL (40-59) L 02/10/22 19:58 Cholesterol/HDL Ratio 3.61 % 02/10/22 19:58 Urine Color Yellow (Yellow) 02/10/22 Unknown Urine Turbidity Clear (Clear) 02/10/22 Unknown Specific [place] (Man) 1.020 (1.003-1.030) 02/10/22 Unknown Ur Protein (Man) 2+ mg/dL (Negative) 02/10/22 Unknown Ur Ketones (Man) 5mg/dl (Negative) 02/10/22 Unknown Ur Nitrite (Man) Negative (Negative) 02/10/22 Unknown Urine Bilirubin (Man) Moderate (Negative) 02/10/22 Unknown Urine Ictotest Negative (Negative) 02/10/22 Unknown Leukocyte Esterase (Man) Negative (Negative) 02/10/22 Unknown Urine WBC (Auto) 7.0 /HPF (0.0-6.0) H 02/10/22 Unknown Urine RBC (Auto) 2.0 /HPF (0.0-6.0) 02/10/22 Unknown U Epithel Cells (Auto) 5.0 /HPF (0-13.0) 02/10/22 Unknown Urine Bacteria (Auto) 3+ /HPF (Negative) 02/10/22 Unknown Urine RBC (Manual) 5+ (Negative) 02/10/22 Unknown Urine Mucus Few /HPF 02/10/22 Unknown Urine Yeast (Budding) 2+ /HPF 02/10/22 Unknown Lymph Enumerat CD4/CD8 0.24 (0.86-5.00) L 02/11/22 08:08 % CD3 Cells 53 % (57-85) L 02/11/22 08:08 Absolute CD3 Count 184 cells/uL (840-3060) L 02/11/22 08:08 % CD4 Cells 10 % (30-61) L 02/11/22 08:08 Absolute CD4 Count 34 cells/uL (490-1740) L 02/11/22 08:08 % CD8 Cells 42 % (12-42) 02/11/22 08:08 Absolute CD8 Count 145 cells/uL (180-1170) L 02/11/22 08:08 % CD19 Cells 10 % (6-29) 02/11/22 08:08 Absolute CD19 Count 35 cells/uL (110-660) L 02/11/22 08:08 Coronavirus (PCR) Positive (Negative) A 02/11/22 08:49 HIV-1 RNA PCR copies/ml 225 Copies/mL H 02/13/22 08:47 HIV-1 RNA (PCR) log 2.35 Log cps/mL H 02/13/22 08:47 Microbiology: Microbiology 02/18/22 06:58 Peripheral/Venous Blood Culture - Preliminary Culture in Progress 02/18/22 05:46 Peripheral/Venous Blood Culture - Preliminary Culture in Progress Bunn/IV: Voiding Method Indwelling Catheter Active Medications - Current Medications Current Medications: Generic Name Dose Route Start Last Admin Trade Name Freq PRN Reason Stop Dose Admin Acetaminophen 650 mg 02/10/22 22:29 Acetaminophen 325 Mg Tab PO Q4H PRN Pain MILD(1-3)/Fever >100.5/BONNER Aspirin 81 mg 02/12/22 10:00 02/18/22 11:21 Aspirin 81 Mg Tab Chew PO 81 mg QDAY MARTINEZ Administration Atorvastatin Calcium 20 mg 02/11/22 22:00 02/17/22 21:58 Atorvastatin 20 Mg Tab PO 20 mg QHS MARTINEZ Administration Darunavir 800 mg 02/11/22 18:00 02/18/22 11:37 Darunavir 800 Mg Tab PO 800 mg QDAY MARTINEZ Administration Dextrose 25 ml 02/18/22 02:16 02/18/22 04:35 Dextrose 50% In Water (25gm) 50 Ml Syringe IV 25 ml Q30MIN PRN Administration Hypoglycemia Protocol Emtricitabine 200 mg 02/11/22 18:00 02/18/22 11:22 Emtricitabine 200 Mg Cap PO 200 mg QDAY MARTINEZ Administration Heparin Sodium (Porcine) 5,000 unit 02/11/22 06:00 02/18/22 14:17 Heparin 5,000 Unit/1 Ml Vial SUB-Q 5,000 unit Q8HR MARTINEZ Administration Hydrochlorothiazide 25 mg 02/11/22 18:00 02/18/22 11:21 Hydrochlorothiazide 25 Mg Tab PO 25 mg QDAY MARTINEZ Administration Dextrose/Sodium Chloride 1,000 mls @ 75 mls/hr 02/11/22 22:00 02/18/22 06:00 D5/0.45ns IV 75 mls/hr DIRECT MARTINEZ Administration Levetiracetam 1,000 mg 02/18/22 11:00 02/18/22 11:36 Levetiracetam 500 Mg/5 Ml Oral Liqd PO 1,000 mg DAILY MARTINEZ Administration Magnesium Hydroxide 30 ml 02/10/22 22:29 Magnesium Hydroxide (Mom) Oral Liqd Udc PO Q4H PRN Constipation Metoprolol Tartrate 25 mg 02/18/22 11:00 02/18/22 11:38 Metoprolol Tartrate 25 Mg Tab PO 25 mg BID MARTINEZ Administration Morphine Sulfate 2 mg 02/10/22 22:29 02/11/22 04:23 Morphine 2 Mg/1 Ml Inj IV 2 mg Q4H PRN Administration Pain, Moderate (4-6) Morphine Sulfate 4 mg 02/10/22 22:29 Morphine 4 Mg/1 Ml Inj IV Q4H PRN Pain , Severe (7-10) Ondansetron HCl 4 mg 02/10/22 22:29 Ondansetron 4 Mg/2 Ml Inj IV Q8H PRN Nausea And Vomiting Ritonavir 100 mg 02/11/22 18:00 02/18/22 11:22 Ritonavir 100 Mg Tab PO 100 mg QDAY MARTINEZ Administration Scopolamine 1 each 02/18/22 10:00 02/18/22 11:21 Scopolamine Transdermal Patch 72 Hr TD 1 each Q72HR MARTINEZ Administration Sodium Chloride 10 ml 02/11/22 10:00 02/18/22 11:22 Sodium Chloride 0.9% 10 Ml Flush Syringe IV 10 ml BID MARTINEZ Administration Sodium Chloride 10 ml 02/10/22 22:29 Sodium Chloride 0.9% 10 Ml Flush Syringe IV PRN PRN LINE FLUSH Tenofovir Disoproxil Fumarate 300 mg 02/11/22 18:00 02/18/22 11:22 Tenofovir 300 Mg Tab PO 300 mg QDAY MARTINEZ Administration Nutrition/Malnutrition Assess - Dietary Evaluation Nutrition/Malnutrition Findings: Nutrition Notes Start: 02/11/22 14:09 Freq: Status: Active Protocol: Document 02/18/22 13:15 CM (Rec: 02/18/22 13:29 CM [id number]) Co-Sign 02/18/22 13:15 WW Nutrition Notes Initial or Follow up Brief Note Current Diagnosis Sepsis,Malnutrition Other Pertinent Diagnosis AMS, HIV, Seizure, L Axilla Wound Current Diet Glucerna @ 40mL/hr Labs/Tests 02/18: Na 134 Cl 108.2 CO2 18 BUN 35 Pertinent Medications 02/18: Atorvastatin Hctz Height 5 ft Weight 63 kg [place] Body Weight (kg) 45.45 BMI 27.1 Weight Status Overweight Subjective/Other Information RD follow-up per protocol. Pt currently receiving Glucerna @ 45mL/hr. Recommend changing tube feed to Osmolite 1.5 @ 45mL/hr ( goal). Pt tolerating TF per RN. Abdomen soft, non-tender, round w/ BS+ per physical assessment. Last BM 02/17. Burn Absent Trauma Absent GI Symptoms None Difficulty In Swallowing Skin Integrity/Comment L-Axila wound Current % PO Other #2 Nutrition Diagnosis Inadequate oral intake Diagnosis Progress(for reassessment Continues documentation) #1 Nutrition Diagnosis Altered nutrition-related laboratory values Comments: 02/18: Na 135, BUN 35 Diagnosis Progress(for reassessment Worsened documentation) Is patient on ventilator? No Is Patient Ambulatory and/or Out of Bed No REE-([facility]-confined to bed) 1462.980 Kcal/Kg value to use for calculation 25 Approximate Energy Requirements Using 1575 kcal/Kg Calculation Used for Recommendations [facility] Additional Notes Protein: 1.0-1.2g/kg ABW; 63- 76g PRO q day Fluids: 1 ml/Kcal or as per MD . Nutrition Intervention Nutrition Support: Modify TF to Osmolite 1.5 @ 45mL/hr. Flush with 135mL q 4hr or per MD. Kcal 1,620 Protein (gm) 68 % RDI: 103%Kcal/100%AA Goal #1 Pt to consume >75% of estimated energy/protein needs through enteral nutrition Goal #2 Pt to maintain current wt status within 2.5% during LOS Follow-Up By: 02/22/22 Additional Comments Monitor enteral nutrition administration, nutrition- related labs, and wt status.
--- NOTE | 2022-02-18 17:13 | Electrocardiograph Report ---
[facility] Test Date: 2022-02-18 Test Time: 09:48:50 Pat Name: ANIA ESPINOZA Department: Room: A386 1 Gender: F Visitor Services Coordinator: OPAL : 1980 Requested By: WESLY SALMON Order Number: [id number] Reading MD: Leida Ward Measurements Intervals [place] Rate: 110 P: 49 MI: 137 QRS: 58 QRSD: 84 T: 22 QT: 309 QTc: 419 Interpretive Statements Sinus tachycardia Otherwise normal ECG Compared to ECG 02/10/2022 21:07:54 No significant change Electronically Signed On 02-18-2022 17:13:02 EDT by Leida Ward
[2022-02-18] MEDS: levETIRAcetam 500 MG TAB PO SCH (20:54)
[2022-02-19] MEDS: HEPARIN 5,000 UNIT/1 ML VIAL SUB-Q SCH ×3 (05:46→22:35)
[2022-02-19 06:24] LABS: BUN/Creatinine Ratio 36; Blood Urea Nitrogen 32 mg/dL (7-17); Calcium 9.2 mg/dL (8.4-10.2); Hemolysis Index 18
--- NOTE | 2022-02-19 12:02 | Progress Note ---
Assessment and Plan Assessment and plan: #Right lower lobe consolidation secondary to aspiration Chest x-ray revealing right lower lobe solid lesion consistent with patient Patient is likely aspirating oral secretions. Ordering scopolamine patch. Holding on antibiotics as the patient may only experience pneumonitis versus pneumonia. Patient becomes hemodynamically stable, antibiotics will be initiated. Continue to monitor #Sepsis secondary to Enterococcus UTI/cystitisresolved #Left axilla wound, chronic -T-max 101.5, patient reported fevers at halfway -Chest x-ray reviewed and UA with pyuria; urine culture pending -Blood cultures collected; coronavirus PCR also ordered -Vancomycin discontinued. Continue cefepime (completes on 02/14/2022) -Will order wound care for left axillary wound -Infectious disease consulted, assistance appreciated #Acute toxic metabolic encephalopathy -Unsure of patient's baseline, she is responsive to her name but unable to provide history -We will continue to monitor #Severe hypokalemiaresolved #Hypomagnesemia-resolved -K 2.7-> 2.9-->2.8--> 3.7--> 3.0-->4.8 -Continue aggressive potassium repletion. -magnesium repleted #End-stage HIV/AIDS -CD4 count unknown -Records reviewed from [place], patient taking ARV -Continue prezista, ritonavir, emtricitabine/tenofovir at home doses -CD4 count collected -ID following, assistance appreciated #moderate calorie malnutrition #poor PO intake -Nutrition consult -if patient continues to have poor intake, may need PEG tube prior to discharge #Seizure disorder -Continue Keppra 1 g daily #Discharge planning -Patient a resident at [facility]. Next of kin contacted (mother Neetu Enamorado [phone]) voicemail left. Plan to discharge back to halfway once clinically stable Social: Multiple attempts at the need trying to contact patient's/mother and were unsuccessful. We will continue to follow the patient's mother but we will consider notifying the police for a welfare check. Unsuccessful welfare check as Neetu Childers address is currently unknown. Patient likely will need to become [place] of the state. Patient is also appropriate as a hospice candidate given the severe deterioration she has experienced from end-stage HIV/AIDS. Disposition Plan: Pending placement Total Time Spent with Patient (Minutes): 30 minutes History Interval history: No acute events overnight. Hospitalist Physical - Constitutional Vitals: Temp Pulse Resp BP Pulse Ox 97.6 F 100 H 18 107/78 99 02/19/22 04:20 02/19/22 04:20 02/19/22 04:20 02/19/22 04:20 02/19/22 04:20 General appearance: Present: no acute distress, cachectic, disheveled - EENT Eyes: Present: PERRL, EOM intact ENT: hearing intact, oropharyngeal erythema, poor dentition, edentulous, other (NG tube in place) - Neck Neck: Present: supple, normal ROM - Respiratory Respiratory effort: normal Respiratory: bilateral: diminished (On 2 L nasal cannula) - Cardiovascular Rhythm: regular Heart Sounds: Present: S1 & S2 - Extremities Extremities: no ischemia, pulses intact, pulses symmetrical, No edema, normal temperature, normal color Peripheral Pulses: within normal limits - Abdominal General gastrointestinal: soft, non-tender, non-distended, normal bowel sounds - Integumentary Integumentary: Present: clear, warm, dry - Psychiatric Psychiatric: other (Unable to fully assess given conditions) - Neurologic Neurologic: CNII-XII intact (Alert and oriented x1) - Allied Health Allied health notes reviewed: nursing HEART Score - HEART Score Troponin: Troponin T 0.276 ng/mL (0.00-0.029) H* 02/12/22 04:41 Results - Labs CBC & Chem 7: 02/16/22 11:46 02/19/22 05:52 Labs: Laboratory Last Values WBC 6.9 K/mm3 (4.5-11.0) 02/16/22 11:46 RBC 2.91 M/mm3 (3.65-5.03) L 02/16/22 11:46 Hgb 8.6 gm/dl (10.1-14.3) L 02/16/22 11:46 Hct 26.8 % (30.3-42.9) L 02/16/22 11:46 MCV 92 fl (79-97) 02/16/22 11:46 MCH 30 pg (28-32) 02/16/22 11:46 MCHC 32 % (30-34) 02/16/22 11:46 RDW 16.6 % (13.2-15.2) H 02/16/22 11:46 Plt Count 199 K/mm3 (140-440) 02/16/22 11:46 Lymph % (Auto) 4.2 % (13.4-35.0) L 02/10/22 19:58 Bowman % (Auto) 8.4 % (0.0-7.3) H 02/10/22 19:58 Eos % (Auto) 0.0 % (0.0-4.3) 02/10/22 19:58 Baso % (Auto) 0.1 % (0.0-1.8) 02/10/22 19:58 Lymph # (Auto) 0.5 K/mm3 (1.2-5.4) L 02/10/22 19:58 Bowman # (Auto) 1.0 K/mm3 (0.0-0.8) H 02/10/22 19:58 Eos # (Auto) 0.0 K/mm3 (0.0-0.4) 02/10/22 19:58 Baso # (Auto) 0.0 K/mm3 (0.0-0.1) 02/10/22 19:58 Add Manual Diff Complete 02/13/22 04:17 Total Counted 100 02/13/22 04:17 Seg Neutrophils % Psychiatric Therapist 02/13/22 04:17 Seg Neuts % (Manual) 95.0 % (40.0-70.0) H 02/13/22 04:17 Band Neutrophils % 0 % 02/13/22 04:17 Lymphocytes % (Manual) 2.0 % (13.4-35.0) L 02/13/22 04:17 Reactive Lymphs % (Man) 0 % 02/13/22 04:17 Monocytes % (Manual) 3.0 % (0.0-7.3) 02/13/22 04:17 Eosinophils % (Manual) 0 % (0.0-4.3) 02/13/22 04:17 Basophils % (Manual) 0 % (0.0-1.8) 02/13/22 04:17 Metamyelocytes % 0 % 02/13/22 04:17 Myelocytes % 0 % 02/13/22 04:17 Promyelocytes % 0 % 02/13/22 04:17 Blast Cells % 0 % 02/13/22 04:17 Nucleated RBC % Not Reportable 02/13/22 04:17 Seg Neutrophils # 10.0 K/mm3 (1.8-7.7) H 02/10/22 19:58 Seg Neutrophils # Man 6.9 K/mm3 (1.8-7.7) 02/13/22 04:17 Band Neutrophils # 0.0 K/mm3 02/13/22 04:17 Abs Lymphs (Manual) 344 cells/uL (850-3900) L 02/11/22 08:08 Lymphocytes # (Manual) 0.1 K/mm3 (1.2-5.4) L 02/13/22 04:17 Abs React Lymphs (Man) 0.0 K/mm3 02/13/22 04:17 Monocytes # (Manual) 0.2 K/mm3 (0.0-0.8) 02/13/22 04:17 Eosinophils # (Manual) 0.0 K/mm3 (0.0-0.4) 02/13/22 04:17 Basophils # (Manual) 0.0 K/mm3 (0.0-0.1) 02/13/22 04:17 Metamyelocytes # 0.0 K/mm3 02/13/22 04:17 Myelocytes # 0.0 K/mm3 02/13/22 04:17 Promyelocytes # 0.0 K/mm3 02/13/22 04:17 Blast Cells # 0.0 K/mm3 02/13/22 04:17 WBC Morphology Not Reportable 02/13/22 04:17 Hypersegmented Neuts Not Reportable 02/13/22 04:17 Hyposegmented Neuts Not Reportable 02/13/22 04:17 Hypogranular Neuts Not Reportable 02/13/22 04:17 Smudge Cells Not Reportable 02/13/22 04:17 Toxic Granulation Not Reportable 02/13/22 04:17 Toxic Vacuolation Not Reportable 02/13/22 04:17 Dohle Bodies Not Reportable 02/13/22 04:17 Pelger-Huet Anomaly Not Reportable 02/13/22 04:17 April Rods Not Reportable 02/13/22 04:17 Platelet Estimate Consistent w auto 02/13/22 04:17 Clumped Platelets Not Reportable 02/13/22 04:17 Plt Clumps, EDTA Not Reportable 02/13/22 04:17 Large Platelets Not Reportable 02/13/22 04:17 Giant Platelets Not Reportable 02/13/22 04:17 Platelet Satelliting Not Reportable 02/13/22 04:17 Plt Morphology Comment Not Reportable 02/13/22 04:17 RBC Morphology Not Reportable 02/13/22 04:17 Dimorphic RBCs Not Reportable 02/13/22 04:17 Polychromasia Not Reportable 02/13/22 04:17 Hypochromasia Not Reportable 02/13/22 04:17 Poikilocytosis Not Reportable 02/13/22 04:17 Anisocytosis Not Reportable 02/13/22 04:17 Microcytosis Not Reportable 02/13/22 04:17 Macrocytosis Not Reportable 02/13/22 04:17 Spherocytes Not Reportable 02/13/22 04:17 Pappenheimer Bodies Not Reportable 02/13/22 04:17 Sickle Cells Not Reportable 02/13/22 04:17 Target Cells Not Reportable 02/13/22 04:17 Tear Drop Cells Not Reportable 02/13/22 04:17 Ovalocytes Not Reportable 02/13/22 04:17 Helmet Cells Not Reportable 02/13/22 04:17 [place] Bodies Not Reportable 02/13/22 04:17 [place] Rings Not Reportable 02/13/22 04:17 Jackson Cells Not Reportable 02/13/22 04:17 Bite Cells Not Reportable 02/13/22 04:17 Crenated Cell Not Reportable 02/13/22 04:17 Elliptocytes Not Reportable 02/13/22 04:17 Acanthocytes (Spur) Not Reportable 02/13/22 04:17 Rouleaux Not Reportable 02/13/22 04:17 Hemoglobin C Crystals Not Reportable 02/13/22 04:17 Schistocytes Not Reportable 02/13/22 04:17 Malaria parasites Not Reportable 02/13/22 04:17 Flo Bodies Not Reportable 02/13/22 04:17 Hem Pathologist Commnt No 02/13/22 04:17 PT 15.7 Sec. (12.2-14.9) H 02/10/22 19:58 INR 1.12 (0.87-1.13) 02/10/22 19:58 VBG pH 7.483 (7.320-7.420) H 02/10/22 19:58 Sodium 134 mmol/L (137-145) L 02/19/22 05:52 Potassium 3.9 mmol/L (3.6-5.0) 02/19/22 05:52 Chloride 105.0 mmol/L (98-107) 02/19/22 05:52 Carbon Dioxide 19 mmol/L (22-30) L 02/19/22 05:52 Anion Gap 14 mmol/L 02/19/22 05:52 BUN 32 mg/dL (7-17) H 02/19/22 05:52 Creatinine 0.9 mg/dL (0.6-1.2) 02/19/22 05:52 Estimated GFR > 60 ml/min 02/19/22 05:52 BUN/Creatinine Ratio 36 % 02/19/22 05:52 Glucose 108 mg/dL (65-100) H 02/19/22 05:52 POC Glucose 125 mg/dL (70-105) H 02/18/22 16:50 Lactic Acid 0.90 mmol/L (0.7-2.0) 02/11/22 01:54 Calcium 9.2 mg/dL (8.4-10.2) 02/19/22 05:52 Phosphorus 2.30 mg/dL (2.5-4.5) L 02/14/22 06:58 Magnesium 1.90 mg/dL (1.7-2.3) 02/14/22 06:58 Total Bilirubin 0.60 mg/dL (0.1-1.2) 02/10/22 19:58 AST 34 units/L (5-40) 02/10/22 19:58 ALT 12 units/L (7-56) 02/10/22 19:58 Alkaline Phosphatase 102 units/L (35-129) 02/10/22 19:58 Total Creatine Kinase 469 units/L (30-135) H 02/10/22 19:58 Troponin T 0.276 ng/mL (0.00-0.029) H* 02/12/22 04:41 Total Protein 8.9 g/dL (6.3-8.2) H 02/10/22 19:58 Albumin 3.2 g/dL (3.9-5) L 02/10/22 19:58 Albumin/Globulin Ratio 0.6 % 02/10/22 19:58 Triglycerides 178 mg/dL (2-149) H 02/10/22 19:58 Cholesterol 130 mg/dL (50-199) 02/10/22 19:58 LDL Cholesterol Direct 50 mg/dL (50-130) 02/10/22 19:58 HDL Cholesterol 36 mg/dL (40-59) L 02/10/22 19:58 Cholesterol/HDL Ratio 3.61 % 02/10/22 19:58 Urine Color Yellow (Yellow) 02/10/22 Unknown Urine Turbidity Clear (Clear) 02/10/22 Unknown Specific [place] (Man) 1.020 (1.003-1.030) 02/10/22 Unknown Ur Protein (Man) 2+ mg/dL (Negative) 02/10/22 Unknown Ur Ketones (Man) 5mg/dl (Negative) 02/10/22 Unknown Ur Nitrite (Man) Negative (Negative) 02/10/22 Unknown Urine Bilirubin (Man) Moderate (Negative) 02/10/22 Unknown Urine Ictotest Negative (Negative) 02/10/22 Unknown Leukocyte Esterase (Man) Negative (Negative) 02/10/22 Unknown Urine WBC (Auto) 7.0 /HPF (0.0-6.0) H 02/10/22 Unknown Urine RBC (Auto) 2.0 /HPF (0.0-6.0) 02/10/22 Unknown U Epithel Cells (Auto) 5.0 /HPF (0-13.0) 02/10/22 Unknown Urine Bacteria (Auto) 3+ /HPF (Negative) 02/10/22 Unknown Urine RBC (Manual) 5+ (Negative) 02/10/22 Unknown Urine Mucus Few /HPF 02/10/22 Unknown Urine Yeast (Budding) 2+ /HPF 02/10/22 Unknown Lymph Enumerat CD4/CD8 0.24 (0.86-5.00) L 02/11/22 08:08 % CD3 Cells 53 % (57-85) L 02/11/22 08:08 Absolute CD3 Count 184 cells/uL (840-3060) L 02/11/22 08:08 % CD4 Cells 10 % (30-61) L 02/11/22 08:08 Absolute CD4 Count 34 cells/uL (490-1740) L 02/11/22 08:08 % CD8 Cells 42 % (12-42) 02/11/22 08:08 Absolute CD8 Count 145 cells/uL (180-1170) L 02/11/22 08:08 % CD19 Cells 10 % (6-29) 02/11/22 08:08 Absolute CD19 Count 35 cells/uL (110-660) L 02/11/22 08:08 Coronavirus (PCR) Positive (Negative) A 02/11/22 08:49 HIV-1 RNA PCR copies/ml 225 Copies/mL H 02/13/22 08:47 HIV-1 RNA (PCR) log 2.35 Log cps/mL H 02/13/22 08:47 Microbiology: Microbiology 02/18/22 06:58 Peripheral/Venous Blood Culture - Preliminary NO GROWTH AFTER 24 HOURS 02/18/22 05:46 Peripheral/Venous Blood Culture - Preliminary NO GROWTH AFTER 24 HOURS 02/10/22 21:39 Urine,Clean Catch Urine Culture - Final Enterococcus Faecium Bunn/IV: Voiding Method External Female Catheter Active Medications - Current Medications Current Medications: Generic Name Dose Route Start Last Admin Trade Name Freq PRN Reason Stop Dose Admin Acetaminophen 650 mg 02/10/22 22:29 Acetaminophen 325 Mg Tab PO Q4H PRN Pain MILD(1-3)/Fever >100.5/BONNER Aspirin 81 mg 02/12/22 10:00 02/18/22 11:21 Aspirin 81 Mg Tab Chew PO 81 mg QDAY MARTINEZ Administration Atorvastatin Calcium 20 mg 02/11/22 22:00 02/18/22 22:05 Atorvastatin 20 Mg Tab PO 20 mg QHS MARTINEZ Administration Darunavir 800 mg 02/11/22 18:00 02/18/22 11:37 Darunavir 800 Mg Tab PO 800 mg QDAY MARTINEZ Administration Dextrose 25 ml 02/18/22 02:16 02/18/22 04:35 Dextrose 50% In Water (25gm) 50 Ml Syringe IV 25 ml Q30MIN PRN Administration Hypoglycemia Protocol Emtricitabine 200 mg 02/11/22 18:00 02/18/22 11:22 Emtricitabine 200 Mg Cap PO 200 mg QDAY MARTINEZ Administration Heparin Sodium (Porcine) 5,000 unit 02/11/22 06:00 02/19/22 05:46 Heparin 5,000 Unit/1 Ml Vial SUB-Q 5,000 unit Q8HR MARTINEZ Administration Hydrochlorothiazide 25 mg 02/11/22 18:00 02/18/22 11:21 Hydrochlorothiazide 25 Mg Tab PO 25 mg QDAY MARTINEZ Administration Dextrose/Sodium Chloride 1,000 mls @ 75 mls/hr 02/11/22 22:00 02/18/22 22:26 D5/0.45ns IV 75 mls/hr DIRECT MARTINEZ Administration Levetiracetam 1,000 mg 02/18/22 11:00 02/18/22 11:36 Levetiracetam 500 Mg/5 Ml Oral Liqd PO 1,000 mg DAILY MARTINEZ Administration Magnesium Hydroxide 30 ml 02/10/22 22:29 Magnesium Hydroxide (Mom) Oral Liqd Udc PO Q4H PRN Constipation Metoprolol Tartrate 25 mg 02/18/22 11:00 02/18/22 22:06 Metoprolol Tartrate 25 Mg Tab PO 25 mg BID MARTINEZ Administration Morphine Sulfate 2 mg 02/10/22 22:29 02/11/22 04:23 Morphine 2 Mg/1 Ml Inj IV 2 mg Q4H PRN Administration Pain, Moderate (4-6) Morphine Sulfate 4 mg 02/10/22 22:29 Morphine 4 Mg/1 Ml Inj IV Q4H PRN Pain , Severe (7-10) Ondansetron HCl 4 mg 02/10/22 22:29 Ondansetron 4 Mg/2 Ml Inj IV Q8H PRN Nausea And Vomiting Ritonavir 100 mg 02/11/22 18:00 02/18/22 11:22 Ritonavir 100 Mg Tab PO 100 mg QDAY MARTINEZ Administration Scopolamine 1 each 02/18/22 10:00 02/18/22 11:21 Scopolamine Transdermal Patch 72 Hr TD 1 each Q72HR MARTINEZ Administration Sodium Chloride 10 ml 02/11/22 10:00 02/18/22 22:06 Sodium Chloride 0.9% 10 Ml Flush Syringe IV 10 ml BID MARTINEZ Administration Sodium Chloride 10 ml 02/10/22 22:29 Sodium Chloride 0.9% 10 Ml Flush Syringe IV PRN PRN LINE FLUSH Tenofovir Disoproxil Fumarate 300 mg 02/11/22 18:00 02/18/22 11:22 Tenofovir 300 Mg Tab PO 300 mg QDAY MARTINEZ Administration Nutrition/Malnutrition Assess - Dietary Evaluation Nutrition/Malnutrition Findings: Nutrition Notes Start: 02/11/22 14:09 Freq: Status: Active Protocol: Document 02/18/22 13:15 CM (Rec: 02/18/22 13:29 CM [id number]) Co-Sign 02/18/22 13:15 WW Nutrition Notes Initial or Follow up Brief Note Current Diagnosis Sepsis,Malnutrition Other Pertinent Diagnosis AMS, HIV, Seizure, L Axilla Wound Current Diet Glucerna @ 40mL/hr Labs/Tests 02/18: Na 134 Cl 108.2 CO2 18 BUN 35 Pertinent Medications 02/18: Atorvastatin Hctz Height 5 ft Weight 63 kg [place] Body Weight (kg) 45.45 BMI 27.1 Weight Status Overweight Subjective/Other Information RD follow-up per protocol. Pt currently receiving Glucerna @ 45mL/hr. Recommend changing tube feed to Osmolite 1.5 @ 45mL/hr ( goal). Pt tolerating TF per RN. Abdomen soft, non-tender, round w/ BS+ per physical assessment. Last BM 02/17. Burn Absent Trauma Absent GI Symptoms None Difficulty In Swallowing Skin Integrity/Comment L-Axila wound Current % PO Other #2 Nutrition Diagnosis Inadequate oral intake Diagnosis Progress(for reassessment Continues documentation) #1 Nutrition Diagnosis Altered nutrition-related laboratory values Comments: 02/18: Na 135, BUN 35 Diagnosis Progress(for reassessment Worsened documentation) Is patient on ventilator? No Is Patient Ambulatory and/or Out of Bed No REE-([facility]-confined to bed) 1462.980 Kcal/Kg value to use for calculation 25 Approximate Energy Requirements Using 1575 kcal/Kg Calculation Used for Recommendations [facility] Additional Notes Protein: 1.0-1.2g/kg ABW; 63- 76g PRO q day Fluids: 1 ml/Kcal or as per MD . Nutrition Intervention Nutrition Support: Modify TF to Osmolite 1.5 @ 45mL/hr. Flush with 135mL q 4hr or per MD. Kcal 1,620 Protein (gm) 68 % RDI: 103%Kcal/100%AA Goal #1 Pt to consume >75% of estimated energy/protein needs through enteral nutrition Goal #2 Pt to maintain current wt status within 2.5% during LOS Follow-Up By: 02/22/22 Additional Comments Monitor enteral nutrition administration, nutrition- related labs, and wt status.
[2022-02-19] MEDS: levETIRAcetam 500 MG/5 ML ORAL LIQD PO SCH (12:24)
[2022-02-19] MEDS: hydroCHLOROthiazide 25 MG TAB PO SCH (12:24)
[2022-02-19] MEDS: RITONAVIR 100 MG TAB PO SCH (12:25)
[2022-02-19] MEDS: METOPROLOL TARTRATE 25 MG TAB PO SCH ×2 (12:25→22:46)
[2022-02-19] MEDS: EMTRICITABINE 200 MG CAP PO SCH (12:25)
[2022-02-19] MEDS: TENOFOVIR 300 MG TAB PO SCH ×2 (12:25→18:28)
[2022-02-19] MEDS: ASPIRIN 81 MG TAB CHEW PO SCH (12:25)
[2022-02-19] MEDS: DARUNAVIR 800 MG TAB PO SCH (12:26)
[2022-02-20] MEDS: D5W/0.45% NACL 1,000 ML IV SCH (02:26)
[2022-02-20 05:37] LABS: Hematocrit 20.4 % (30.3-42.9); Hemoglobin 6.8 gm/dl (10.1-14.3); Mean Corpuscular HGB Conc 33 % (30-34); Mean Corpuscular Volume 89 fl (79-97); Platelet Count 124 K/mm3 (140-440); Red Cell Distribution Width 17.1 % (13.2-15.2)
[2022-02-20] MEDS ORDERED: SODIUM CHLORIDE 0.9% 250ML 250 ML IV ONE (05:49)
[2022-02-20] MEDS: HEPARIN 5,000 UNIT/1 ML VIAL SUB-Q SCH ×3 (06:41→21:56)
[2022-02-20] MEDS: levETIRAcetam 500 MG/5 ML ORAL LIQD PO SCH (12:32)
[2022-02-20] MEDS: ASPIRIN 81 MG TAB CHEW PO SCH (12:33)
[2022-02-20] MEDS: hydroCHLOROthiazide 25 MG TAB PO SCH (12:35)
[2022-02-20] MEDS: METOPROLOL TARTRATE 25 MG TAB PO SCH ×2 (12:35→21:55)
[2022-02-20] MEDS: EMTRICITABINE 200 MG CAP PO SCH (12:38)
[2022-02-20] MEDS: DARUNAVIR 800 MG TAB PO SCH (12:38)
[2022-02-20] MEDS: RITONAVIR 100 MG TAB PO SCH (12:39)
[2022-02-20] MEDS: TENOFOVIR 300 MG TAB PO SCH (12:39)
[2022-02-20 14:46] LABS: Hepatitis B Surface Antigen Reactive (Negative); Hepatitis C Virus Antibody Non-Reactive (NonReactive)
--- NOTE | 2022-02-20 18:02 | Progress Note ---
Assessment and Plan Assessment and plan: 41 year year female with known history of HIV -CD4 count unknown resident of a nursing brought in to the emergency room today for evaluation of changes in mental status. Most of the history was obtained from the ER staff as patient is unable to give any history at this time. Patient was said to have been having a fever in the [facility]. There has been no history of fall, no nausea or vomiting, no diarrhea, no hematuria or dysuria. Upon arrival in the emergency room patient was found to be tachycardic with heart rate in the 140s. Work-up in the emergency room today, lab reveals mild leukocytosis of 11.5, sodium of 146, hypokalemia of 2.7, BUN of 82 and creatinine of 1.8. Troponin 0.375. Urinalysis was significant for few WBCs and 3+ bacteria. Chest x-ray shows right lung infiltrate possibly representing developing pneumonia. #Right lower lobe consolidation secondary to aspiration Chest x-ray revealing right lower lobe solid lesion consistent with patient Patient is likely aspirating oral secretions. Ordering scopolamine patch. Holding on antibiotics as the patient may only experience pneumonitis versus pneumonia. Patient becomes hemodynamically stable, antibiotics will be initiated. Continue to monitor #Sepsis secondary to Enterococcus UTI/cystitisresolved #Left axilla wound, chronic -T-max 101.5, patient reported fevers at [facility] -Chest x-ray reviewed and UA with pyuria; urine culture pending -Blood cultures collected; coronavirus PCR also ordered -Vancomycin discontinued. Continue cefepime (completes on 02/14/2022) -Will order wound care for left axillary wound -Infectious disease consulted, assistance appreciated #Acute toxic metabolic encephalopathy -Unsure of patient's baseline, initially she was responsive to her name but unable to provide history -Etiology appears to be UTI/sepsis and dehydration -Improving, currently fairly alert and able to answer simple questions. -We will continue to monitor LEAH due to dehydration/hypotension -Resolved with IV fluids/hydration #Severe hypokalemiaresolved #Hypomagnesemia-resolved -K 2.7-> 2.9-->2.8--> 3.7--> 3.0-->4.8 -Continue aggressive potassium repletion. -magnesium repleted #End-stage HIV/AIDS -Absolute CD4 count 34 -Records reviewed from [place], patient taking ARV -Continue prezista, ritonavir, emtricitabine/tenofovir at home doses -ID following, assistance appreciated #moderate calorie malnutrition #poor PO intake -Nutrition consult -if patient continues to have poor intake, receiving tube feeds via Dobbhoff, may need PEG tube prior to discharge -Patient wants to eat, consulted yesterday for swallowing evaluation. Bilateral ischemic appearing lesions in feet bilaterally Stage I/II Continue padding #Seizure disorder -Continue Keppra 1 g daily #Discharge planning -Patient a resident at [facility]. Next of kin contacted (mother Neetu Enamorado [phone]) voicemail left. Plan to discharge back to [facility] once clinically stable Social: Multiple attempts at the need trying to contact patient's/mother and were unsuccessful. We will continue to follow the patient's mother but we will consider notifying the police for a welfare check. Unsuccessful welfare check as Neetu Childers address is currently unknown. Patient likely will need to become [place] of the state. Patient is also appropri ate as a hospice candidate given the severe deterioration she has experienced from end-stage HIV/AIDS. Disposition Plan: Pending further improvement, likely needs placement Discussed with the patient and the nursing staff. History Interval history: Mental status improving, fairly alert and answering questions appropriately, remains on tube feeds and restrained. Wants to eat and ordered ST evaluation. Afebrile, BP remains soft, received IV fluid bolus. Urine output 1400 mL. Hospitalist Physical - Constitutional Vitals: Temp Pulse Resp BP Pulse Ox 98.1 F 78 16 96/65 95 02/20/22 12:01 02/20/22 12:35 02/20/22 12:01 02/20/22 12:35 02/20/22 12:01 General appearance: Present: no acute distress, cachectic, disheveled, other (Ill kempt) - EENT Eyes: Present: PERRL ENT: other (All mucosa dry, Dobbhoff tube in place) - Neck Neck: Present: supple - Respiratory Respiratory effort: normal Respiratory: bilateral: diminished - Cardiovascular Rhythm: regular - Extremities Extremities: No edema Extremity abnormal: other (Stage I/II ischemic appearing lesions in feet bilaterally.) - Abdominal General gastrointestinal: soft, non-tender, non-distended, normal bowel sounds - Psychiatric Psychiatric: other (Anxious) - Neurologic Neurologic: no focal deficits, moves all extremities HEART Score - HEART Score Troponin: Troponin T 0.276 ng/mL (0.00-0.029) H* 02/12/22 04:41 Results - Labs CBC & Chem 7: 02/20/22 04:37 02/19/22 05:52 Labs: Laboratory Last Values WBC 3.8 K/mm3 (4.5-11.0) L 02/20/22 04:37 RBC 2.30 M/mm3 (3.65-5.03) L 02/20/22 04:37 Hgb 6.8 gm/dl (10.1-14.3) L 02/20/22 04:37 Hct 20.4 % (30.3-42.9) L 02/20/22 04:37 MCV 89 fl (79-97) 02/20/22 04:37 MCH 29 pg (28-32) 02/20/22 04:37 MCHC 33 % (30-34) 02/20/22 04:37 RDW 17.1 % (13.2-15.2) H 02/20/22 04:37 Plt Count 124 K/mm3 (140-440) L 02/20/22 04:37 Lymph % (Auto) 4.2 % (13.4-35.0) L 02/10/22 19:58 [place] % (Auto) 8.4 % (0.0-7.3) H 02/10/22 19:58 Eos % (Auto) 0.0 % (0.0-4.3) 02/10/22 19:58 Baso % (Auto) 0.1 % (0.0-1.8) 02/10/22 19:58 Lymph # (Auto) 0.5 K/mm3 (1.2-5.4) L 02/10/22 19:58 [place] # (Auto) 1.0 K/mm3 (0.0-0.8) H 02/10/22 19:58 Eos # (Auto) 0.0 K/mm3 (0.0-0.4) 02/10/22 19:58 Baso # (Auto) 0.0 K/mm3 (0.0-0.1) 02/10/22 19:58 Add Manual Diff Complete 02/13/22 04:17 Total Counted 100 02/13/22 04:17 Seg Neutrophils % Manager Technical Sales 02/13/22 04:17 Seg Neuts % (Manual) 95.0 % (40.0-70.0) H 02/13/22 04:17 Band Neutrophils % 0 % 02/13/22 04:17 Lymphocytes % (Manual) 2.0 % (13.4-35.0) L 02/13/22 04:17 Reactive Lymphs % (Man) 0 % 02/13/22 04:17 Monocytes % (Manual) 3.0 % (0.0-7.3) 02/13/22 04:17 Eosinophils % (Manual) 0 % (0.0-4.3) 02/13/22 04:17 Basophils % (Manual) 0 % (0.0-1.8) 02/13/22 04:17 Metamyelocytes % 0 % 02/13/22 04:17 Myelocytes % 0 % 02/13/22 04:17 Promyelocytes % 0 % 02/13/22 04:17 Blast Cells % 0 % 02/13/22 04:17 Nucleated RBC % Not Reportable 02/13/22 04:17 Seg Neutrophils # 10.0 K/mm3 (1.8-7.7) H 02/10/22 19:58 Seg Neutrophils # Man 6.9 K/mm3 (1.8-7.7) 02/13/22 04:17 Band Neutrophils # 0.0 K/mm3 02/13/22 04:17 Abs Lymphs (Manual) 344 cells/uL (850-3900) L 02/11/22 08:08 Lymphocytes # (Manual) 0.1 K/mm3 (1.2-5.4) L 02/13/22 04:17 Abs React Lymphs (Man) 0.0 K/mm3 02/13/22 04:17 Monocytes # (Manual) 0.2 K/mm3 (0.0-0.8) 02/13/22 04:17 Eosinophils # (Manual) 0.0 K/mm3 (0.0-0.4) 02/13/22 04:17 Basophils # (Manual) 0.0 K/mm3 (0.0-0.1) 02/13/22 04:17 Metamyelocytes # 0.0 K/mm3 02/13/22 04:17 Myelocytes # 0.0 K/mm3 02/13/22 04:17 Promyelocytes # 0.0 K/mm3 02/13/22 04:17 Blast Cells # 0.0 K/mm3 02/13/22 04:17 WBC Morphology Not Reportable 02/13/22 04:17 Hypersegmented Neuts Not Reportable 02/13/22 04:17 Hyposegmented Neuts Not Reportable 02/13/22 04:17 Hypogranular Neuts Not Reportable 02/13/22 04:17 Smudge Cells Not Reportable 02/13/22 04:17 Toxic Granulation Not Reportable 02/13/22 04:17 Toxic Vacuolation Not Reportable 02/13/22 04:17 Dohle Bodies Not Reportable 02/13/22 04:17 Pelger-Huet Anomaly Not Reportable 02/13/22 04:17 April Rods Not Reportable 02/13/22 04:17 Platelet Estimate Consistent w auto 02/13/22 04:17 Clumped Platelets Not Reportable 02/13/22 04:17 Plt Clumps, EDTA Not Reportable 02/13/22 04:17 Large Platelets Not Reportable 02/13/22 04:17 Giant Platelets Not Reportable 02/13/22 04:17 Platelet Satelliting Not Reportable 02/13/22 04:17 Plt Morphology Comment Not Reportable 02/13/22 04:17 RBC Morphology Not Reportable 02/13/22 04:17 Dimorphic RBCs Not Reportable 02/13/22 04:17 Polychromasia Not Reportable 02/13/22 04:17 Hypochromasia Not Reportable 02/13/22 04:17 Poikilocytosis Not Reportable 02/13/22 04:17 Anisocytosis Not Reportable 02/13/22 04:17 Microcytosis Not Reportable 02/13/22 04:17 Macrocytosis Not Reportable 02/13/22 04:17 Spherocytes Not Reportable 02/13/22 04:17 Pappenheimer Bodies Not Reportable 02/13/22 04:17 Sickle Cells Not Reportable 02/13/22 04:17 Target Cells Not Reportable 02/13/22 04:17 Tear Drop Cells Not Reportable 02/13/22 04:17 Ovalocytes Not Reportable 02/13/22 04:17 Helmet Cells Not Reportable 02/13/22 04:17 [place] Bodies Not Reportable 02/13/22 04:17 [place] Rings Not Reportable 02/13/22 04:17 [place] Cells Not Reportable 02/13/22 04:17 Bite Cells Not Reportable 02/13/22 04:17 Crenated Cell Not Reportable 02/13/22 04:17 Elliptocytes Not Reportable 02/13/22 04:17 Acanthocytes (Spur) Not Reportable 02/13/22 04:17 Rouleaux Not Reportable 02/13/22 04:17 Hemoglobin C Crystals Not Reportable 02/13/22 04:17 Schistocytes Not Reportable 02/13/22 04:17 Malaria parasites Not Reportable 02/13/22 04:17 Flo Bodies Not Reportable 02/13/22 04:17 Hem Pathologist Commnt No 02/13/22 04:17 PT 15.7 Sec. (12.2-14.9) H 02/10/22 19:58 INR 1.12 (0.87-1.13) 02/10/22 19:58 VBG pH 7.483 (7.320-7.420) H 02/10/22 19:58 Sodium 134 mmol/L (137-145) L 02/19/22 05:52 Potassium 3.9 mmol/L (3.6-5.0) 02/19/22 05:52 Chloride 105.0 mmol/L (98-107) 02/19/22 05:52 Carbon Dioxide 19 mmol/L (22-30) L 02/19/22 05:52 Anion Gap 14 mmol/L 02/19/22 05:52 BUN 32 mg/dL (7-17) H 02/19/22 05:52 Creatinine 0.9 mg/dL (0.6-1.2) 02/19/22 05:52 Estimated GFR > 60 ml/min 02/19/22 05:52 BUN/Creatinine Ratio 36 % 02/19/22 05:52 Glucose 108 mg/dL (65-100) H 02/19/22 05:52 POC Glucose 117 mg/dL (70-105) H 02/20/22 16:08 Lactic Acid 0.90 mmol/L (0.7-2.0) 02/11/22 01:54 Calcium 9.2 mg/dL (8.4-10.2) 02/19/22 05:52 Phosphorus 2.30 mg/dL (2.5-4.5) L 02/14/22 06:58 Magnesium 1.90 mg/dL (1.7-2.3) 02/14/22 06:58 Total Bilirubin 0.60 mg/dL (0.1-1.2) 02/10/22 19:58 AST 34 units/L (5-40) 02/10/22 19:58 ALT 12 units/L (7-56) 02/10/22 19:58 Alkaline Phosphatase 102 units/L (35-129) 02/10/22 19:58 Total Creatine Kinase 469 units/L (30-135) H 02/10/22 19:58 Troponin T 0.276 ng/mL (0.00-0.029) H* 02/12/22 04:41 Total Protein 8.9 g/dL (6.3-8.2) H 02/10/22 19:58 Albumin 3.2 g/dL (3.9-5) L 02/10/22 19:58 Albumin/Globulin Ratio 0.6 % 02/10/22 19:58 Triglycerides 178 mg/dL (2-149) H 02/10/22 19:58 Cholesterol 130 mg/dL (50-199) 02/10/22 19:58 LDL Cholesterol Direct 50 mg/dL (50-130) 02/10/22 19:58 HDL Cholesterol 36 mg/dL (40-59) L 02/10/22 19:58 Cholesterol/HDL Ratio 3.61 % 02/10/22 19:58 Urine Color Yellow (Yellow) 02/10/22 Unknown Urine Turbidity Clear (Clear) 02/10/22 Unknown Specific [place] (Man) 1.020 (1.003-1.030) 02/10/22 Unknown Ur Protein (Man) 2+ mg/dL (Negative) 02/10/22 Unknown Ur Ketones (Man) 5mg/dl (Negative) 02/10/22 Unknown Ur Nitrite (Man) Negative (Negative) 02/10/22 Unknown Urine Bilirubin (Man) Moderate (Negative) 02/10/22 Unknown Urine Ictotest Negative (Negative) 02/10/22 Unknown Leukocyte Esterase (Man) Negative (Negative) 02/10/22 Unknown Urine WBC (Auto) 7.0 /HPF (0.0-6.0) H 02/10/22 Unknown Urine RBC (Auto) 2.0 /HPF (0.0-6.0) 02/10/22 Unknown U Epithel Cells (Auto) 5.0 /HPF (0-13.0) 02/10/22 Unknown Urine Bacteria (Auto) 3+ /HPF (Negative) 02/10/22 Unknown Urine RBC (Manual) 5+ (Negative) 02/10/22 Unknown Urine Mucus Few /HPF 02/10/22 Unknown Urine Yeast (Budding) 2+ /HPF 02/10/22 Unknown Lymph Enumerat CD4/CD8 0.24 (0.86-5.00) L 02/11/22 08:08 % CD3 Cells 53 % (57-85) L 02/11/22 08:08 Absolute CD3 Count 184 cells/uL (840-3060) L 02/11/22 08:08 % CD4 Cells 10 % (30-61) L 02/11/22 08:08 Absolute CD4 Count 34 cells/uL (490-1740) L 02/11/22 08:08 % CD8 Cells 42 % (12-42) 02/11/22 08:08 Absolute CD8 Count 145 cells/uL (180-1170) L 02/11/22 08:08 % CD19 Cells 10 % (6-29) 02/11/22 08:08 Absolute CD19 Count 35 cells/uL (110-660) L 02/11/22 08:08 Coronavirus (PCR) Positive (Negative) A 02/19/22 13:20 Hepatitis A IgM Ab Non-reactive (NonReactive) 02/20/22 12:22 Hep Bs Antigen Reactive (Negative) 02/20/22 12:22 Hep B Core IgM Ab Non-reactive (NonReactive) 02/20/22 12:22 Hepatitis C Antibody Non-reactive (NonReactive) 02/20/22 12:22 HIV-1 RNA PCR copies/ml 225 Copies/mL H 02/13/22 08:47 HIV-1 RNA (PCR) log 2.35 Log cps/mL H 02/13/22 08:47 Microbiology: Microbiology 02/18/22 06:58 Peripheral/Venous Blood Culture - Preliminary NO GROWTH AFTER 48 HOURS 02/18/22 05:46 Peripheral/Venous Blood Culture - Preliminary NO GROWTH AFTER 48 HOURS [place]/IV: Voiding Method External Female Catheter Active Medications - Current Medications Current Medications: Generic Name Dose Route Start Last Admin Trade Name Freq PRN Reason Stop Dose Admin Acetaminophen 650 mg 02/10/22 22:29 Acetaminophen 325 Mg Tab PO Q4H PRN Pain MILD(1-3)/Fever >100.5/BONNER Aspirin 81 mg 02/12/22 10:00 02/20/22 12:33 Aspirin 81 Mg Tab Chew PO 81 mg QDAY MARTINEZ Administration Atorvastatin Calcium 20 mg 02/11/22 22:00 02/19/22 22:35 Atorvastatin 20 Mg Tab PO 20 mg QHS MARTINEZ Administration Darunavir 800 mg 02/11/22 18:00 02/20/22 12:38 Darunavir 800 Mg Tab PO 800 mg QDAY MARTINEZ Administration Dextrose 25 ml 02/18/22 02:16 02/18/22 04:35 Dextrose 50% In Water (25gm) 50 Ml Syringe IV 25 ml Q30MIN PRN Administration Hypoglycemia Protocol Emtricitabine 200 mg 02/11/22 18:00 02/20/22 12:38 Emtricitabine 200 Mg Cap PO 200 mg QDAY MARTINEZ Administration Heparin Sodium (Porcine) 5,000 unit 02/11/22 06:00 02/20/22 06:41 Heparin 5,000 Unit/1 Ml Vial SUB-Q 5,000 unit Q8HR MARTINEZ Administration Hydrochlorothiazide 25 mg 02/11/22 18:00 02/20/22 12:35 Hydrochlorothiazide 25 Mg Tab PO Not Given QDAY MARTINEZ Dextrose/Sodium Chloride 1,000 mls @ 75 mls/hr 02/11/22 22:00 02/20/22 02:26 D5/0.45ns IV 75 mls/hr DIRECT MARTINEZ Administration Levetiracetam 1,000 mg 02/18/22 11:00 02/20/22 12:32 Levetiracetam 500 Mg/5 Ml Oral Liqd PO 1,000 mg DAILY MARTINEZ Administration Magnesium Hydroxide 30 ml 02/10/22 22:29 Magnesium Hydroxide (Mom) Oral Liqd Udc PO Q4H PRN Constipation Metoprolol Tartrate 25 mg 02/18/22 11:00 02/20/22 12:35 Metoprolol Tartrate 25 Mg Tab PO Not Given BID MARTINEZ Morphine Sulfate 2 mg 02/10/22 22:29 02/11/22 04:23 Morphine 2 Mg/1 Ml Inj IV 2 mg Q4H PRN Administration Pain, Moderate (4-6) Morphine Sulfate 4 mg 02/10/22 22:29 Morphine 4 Mg/1 Ml Inj IV Q4H PRN Pain , Severe (7-10) Ondansetron HCl 4 mg 02/10/22 22:29 Ondansetron 4 Mg/2 Ml Inj IV Q8H PRN Nausea And Vomiting Ritonavir 100 mg 02/11/22 18:00 02/20/22 12:39 Ritonavir 100 Mg Tab PO 100 mg QDAY MARTINEZ Administration Scopolamine 1 each 02/18/22 10:00 02/18/22 11:21 Scopolamine Transdermal Patch 72 Hr TD 1 each Q72HR MARTINEZ Administration Sodium Chloride 10 ml 02/11/22 10:00 02/20/22 12:39 Sodium Chloride 0.9% 10 Ml Flush Syringe IV 10 ml BID MARTINEZ Administration Sodium Chloride 10 ml 02/10/22 22:29 Sodium Chloride 0.9% 10 Ml Flush Syringe IV PRN PRN LINE FLUSH Tenofovir Disoproxil Fumarate 300 mg 02/11/22 18:00 02/20/22 12:39 Tenofovir 300 Mg Tab PO 300 mg QDAY MARTINEZ Administration Nutrition/Malnutrition Assess - Dietary Evaluation Nutrition/Malnutrition Findings: Nutrition Notes Start: 02/11/22 14:09 Freq: Status: Active Protocol: Document 02/18/22 13:15 CM (Rec: 02/18/22 13:29 CM [id number]) Co-Sign 02/18/22 13:15 WW Nutrition Notes Initial or Follow up Brief Note Current Diagnosis Sepsis,Malnutrition Other Pertinent Diagnosis AMS, HIV, Seizure, L Axilla Wound Current Diet Glucerna @ 40mL/hr Labs/Tests 02/18: Na 134 Cl 108.2 CO2 18 BUN 35 Pertinent Medications 02/18: Atorvastatin Hctz Height 5 ft Weight 63 kg [place] Body Weight (kg) 45.45 BMI 27.1 Weight Status Overweight Subjective/Other Information RD follow-up per protocol. Pt currently receiving Glucerna @ 45mL/hr. Recommend changing tube feed to Osmolite 1.5 @ 45mL/hr ( goal). Pt tolerating TF per RN. Abdomen soft, non-tender, round w/ BS+ per physical assessment. Last BM 02/17. Burn Absent Trauma Absent GI Symptoms None Difficulty In Swallowing Skin Integrity/Comment L-Axila wound Current % PO Other #2 Nutrition Diagnosis Inadequate oral intake Diagnosis Progress(for reassessment Continues documentation) #1 Nutrition Diagnosis Altered nutrition-related laboratory values Comments: 02/18: Na 135, BUN 35 Diagnosis Progress(for reassessment Worsened documentation) Is patient on ventilator? No Is Patient Ambulatory and/or Out of Bed No REE-([facility]-confined to bed) 1462.980 Kcal/Kg value to use for calculation 25 Approximate Energy Requirements Using 1575 kcal/Kg Calculation Used for Recommendations [facility] Additional Notes Protein: 1.0-1.2g/kg ABW; 63- 76g PRO q day Fluids: 1 ml/Kcal or as per MD . Nutrition Intervention Nutrition Support: Modify TF to Osmolite 1.5 @ 45mL/hr. Flush with 135mL q 4hr or per MD. Kcal 1,620 Protein (gm) 68 % RDI: 103%Kcal/100%AA Goal #1 Pt to consume >75% of estimated energy/protein needs through enteral nutrition Goal #2 Pt to maintain current wt status within 2.5% during LOS Follow-Up By: 02/22/22 Additional Comments Monitor enteral nutrition administration, nutrition- related labs, and wt status.
[2022-02-21 05:21] LABS: Basophils % (Auto) 0.1 % (0.0-1.8); Eosinophils % (Auto) 0.8 % (0.0-4.3); Hematocrit 23.6 % (30.3-42.9); Hemoglobin 7.6 gm/dl (10.1-14.3); Lymphocytes # (Auto) 0.3 K/mm3 (1.2-5.4); Lymphocytes % (Auto) 4.9 % (13.4-35.0); Mean Corpuscular HGB Conc 32 % (30-34); Mean Corpuscular Volume 90 fl (79-97); Monocytes # (Auto) 0.2 K/mm3 (0.0-0.8); Monocytes % (Auto) 4.2 % (0.0-7.3); Platelet Count 142 K/mm3 (140-440); Red Blood Count 2.61 M/mm3 (3.65-5.03); Red Cell Distribution Width 16.9 % (13.2-15.2)
[2022-02-21 06:07] LABS: Alanine Aminotransferase 30 units/L (7-56); BUN/Creatinine Ratio 38; Blood Urea Nitrogen 30 mg/dL (7-17); Calcium 8.7 mg/dL (8.4-10.2); Hemolysis Index 7
[2022-02-21] MEDS: DEXTROSE 50% IN WATER (25GM) 50 ML SYRINGE IV PRN (06:31)
[2022-02-21] MEDS: HEPARIN 5,000 UNIT/1 ML VIAL SUB-Q SCH ×3 (06:31→22:24)
[2022-02-21] MEDS: hydroCHLOROthiazide 25 MG TAB PO SCH (12:06)
--- NOTE | 2022-02-21 12:52 | Fluoroscopy Report ---
MODIFIED BARIUM SWALLOW INDICATION: DYSPHAGIA TECHNIQUE: Swallowing was evaluated in the lateral position under direct fluoroscopy. FINDINGS: The patient was evaluated with thin liquids, puree and semisolid consistencies. Deglutition was normal. No penetration or aspiration was witnessed. IMPRESSION: Unremarkable exam. Fluoroscopic time: 0.6 minutes Number of fluoroscopic images: 2 Signer Name: Vasquez Mckenzie Jr, MD Signed: 02/21/2022 12:47 PM Workstation Name: [id number]
[2022-02-21] MEDS: EMTRICITABINE 200 MG CAP PO SCH (13:18)
[2022-02-21] MEDS: ASPIRIN 81 MG TAB CHEW PO SCH (13:18)
[2022-02-21] MEDS: levETIRAcetam 500 MG/5 ML ORAL LIQD PO SCH (13:18)
[2022-02-21] MEDS: METOPROLOL TARTRATE 25 MG TAB PO SCH ×2 (13:18→22:24)
[2022-02-21] MEDS: DARUNAVIR 800 MG TAB PO SCH (13:18)
[2022-02-21] MEDS: RITONAVIR 100 MG TAB PO SCH (13:18)
[2022-02-21] MEDS: TENOFOVIR 300 MG TAB PO SCH (13:18)
--- NOTE | 2022-02-21 19:43 | Progress Note ---
Assessment and Plan Assessment and plan: 41 year year female with known history of HIV -CD4 count unknown resident of a nursing brought in to the emergency room today for evaluation of changes in mental status. Most of the history was obtained from the ER staff as patient is unable to give any history at this time. Patient was said to have been having a fever in the [facility]. There has been no history of fall, no nausea or vomiting, no diarrhea, no hematuria or dysuria. Upon arrival in the emergency room patient was found to be tachycardic with heart rate in the 140s. Work-up in the emergency room today, lab reveals mild leukocytosis of 11.5, sodium of 146, hypokalemia of 2.7, BUN of 82 and creatinine of 1.8. Troponin 0.375. Urinalysis was significant for few WBCs and 3+ bacteria. Chest x-ray shows right lung infiltrate possibly representing developing pneumonia. Assessment: #Right lower lobe consolidation secondary to aspiration Chest x-ray revealing right lower lobe pneumonia Likely from aspiration from altered mental status, given antibiotics empirically Afebrile with no respiratory distress. Continue to monitor #Sepsis secondary to Enterococcus UTI/cystitisresolved #Left axilla wound, chronic -T-max 101.5, patient reported fevers at [facility] -Chest x-ray reviewed and UA with pyuria; urine culture pending -Blood cultures collected; coronavirus PCR also ordered -Vancomycin discontinued. 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 -We will continue to monitor Hypotension -BP remains soft without tachycardia but this could be her baseline in the context of possible malnutrition -Receiving IV fluids, avoid volume overload/third spacing. LEAH due to dehydration/hypotension -Resolved with IV fluids/hydration #Severe hypokalemiaresolved #Hypomagnesemia-resolved -K 2.7-> 2.9-->2.8--> 3.7--> 3.0-->4.8 -Continue aggressive potassium repletion. -magnesium repleted #End-stage HIV/AIDS -Absolute CD4 count 34 -Records reviewed from [place], patient taking ARV -Continue prezista, ritonavir, emtricitabine/tenofovir at home doses -ID following, assistance appreciated #moderate to severe protein calorie malnutrition #poor PO intake -Nutrition consult -if patient continues to have poor intake, receiving tube feeds via [place], may need PEG tube prior to discharge -Patient was started on tube feeds via [place] due to encephalopathy -Since mental status improving, started on oral feeds on 02/[address] Bilateral ischemic appearing multiple lesions in feet Stage I/II Continue padding #Seizure disorder -Continue Keppra 1 g daily #Discharge planning -Patient a resident at [facility]. Next of kin contacted (mother Neetu Enamorado [phone]) voicemail left. Plan to discharge back to fci once clinically stable Social: Multiple attempts at the need trying to contact patient's/mother and were unsuccessful. We will continue to follow the patient's mother but we will consider notifying the police for a welfare check. Unsuccessful welfare check as Neetu Childers address is currently unknown. Patient likely will need to become [place] of the state. Patient is also appropria te as a hospice candidate given the severe deterioration she has experienced from end-stage HIV/AIDS. Disposition Plan: Pending further improvement, likely needs placement Discussed with the patient and the nursing staff. History Interval history: Patient is more alert but still confused. ST evaluated, tube feeds changed to oral feedings, tolerating as per nursing report. BP remains soft but without tachycardia. Normal sinus rhythm on telemetry. Hospitalist Physical - Constitutional Vitals: Temp Pulse Resp BP Pulse Ox 96.4 F L 80 18 101/71 99 02/21/22 16:58 02/21/22 16:58 02/21/22 16:58 02/21/22 16:58 02/21/22 16:58 General appearance: Present: no acute distress, cachectic, disheveled, other (Ill kempt) - EENT Eyes: Present: PERRL, EOM intact. Absent: scleral icterus ENT: clear oral mucosa, other (No thrush) - Neck Neck: Present: supple - Respiratory Respiratory effort: normal Respiratory: bilateral: CTA - Cardiovascular Rhythm: regular - Extremities Extremity abnormal: edema, other (Multiple ischemic like lesions in both feet) - Abdominal General gastrointestinal: soft, non-tender, non-distended, normal bowel sounds - Integumentary Integumentary: Absent: rash - Psychiatric Psychiatric: other (Anxious) - Neurologic Neurologic: no focal deficits, moves all extremities, other (More alert, fairly fluent speech but confused.) HEART Score - HEART Score Troponin: Troponin T 0.276 ng/mL (0.00-0.029) H* 02/12/22 04:41 Results - Labs CBC & Chem 7: 02/21/22 03:44 02/21/22 03:44 Labs: Laboratory Last Values WBC 5.3 K/mm3 (4.5-11.0) 02/21/22 03:44 RBC 2.61 M/mm3 (3.65-5.03) L 02/21/22 03:44 Hgb 7.6 gm/dl (10.1-14.3) L 02/21/22 03:44 Hct 23.6 % (30.3-42.9) L 02/21/22 03:44 MCV 90 fl (79-97) 02/21/22 03:44 MCH 29 pg (28-32) 02/21/22 03:44 MCHC 32 % (30-34) 02/21/22 03:44 RDW 16.9 % (13.2-15.2) H 02/21/22 03:44 Plt Count 142 K/mm3 (140-440) 02/21/22 03:44 Lymph % (Auto) 4.9 % (13.4-35.0) L 02/21/22 03:44 [place] % (Auto) 4.2 % (0.0-7.3) 02/21/22 03:44 Eos % (Auto) 0.8 % (0.0-4.3) 02/21/22 03:44 Baso % (Auto) 0.1 % (0.0-1.8) 02/21/22 03:44 Lymph # (Auto) 0.3 K/mm3 (1.2-5.4) L 02/21/22 03:44 [place] # (Auto) 0.2 K/mm3 (0.0-0.8) 02/21/22 03:44 Eos # (Auto) 0.0 K/mm3 (0.0-0.4) 02/21/22 03:44 Baso # (Auto) 0.0 K/mm3 (0.0-0.1) 02/21/22 03:44 Add Manual Diff Complete 02/13/22 04:17 Total Counted 100 02/13/22 04:17 Seg Neutrophils % 90.0 % (40.0-70.0) H 02/21/22 03:44 Seg Neuts % (Manual) 95.0 % (40.0-70.0) H 02/13/22 04:17 Band Neutrophils % 0 % 02/13/22 04:17 Lymphocytes % (Manual) 2.0 % (13.4-35.0) L 02/13/22 04:17 Reactive Lymphs % (Man) 0 % 02/13/22 04:17 Monocytes % (Manual) 3.0 % (0.0-7.3) 02/13/22 04:17 Eosinophils % (Manual) 0 % (0.0-4.3) 02/13/22 04:17 Basophils % (Manual) 0 % (0.0-1.8) 02/13/22 04:17 Metamyelocytes % 0 % 02/13/22 04:17 Myelocytes % 0 % 02/13/22 04:17 Promyelocytes % 0 % 02/13/22 04:17 Blast Cells % 0 % 02/13/22 04:17 Nucleated RBC % Not Reportable 02/13/22 04:17 Seg Neutrophils # 4.8 K/mm3 (1.8-7.7) 02/21/22 03:44 Seg Neutrophils # Man 6.9 K/mm3 (1.8-7.7) 02/13/22 04:17 Band Neutrophils # 0.0 K/mm3 02/13/22 04:17 Abs Lymphs (Manual) 344 cells/uL (850-3900) L 02/11/22 08:08 Lymphocytes # (Manual) 0.1 K/mm3 (1.2-5.4) L 02/13/22 04:17 Abs React Lymphs (Man) 0.0 K/mm3 02/13/22 04:17 Monocytes # (Manual) 0.2 K/mm3 (0.0-0.8) 02/13/22 04:17 Eosinophils # (Manual) 0.0 K/mm3 (0.0-0.4) 02/13/22 04:17 Basophils # (Manual) 0.0 K/mm3 (0.0-0.1) 02/13/22 04:17 Metamyelocytes # 0.0 K/mm3 02/13/22 04:17 Myelocytes # 0.0 K/mm3 02/13/22 04:17 Promyelocytes # 0.0 K/mm3 02/13/22 04:17 Blast Cells # 0.0 K/mm3 02/13/22 04:17 WBC Morphology Not Reportable 02/13/22 04:17 Hypersegmented Neuts Not Reportable 02/13/22 04:17 Hyposegmented Neuts Not Reportable 02/13/22 04:17 Hypogranular Neuts Not Reportable 02/13/22 04:17 Smudge Cells Not Reportable 02/13/22 04:17 Toxic Granulation Not Reportable 02/13/22 04:17 Toxic Vacuolation Not Reportable 02/13/22 04:17 Dohle Bodies Not Reportable 02/13/22 04:17 Pelger-Huet Anomaly Not Reportable 02/13/22 04:17 April Rods Not Reportable 02/13/22 04:17 Platelet Estimate Consistent w auto 02/13/22 04:17 Clumped Platelets Not Reportable 02/13/22 04:17 Plt Clumps, EDTA Not Reportable 02/13/22 04:17 Large Platelets Not Reportable 02/13/22 04:17 Giant Platelets Not Reportable 02/13/22 04:17 Platelet Satelliting Not Reportable 02/13/22 04:17 Plt Morphology Comment Not Reportable 02/13/22 04:17 RBC Morphology Not Reportable 02/13/22 04:17 Dimorphic RBCs Not Reportable 02/13/22 04:17 Polychromasia Not Reportable 02/13/22 04:17 Hypochromasia Not Reportable 02/13/22 04:17 Poikilocytosis Not Reportable 02/13/22 04:17 Anisocytosis Not Reportable 02/13/22 04:17 Microcytosis Not Reportable 02/13/22 04:17 Macrocytosis Not Reportable 02/13/22 04:17 Spherocytes Not Reportable 02/13/22 04:17 Pappenheimer Bodies Not Reportable 02/13/22 04:17 Sickle Cells Not Reportable 02/13/22 04:17 Target Cells Not Reportable 02/13/22 04:17 Tear Drop Cells Not Reportable 02/13/22 04:17 Ovalocytes Not Reportable 02/13/22 04:17 Helmet Cells Not Reportable 02/13/22 04:17 Medrano-Stevens Bodies Not Reportable 02/13/22 04:17 [place] Rings Not Reportable 02/13/22 04:17 Lindsay Cells Not Reportable 02/13/22 04:17 Bite Cells Not Reportable 02/13/22 04:17 Crenated Cell Not Reportable 02/13/22 04:17 Elliptocytes Not Reportable 02/13/22 04:17 Acanthocytes (Spur) Not Reportable 02/13/22 04:17 Rouleaux Not Reportable 02/13/22 04:17 Hemoglobin C Crystals Not Reportable 02/13/22 04:17 Schistocytes Not Reportable 02/13/22 04:17 Malaria parasites Not Reportable 02/13/22 04:17 Flo Bodies Not Reportable 02/13/22 04:17 Hem Pathologist Commnt No 02/13/22 04:17 PT 15.7 Sec. (12.2-14.9) H 02/10/22 19:58 INR 1.12 (0.87-1.13) 02/10/22 19:58 VBG pH 7.483 (7.320-7.420) H 02/10/22 19:58 Sodium 136 mmol/L (137-145) L 02/21/22 03:44 Potassium 4.1 mmol/L (3.6-5.0) 02/21/22 03:44 Chloride 103.3 mmol/L (98-107) 02/21/22 03:44 Carbon Dioxide 23 mmol/L (22-30) 02/21/22 03:44 Anion Gap 14 mmol/L 02/21/22 03:44 BUN 30 mg/dL (7-17) H 02/21/22 03:44 Creatinine 0.8 mg/dL (0.6-1.2) 02/21/22 03:44 Estimated GFR > 60 ml/min 02/21/22 03:44 BUN/Creatinine Ratio 38 % 02/21/22 03:44 Glucose 61 mg/dL (65-100) L 02/21/22 03:44 POC Glucose 70 mg/dL (70-105) 02/21/22 11:13 Lactic Acid 0.90 mmol/L (0.7-2.0) 02/11/22 01:54 Calcium 8.7 mg/dL (8.4-10.2) 02/21/22 03:44 Phosphorus 2.30 mg/dL (2.5-4.5) L 02/14/22 06:58 Magnesium 1.80 mg/dL (1.7-2.3) 02/21/22 03:44 Total Bilirubin 0.40 mg/dL (0.1-1.2) 02/21/22 03:44 AST 54 units/L (5-40) H 02/21/22 03:44 ALT 30 units/L (7-56) 02/21/22 03:44 Alkaline Phosphatase 107 units/L (35-129) 02/21/22 03:44 Total Creatine Kinase 469 units/L (30-135) H 02/10/22 19:58 Troponin T 0.276 ng/mL (0.00-0.029) H* 02/12/22 04:41 Total Protein 5.9 g/dL (6.3-8.2) L 02/21/22 03:44 Albumin 2.0 g/dL (3.9-5) L 02/21/22 03:44 Albumin/Globulin Ratio 0.5 % 02/21/22 03:44 Triglycerides 178 mg/dL (2-149) H 02/10/22 19:58 Cholesterol 130 mg/dL (50-199) 02/10/22 19:58 LDL Cholesterol Direct 50 mg/dL (50-130) 02/10/22 19:58 HDL Cholesterol 36 mg/dL (40-59) L 02/10/22 19:58 Cholesterol/HDL Ratio 3.61 % 02/10/22 19:58 Urine Color Yellow (Yellow) 02/10/22 Unknown Urine Turbidity Clear (Clear) 02/10/22 Unknown Specific [place] (Man) 1.020 (1.003-1.030) 02/10/22 Unknown Ur Protein (Man) 2+ mg/dL (Negative) 02/10/22 Unknown Ur Ketones (Man) 5mg/dl (Negative) 02/10/22 Unknown Ur Nitrite (Man) Negative (Negative) 02/10/22 Unknown Urine Bilirubin (Man) Moderate (Negative) 02/10/22 Unknown Urine Ictotest Negative (Negative) 02/10/22 Unknown Leukocyte Esterase (Man) Negative (Negative) 02/10/22 Unknown Urine WBC (Auto) 7.0 /HPF (0.0-6.0) H 02/10/22 Unknown Urine RBC (Auto) 2.0 /HPF (0.0-6.0) 02/10/22 Unknown U Epithel Cells (Auto) 5.0 /HPF (0-13.0) 02/10/22 Unknown Urine Bacteria (Auto) 3+ /HPF (Negative) 02/10/22 Unknown Urine RBC (Manual) 5+ (Negative) 02/10/22 Unknown Urine Mucus Few /HPF 02/10/22 Unknown Urine Yeast (Budding) 2+ /HPF 02/10/22 Unknown Lymph Enumerat CD4/CD8 0.24 (0.86-5.00) L 02/11/22 08:08 % CD3 Cells 53 % (57-85) L 02/11/22 08:08 Absolute CD3 Count 184 cells/uL (840-3060) L 02/11/22 08:08 % CD4 Cells 10 % (30-61) L 02/11/22 08:08 Absolute CD4 Count 34 cells/uL (490-1740) L 02/11/22 08:08 % CD8 Cells 42 % (12-42) 02/11/22 08:08 Absolute CD8 Count 145 cells/uL (180-1170) L 02/11/22 08:08 % CD19 Cells 10 % (6-29) 02/11/22 08:08 Absolute CD19 Count 35 cells/uL (110-660) L 02/11/22 08:08 Coronavirus (PCR) Positive (Negative) A 02/19/22 13:20 Hepatitis A IgM Ab Non-reactive (NonReactive) 02/20/22 12:22 Hep Bs Antigen Reactive (Negative) 02/20/22 12:22 Hep B Core IgM Ab Non-reactive (NonReactive) 02/20/22 12:22 Hepatitis C Antibody Non-reactive (NonReactive) 02/20/22 12:22 HIV-1 RNA PCR copies/ml 225 Copies/mL H 02/13/22 08:47 HIV-1 RNA (PCR) log 2.35 Log cps/mL H 02/13/22 08:47 Microbiology: Microbiology 02/18/22 06:58 Peripheral/Venous Blood Culture - Preliminary NO GROWTH AFTER 72 HOURS 02/18/22 05:46 Peripheral/Venous Blood Culture - Preliminary NO GROWTH AFTER 72 HOURS Bunn/IV: Voiding Method External Female Catheter Active Medications - Current Medications Current Medications: Generic Name Dose Route Start Last Admin Trade Name Freq PRN Reason Stop Dose Admin Acetaminophen 650 mg 02/10/22 22:29 Acetaminophen 325 Mg Tab PO Q4H PRN Pain MILD(1-3)/Fever >100.5/BONNER Aspirin 81 mg 02/12/22 10:00 02/21/22 13:18 Aspirin 81 Mg Tab Chew PO 81 mg QDAY MARTINEZ Administration Atorvastatin Calcium 20 mg 02/11/22 22:00 02/20/22 21:55 Atorvastatin 20 Mg Tab PO 20 mg QHS MARTINEZ Administration Darunavir 800 mg 02/11/22 18:00 02/21/22 13:18 Darunavir 800 Mg Tab PO 800 mg QDAY MARTINEZ Administration Dextrose 25 ml 02/18/22 02:16 02/21/22 06:31 Dextrose 50% In Water (25gm) 50 Ml Syringe IV 25 ml Q30MIN PRN Administration Hypoglycemia Protocol Emtricitabine 200 mg 02/11/22 18:00 02/21/22 13:18 Emtricitabine 200 Mg Cap PO 200 mg QDAY MARTINEZ Administration Heparin Sodium (Porcine) 5,000 unit 02/11/22 06:00 02/21/22 13:19 Heparin 5,000 Unit/1 Ml Vial SUB-Q 5,000 unit Q8HR MARTINEZ Administration Hydrochlorothiazide 25 mg 02/11/22 18:00 02/21/22 12:06 Hydrochlorothiazide 25 Mg Tab PO Not Given QDAY MARTINEZ Dextrose/Sodium Chloride 1,000 mls @ 75 mls/hr 02/11/22 22:00 02/20/22 02:26 D5/0.45ns IV 75 mls/hr DIRECT MARTINEZ Administration Levetiracetam 1,000 mg 02/18/22 11:00 02/21/22 13:18 Levetiracetam 500 Mg/5 Ml Oral Liqd PO 1,000 mg DAILY MARTINEZ Administration Magnesium Hydroxide 30 ml 02/10/22 22:29 Magnesium Hydroxide (Mom) Oral Liqd Udc PO Q4H PRN Constipation Metoprolol Tartrate 25 mg 02/18/22 11:00 02/21/22 13:18 Metoprolol Tartrate 25 Mg Tab PO Not Given BID MARTINEZ Ondansetron HCl 4 mg 02/10/22 22:29 Ondansetron 4 Mg/2 Ml Inj IV Q8H PRN Nausea And Vomiting Ritonavir 100 mg 02/11/22 18:00 02/21/22 13:18 Ritonavir 100 Mg Tab PO 100 mg QDAY MARTINEZ Administration Scopolamine 1 each 02/18/22 10:00 02/18/22 11:21 Scopolamine Transdermal Patch 72 Hr TD 1 each Q72HR MARTINEZ Administration Sodium Chloride 10 ml 02/11/22 10:00 02/21/22 13:19 Sodium Chloride 0.9% 10 Ml Flush Syringe IV 10 ml BID MARTINEZ Administration Sodium Chloride 10 ml 02/10/22 22:29 Sodium Chloride 0.9% 10 Ml Flush Syringe IV PRN PRN LINE FLUSH Tenofovir Disoproxil Fumarate 300 mg 02/11/22 18:00 02/21/22 13:18 Tenofovir 300 Mg Tab PO 300 mg QDAY MARTINEZ Administration Nutrition/Malnutrition Assess - Dietary Evaluation Nutrition/Malnutrition Findings: Nutrition Notes Start: 02/11/22 14:09 Freq: Status: Active Protocol: Document 02/18/22 13:15 CM (Rec: 02/18/22 13:29 CM [id number]) Co-Sign 02/18/22 13:15 WW Nutrition Notes Initial or Follow up Brief Note Current Diagnosis Sepsis,Malnutrition Other Pertinent Diagnosis AMS, HIV, Seizure, L Axilla Wound Current Diet Glucerna @ 40mL/hr Labs/Tests 02/18: Na 134 Cl 108.2 CO2 18 BUN 35 Pertinent Medications 02/18: Atorvastatin Hctz Height 5 ft Weight 63 kg [place] Body Weight (kg) 45.45 BMI 27.1 Weight Status Overweight Subjective/Other Information RD follow-up per protocol. Pt currently receiving Glucerna @ 45mL/hr. Recommend changing tube feed to Osmolite 1.5 @ 45mL/hr ( goal). Pt tolerating TF per RN. Abdomen soft, non-tender, round w/ BS+ per physical assessment. Last BM 02/17. Burn Absent Trauma Absent GI Symptoms None Difficulty In Swallowing Skin Integrity/Comment L-Axila wound Current % PO Other #2 Nutrition Diagnosis Inadequate oral intake Diagnosis Progress(for reassessment Continues documentation) #1 Nutrition Diagnosis Altered nutrition-related laboratory values Comments: 02/18: Na 135, BUN 35 Diagnosis Progress(for reassessment Worsened documentation) Is patient on ventilator? No Is Patient Ambulatory and/or Out of Bed No REE-([facility]-confined to bed) 1462.980 Kcal/Kg value to use for calculation 25 Approximate Energy Requirements Using 1575 kcal/Kg Calculation Used for Recommendations [facility] Additional Notes Protein: 1.0-1.2g/kg ABW; 63- 76g PRO q day Fluids: 1 ml/Kcal or as per MD . Nutrition Intervention Nutrition Support: Modify TF to Osmolite 1.5 @ 45mL/hr. Flush with 135mL q 4hr or per MD. Kcal 1,620 Protein (gm) 68 % RDI: 103%Kcal/100%AA Goal #1 Pt to consume >75% of estimated energy/protein needs through enteral nutrition Goal #2 Pt to maintain current wt status within 2.5% during LOS Follow-Up By: 02/22/22 Additional Comments Monitor enteral nutrition administration, nutrition- related labs, and wt status.
[2022-02-22] MEDS: D5W/0.45% NACL 1,000 ML IV SCH (00:39)
[2022-02-22] MEDS: HEPARIN 5,000 UNIT/1 ML VIAL SUB-Q SCH ×3 (06:36→21:23)
--- NOTE | 2022-02-22 11:17 | Progress Note ---
Assessment and Plan Assessment and plan: #Right lower lobe consolidation secondary to aspiration Chest x-ray revealing right lower lobe pneumonia Likely from aspiration from altered mental status, given antibiotics empirically Afebrile with no respiratory distress. Continue to monitor #Sepsis secondary to Enterococcus UTI/cystitisresolved #Left axilla wound, chronic -T-max 101.5, patient reported fevers at snf -Chest x-ray reviewed and UA with pyuria; urine culture pending -Blood cultures collected; coronavirus PCR also ordered -Vancomycin discontinued. 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 -We will continue to monitor Hypotension -BP remains soft without tachycardia but this could be her baseline in the context of possible malnutrition -Receiving IV fluids, avoid volume overload/third spacing. LEAH due to dehydration/hypotensionresolved -Resolved with IV fluids/hydration #Severe hypokalemiaresolved #Hypomagnesemia-resolved -K 2.7-> 2.9-->2.8--> 3.7--> 3.0-->4.8 -Continue aggressive potassium repletion. -magnesium repleted #End-stage HIV/AIDS -Absolute CD4 count 34 -Records reviewed from [place], patient taking ARV -Continue prezista, ritonavir, emtricitabine/tenofovir at home doses -ID following, assistance appreciated #moderate to severe protein calorie malnutrition #poor PO intake -Nutrition consult -if patient continues to have poor intake, receiving tube feeds via [place], may need PEG tube prior to discharge -Patient was started on tube feeds via [place] due to encephalopathy -Since mental status improving, started on oral feeds on 02/[address] Bilateral ischemic appearing multiple lesions in feet Stage I/II Continue padding #Seizure disorder -Continue Keppra 1 g daily #Discharge planning -Patient a resident at [facility]. Next of kin contacted (mother Neetu Enamorado [phone]) voicemail left. Plan to discharge back to snf once clinically stable Social: Multiple attempts at the need trying to contact patient's/mother and were unsuccessful. We will continue to follow the patient's mother but we will consider notifying the police for a welfare check. Unsuccessful welfare check as Neetu Childers address is currently unknown. Patient likely will need to become [place] of the state. Patient is also appropriate as a hospice candidate given the severe deterioration she has experienced from end-stage HIV/AIDS. Disposition Plan: Pending placement Total Time Spent with Patient (Minutes): 30 minutes History Interval history: No acute events overnight. Hospitalist Physical - Constitutional Vitals: Temp Pulse Resp BP Pulse Ox 97.2 F L 62 16 86/49 100 02/22/22 04:51 02/22/22 04:51 02/22/22 04:51 02/22/22 04:51 02/22/22 04:51 General appearance: Present: no acute distress, cachectic, disheveled, other (Ill kempt) - EENT Eyes: Present: PERRL, EOM intact ENT: hearing intact, oropharyngeal erythema, poor dentition, edentulous - Neck Neck: Present: supple, normal ROM - Respiratory Respiratory effort: normal Respiratory: bilateral: diminished (On 2 L nasal cannula) - Cardiovascular Rhythm: regular Heart Sounds: Present: S1 & S2 - Extremities Extremities: no ischemia, pulses intact, pulses symmetrical, No edema, normal temperature, normal color Peripheral Pulses: within normal limits - Abdominal General gastrointestinal: soft, non-tender, non-distended, normal bowel sounds - Integumentary Integumentary: Present: clear, warm, dry - Psychiatric Psychiatric: appropriate mood/affect - Neurologic Neurologic: CNII-XII intact - Allied Health Allied health notes reviewed: nursing HEART Score - HEART Score Troponin: Troponin T 0.276 ng/mL (0.00-0.029) H* 02/12/22 04:41 Results - Labs CBC & Chem 7: 02/21/22 03:44 02/21/22 03:44 Labs: Laboratory Last Values WBC 5.3 K/mm3 (4.5-11.0) 02/21/22 03:44 RBC 2.61 M/mm3 (3.65-5.03) L 02/21/22 03:44 Hgb 7.6 gm/dl (10.1-14.3) L 02/21/22 03:44 Hct 23.6 % (30.3-42.9) L 02/21/22 03:44 MCV 90 fl (79-97) 02/21/22 03:44 MCH 29 pg (28-32) 02/21/22 03:44 MCHC 32 % (30-34) 02/21/22 03:44 RDW 16.9 % (13.2-15.2) H 02/21/22 03:44 Plt Count 142 K/mm3 (140-440) 02/21/22 03:44 Lymph % (Auto) 4.9 % (13.4-35.0) L 02/21/22 03:44 [place] % (Auto) 4.2 % (0.0-7.3) 02/21/22 03:44 Eos % (Auto) 0.8 % (0.0-4.3) 02/21/22 03:44 Baso % (Auto) 0.1 % (0.0-1.8) 02/21/22 03:44 Lymph # (Auto) 0.3 K/mm3 (1.2-5.4) L 02/21/22 03:44 [place] # (Auto) 0.2 K/mm3 (0.0-0.8) 02/21/22 03:44 Eos # (Auto) 0.0 K/mm3 (0.0-0.4) 02/21/22 03:44 Baso # (Auto) 0.0 K/mm3 (0.0-0.1) 02/21/22 03:44 Add Manual Diff Complete 02/13/22 04:17 Total Counted 100 02/13/22 04:17 Seg Neutrophils % 90.0 % (40.0-70.0) H 02/21/22 03:44 Seg Neuts % (Manual) 95.0 % (40.0-70.0) H 02/13/22 04:17 Band Neutrophils % 0 % 02/13/22 04:17 Lymphocytes % (Manual) 2.0 % (13.4-35.0) L 02/13/22 04:17 Reactive Lymphs % (Man) 0 % 02/13/22 04:17 Monocytes % (Manual) 3.0 % (0.0-7.3) 02/13/22 04:17 Eosinophils % (Manual) 0 % (0.0-4.3) 02/13/22 04:17 Basophils % (Manual) 0 % (0.0-1.8) 02/13/22 04:17 Metamyelocytes % 0 % 02/13/22 04:17 Myelocytes % 0 % 02/13/22 04:17 Promyelocytes % 0 % 02/13/22 04:17 Blast Cells % 0 % 02/13/22 04:17 Nucleated RBC % Not Reportable 02/13/22 04:17 Seg Neutrophils # 4.8 K/mm3 (1.8-7.7) 02/21/22 03:44 Seg Neutrophils # Man 6.9 K/mm3 (1.8-7.7) 02/13/22 04:17 Band Neutrophils # 0.0 K/mm3 02/13/22 04:17 Abs Lymphs (Manual) 344 cells/uL (850-3900) L 02/11/22 08:08 Lymphocytes # (Manual) 0.1 K/mm3 (1.2-5.4) L 02/13/22 04:17 Abs React Lymphs (Man) 0.0 K/mm3 02/13/22 04:17 Monocytes # (Manual) 0.2 K/mm3 (0.0-0.8) 02/13/22 04:17 Eosinophils # (Manual) 0.0 K/mm3 (0.0-0.4) 02/13/22 04:17 Basophils # (Manual) 0.0 K/mm3 (0.0-0.1) 02/13/22 04:17 Metamyelocytes # 0.0 K/mm3 02/13/22 04:17 Myelocytes # 0.0 K/mm3 02/13/22 04:17 Promyelocytes # 0.0 K/mm3 02/13/22 04:17 Blast Cells # 0.0 K/mm3 02/13/22 04:17 WBC Morphology Not Reportable 02/13/22 04:17 Hypersegmented Neuts Not Reportable 02/13/22 04:17 Hyposegmented Neuts Not Reportable 02/13/22 04:17 Hypogranular Neuts Not Reportable 02/13/22 04:17 Smudge Cells Not Reportable 02/13/22 04:17 Toxic Granulation Not Reportable 02/13/22 04:17 Toxic Vacuolation Not Reportable 02/13/22 04:17 Dohle Bodies Not Reportable 02/13/22 04:17 Pelger-Huet Anomaly Not Reportable 02/13/22 04:17 April Rods Not Reportable 02/13/22 04:17 Platelet Estimate Consistent w auto 02/13/22 04:17 Clumped Platelets Not Reportable 02/13/22 04:17 Plt Clumps, EDTA Not Reportable 02/13/22 04:17 Large Platelets Not Reportable 02/13/22 04:17 Giant Platelets Not Reportable 02/13/22 04:17 Platelet Satelliting Not Reportable 02/13/22 04:17 Plt Morphology Comment Not Reportable 02/13/22 04:17 RBC Morphology Not Reportable 02/13/22 04:17 Dimorphic RBCs Not Reportable 02/13/22 04:17 Polychromasia Not Reportable 02/13/22 04:17 Hypochromasia Not Reportable 02/13/22 04:17 Poikilocytosis Not Reportable 02/13/22 04:17 Anisocytosis Not Reportable 02/13/22 04:17 Microcytosis Not Reportable 02/13/22 04:17 Macrocytosis Not Reportable 02/13/22 04:17 Spherocytes Not Reportable 02/13/22 04:17 Pappenheimer Bodies Not Reportable 02/13/22 04:17 Sickle Cells Not Reportable 02/13/22 04:17 Target Cells Not Reportable 02/13/22 04:17 Tear Drop Cells Not Reportable 02/13/22 04:17 Ovalocytes Not Reportable 02/13/22 04:17 Helmet Cells Not Reportable 02/13/22 04:17 [place] Bodies Not Reportable 02/13/22 04:17 [place] Rings Not Reportable 02/13/22 04:17 [place] Cells Not Reportable 02/13/22 04:17 Bite Cells Not Reportable 02/13/22 04:17 Crenated Cell Not Reportable 02/13/22 04:17 Elliptocytes Not Reportable 02/13/22 04:17 Acanthocytes (Spur) Not Reportable 02/13/22 04:17 Rouleaux Not Reportable 02/13/22 04:17 Hemoglobin C Crystals Not Reportable 02/13/22 04:17 Schistocytes Not Reportable 02/13/22 04:17 Malaria parasites Not Reportable 02/13/22 04:17 Flo Bodies Not Reportable 02/13/22 04:17 Hem Pathologist Commnt No 02/13/22 04:17 PT 15.7 Sec. (12.2-14.9) H 02/10/22 19:58 INR 1.12 (0.87-1.13) 02/10/22 19:58 VBG pH 7.483 (7.320-7.420) H 02/10/22 19:58 Sodium 136 mmol/L (137-145) L 02/21/22 03:44 Potassium 4.1 mmol/L (3.6-5.0) 02/21/22 03:44 Chloride 103.3 mmol/L (98-107) 02/21/22 03:44 Carbon Dioxide 23 mmol/L (22-30) 02/21/22 03:44 Anion Gap 14 mmol/L 02/21/22 03:44 BUN 30 mg/dL (7-17) H 02/21/22 03:44 Creatinine 0.8 mg/dL (0.6-1.2) 02/21/22 03:44 Estimated GFR > 60 ml/min 02/21/22 03:44 BUN/Creatinine Ratio 38 % 02/21/22 03:44 Glucose 61 mg/dL (65-100) L 02/21/22 03:44 POC Glucose 97 mg/dL (70-105) 02/22/22 05:58 Lactic Acid 0.90 mmol/L (0.7-2.0) 02/11/22 01:54 Calcium 8.7 mg/dL (8.4-10.2) 02/21/22 03:44 Phosphorus 2.30 mg/dL (2.5-4.5) L 02/14/22 06:58 Magnesium 1.80 mg/dL (1.7-2.3) 02/21/22 03:44 Total Bilirubin 0.40 mg/dL (0.1-1.2) 02/21/22 03:44 AST 54 units/L (5-40) H 02/21/22 03:44 ALT 30 units/L (7-56) 02/21/22 03:44 Alkaline Phosphatase 107 units/L (35-129) 02/21/22 03:44 Total Creatine Kinase 469 units/L (30-135) H 02/10/22 19:58 Troponin T 0.276 ng/mL (0.00-0.029) H* 02/12/22 04:41 Total Protein 5.9 g/dL (6.3-8.2) L 02/21/22 03:44 Albumin 2.0 g/dL (3.9-5) L 02/21/22 03:44 Albumin/Globulin Ratio 0.5 % 02/21/22 03:44 Triglycerides 178 mg/dL (2-149) H 02/10/22 19:58 Cholesterol 130 mg/dL (50-199) 02/10/22 19:58 LDL Cholesterol Direct 50 mg/dL (50-130) 02/10/22 19:58 HDL Cholesterol 36 mg/dL (40-59) L 02/10/22 19:58 Cholesterol/HDL Ratio 3.61 % 02/10/22 19:58 Urine Color Yellow (Yellow) 02/10/22 Unknown Urine Turbidity Clear (Clear) 02/10/22 Unknown Specific [place] (Man) 1.020 (1.003-1.030) 02/10/22 Unknown Ur Protein (Man) 2+ mg/dL (Negative) 02/10/22 Unknown Ur Ketones (Man) 5mg/dl (Negative) 02/10/22 Unknown Ur Nitrite (Man) Negative (Negative) 02/10/22 Unknown Urine Bilirubin (Man) Moderate (Negative) 02/10/22 Unknown Urine Ictotest Negative (Negative) 02/10/22 Unknown Leukocyte Esterase (Man) Negative (Negative) 02/10/22 Unknown Urine WBC (Auto) 7.0 /HPF (0.0-6.0) H 02/10/22 Unknown Urine RBC (Auto) 2.0 /HPF (0.0-6.0) 02/10/22 Unknown U Epithel Cells (Auto) 5.0 /HPF (0-13.0) 02/10/22 Unknown Urine Bacteria (Auto) 3+ /HPF (Negative) 02/10/22 Unknown Urine RBC (Manual) 5+ (Negative) 02/10/22 Unknown Urine Mucus Few /HPF 02/10/22 Unknown Urine Yeast (Budding) 2+ /HPF 02/10/22 Unknown Lymph Enumerat CD4/CD8 0.24 (0.86-5.00) L 02/11/22 08:08 % CD3 Cells 53 % (57-85) L 02/11/22 08:08 Absolute CD3 Count 184 cells/uL (840-3060) L 02/11/22 08:08 % CD4 Cells 10 % (30-61) L 02/11/22 08:08 Absolute CD4 Count 34 cells/uL (490-1740) L 02/11/22 08:08 % CD8 Cells 42 % (12-42) 02/11/22 08:08 Absolute CD8 Count 145 cells/uL (180-1170) L 02/11/22 08:08 % CD19 Cells 10 % (6-29) 02/11/22 08:08 Absolute CD19 Count 35 cells/uL (110-660) L 02/11/22 08:08 Coronavirus (PCR) Positive (Negative) A 02/19/22 13:20 Hepatitis A IgM Ab Non-reactive (NonReactive) 02/20/22 12:22 Hep Bs Antigen Reactive (Negative) 02/20/22 12:22 Hep B Core IgM Ab Non-reactive (NonReactive) 02/20/22 12:22 Hepatitis C Antibody Non-reactive (NonReactive) 02/20/22 12:22 HIV-1 RNA PCR copies/ml 225 Copies/mL H 02/13/22 08:47 HIV-1 RNA (PCR) log 2.35 Log cps/mL H 02/13/22 08:47 Microbiology: Microbiology 02/18/22 06:58 Peripheral/Venous Blood Culture - Preliminary NO GROWTH AFTER 4 DAYS 02/18/22 05:46 Peripheral/Venous Blood Culture - Preliminary NO GROWTH AFTER 4 DAYS [place]/IV: Voiding Method External Female Catheter Active Medications - Current Medications Current Medications: Generic Name Dose Route Start Last Admin Trade Name Freq PRN Reason Stop Dose Admin Acetaminophen 650 mg 02/10/22 22:29 02/22/22 00:43 Acetaminophen 325 Mg Tab PO 650 mg Q4H PRN Administration Pain MILD(1-3)/Fever >100.5/BONNER Aspirin 81 mg 02/12/22 10:00 02/21/22 13:18 Aspirin 81 Mg Tab Chew PO 81 mg QDAY MARTINEZ Administration Atorvastatin Calcium 20 mg 02/11/22 22:00 02/21/22 22:24 Atorvastatin 20 Mg Tab PO 20 mg QHS MARTINEZ Administration Darunavir 800 mg 02/11/22 18:00 02/21/22 13:18 Darunavir 800 Mg Tab PO 800 mg QDAY MARTINEZ Administration Dextrose 25 ml 02/18/22 02:16 02/21/22 06:31 Dextrose 50% In Water (25gm) 50 Ml Syringe IV 25 ml Q30MIN PRN Administration Hypoglycemia Protocol Emtricitabine 200 mg 02/11/22 18:00 02/21/22 13:18 Emtricitabine 200 Mg Cap PO 200 mg QDAY MARTINEZ Administration Heparin Sodium (Porcine) 5,000 unit 02/11/22 06:00 02/22/22 06:36 Heparin 5,000 Unit/1 Ml Vial SUB-Q 5,000 unit Q8HR MARTINEZ Administration Hydrochlorothiazide 25 mg 02/11/22 18:00 02/21/22 12:06 Hydrochlorothiazide 25 Mg Tab PO Not Given QDAY MARTINEZ Dextrose/Sodium Chloride 1,000 mls @ 75 mls/hr 02/11/22 22:00 02/22/22 00:39 D5/0.45ns IV 75 mls/hr DIRECT MARTINEZ Administration Levetiracetam 1,000 mg 02/18/22 11:00 02/21/22 13:18 Levetiracetam 500 Mg/5 Ml Oral Liqd PO 1,000 mg DAILY MARTINEZ Administration Magnesium Hydroxide 30 ml 02/10/22 22:29 Magnesium Hydroxide (Mom) Oral Liqd Udc PO Q4H PRN Constipation Metoprolol Tartrate 25 mg 02/18/22 11:00 02/21/22 22:24 Metoprolol Tartrate 25 Mg Tab PO 25 mg BID MARTINEZ Administration Ondansetron HCl 4 mg 02/10/22 22:29 Ondansetron 4 Mg/2 Ml Inj IV Q8H PRN Nausea And Vomiting Ritonavir 100 mg 02/11/22 18:00 02/21/22 13:18 Ritonavir 100 Mg Tab PO 100 mg QDAY MARTINEZ Administration Scopolamine 1 each 02/18/22 10:00 02/18/22 11:21 Scopolamine Transdermal Patch 72 Hr TD 1 each Q72HR MARTINEZ Administration Sodium Chloride 10 ml 02/11/22 10:00 02/21/22 22:24 Sodium Chloride 0.9% 10 Ml Flush Syringe IV 10 ml BID MARTINEZ Administration Sodium Chloride 10 ml 02/10/22 22:29 Sodium Chloride 0.9% 10 Ml Flush Syringe IV PRN PRN LINE FLUSH Tenofovir Disoproxil Fumarate 300 mg 02/11/22 18:00 02/21/22 13:18 Tenofovir 300 Mg Tab PO 300 mg QDAY MARTINEZ Administration Nutrition/Malnutrition Assess - Dietary Evaluation Nutrition/Malnutrition Findings: Nutrition Notes Start: 02/11/22 14:09 Freq: Status: Active Protocol: Document 02/18/22 13:15 CM (Rec: 02/18/22 13:29 CM [id number]) Co-Sign 02/18/22 13:15 WW Nutrition Notes Initial or Follow up Brief Note Current Diagnosis Sepsis,Malnutrition Other Pertinent Diagnosis AMS, HIV, Seizure, L Axilla Wound Current Diet Glucerna @ 40mL/hr Labs/Tests 02/18: Na 134 Cl 108.2 CO2 18 BUN 35 Pertinent Medications 02/18: Atorvastatin Hctz Height 5 ft Weight 63 kg [place] Body Weight (kg) 45.45 BMI 27.1 Weight Status Overweight Subjective/Other Information RD follow-up per protocol. Pt currently receiving Glucerna @ 45mL/hr. Recommend changing tube feed to Osmolite 1.5 @ 45mL/hr ( goal). Pt tolerating TF per RN. Abdomen soft, non-tender, round w/ BS+ per physical assessment. Last BM 02/17. Burn Absent Trauma Absent GI Symptoms None Difficulty In Swallowing Skin Integrity/Comment L-Axila wound Current % PO Other #2 Nutrition Diagnosis Inadequate oral intake Diagnosis Progress(for reassessment Continues documentation) #1 Nutrition Diagnosis Altered nutrition-related laboratory values Comments: 02/18: Na 135, BUN 35 Diagnosis Progress(for reassessment Worsened documentation) Is patient on ventilator? No Is Patient Ambulatory and/or Out of Bed No REE-([facility]-confined to bed) 1462.980 Kcal/Kg value to use for calculation 25 Approximate Energy Requirements Using 1575 kcal/Kg Calculation Used for Recommendations [facility] Additional Notes Protein: 1.0-1.2g/kg ABW; 63- 76g PRO q day Fluids: 1 ml/Kcal or as per MD . Nutrition Intervention Nutrition Support: Modify TF to Osmolite 1.5 @ 45mL/hr. Flush with 135mL q 4hr or per MD. Kcal 1,620 Protein (gm) 68 % RDI: 103%Kcal/100%AA Goal #1 Pt to consume >75% of estimated energy/protein needs through enteral nutrition Goal #2 Pt to maintain current wt status within 2.5% during LOS Follow-Up By: 02/22/22 Additional Comments Monitor enteral nutrition administration, nutrition- related labs, and wt status.
[2022-02-22] MEDS: hydroCHLOROthiazide 25 MG TAB PO SCH (11:39)
[2022-02-22] MEDS: METOPROLOL TARTRATE 25 MG TAB PO SCH ×2 (11:40→21:20)
[2022-02-22] MEDS: RITONAVIR 100 MG TAB PO SCH (13:30)
[2022-02-22] MEDS: EMTRICITABINE 200 MG CAP PO SCH (13:30)
[2022-02-22] MEDS: levETIRAcetam 500 MG/5 ML ORAL LIQD PO SCH (13:31)
[2022-02-22] MEDS: TENOFOVIR 300 MG TAB PO SCH (13:31)
[2022-02-22] MEDS: DARUNAVIR 800 MG TAB PO SCH (13:31)
[2022-02-22] MEDS: ASPIRIN 81 MG TAB CHEW PO SCH (13:33)
[2022-02-22 20:53] VITALS: BP 97/53
== END 2022-02-22 22:42 | disposition hospice, inpatient (51) | DRG 974 ==
LOC: ED 18:36 → 3A 22:29
PROVIDERS: ADMIT Internal Medicine Geriatric Medicine; ATTEND Student in an Organized Health Care Education/Training Program
DX: A41.81 Sepsis due to Enterococcus (principal); E43 Unspecified severe protein-calorie malnutrition; B20 Human immunodeficiency virus [HIV] disease; L89.153 Pressure ulcer of sacral region, stage 3; G92.8 Other toxic encephalopathy; U07.1 COVID-19; J69.0 Pneumonitis due to inhalation of food and vomit; J96.91 Respiratory failure, unspecified with hypoxia; N17.0 Acute kidney failure with tubular necrosis; E87.6 Hypokalemia; E83.42 Hypomagnesemia; G40.909 Epilepsy, unspecified, not intractable, without status epilepticus; S41.102A Unspecified open wound of left upper arm, initial encounter; L89.612 Pressure ulcer of right heel, stage 2; E86.0 Dehydration; N18.30 Chronic kidney disease, stage 3 unspecified; Z51.5 Encounter for palliative care; Z88.0 Allergy status to penicillin; N30.90 Cystitis, unspecified without hematuria
CPT/HCPCS: 36415; 71045; 74018; 74230; 80048; 80053; 80061; 80074; 81001; 82024; 82140; 82550; 82805; 82962; 83735; 84100; 84132; 84484; 85007; 85025; 85027; 85610; 87040; 87076; 87086; 87186; 87536; 93005; 96365; 96366; 99285; G0378; J3490; J7070; J0692; J0696; J1644; J2270; J3370; J3480; J7030; J7050; U0003